=== PATIENT | female | born 1940 | race Caucasian/White ===

== ENCOUNTER 2016-08-18 08:34 | Inpatient (IN) ==
--- NOTE | 2016-08-15 22:32 | Discharge Summary ---
<Delicia Dangelo - Last Filed: 08/18/16 10:37> Date of Encounter: 08/18/16 - Discharge Diagnosis (1) Arthritis of knee, right Priority: Primary Status: Acute (2) Hypertension Status: Chronic Qualifiers: Hypertension type: unspecified secondary hypertension Qualified Code(s): I15.9 - Secondary hypertension, unspecified; I15 - Secondary hypertension (3) Obesity (BMI 35.0-39.9 without comorbidity) Status: Chronic (4) Thyroid disease Status: Chronic - Discharge Medications Home Medications: Albuterol Sulfate [Ventolin Hfa] 2 puff IH Q4-6H PRN 06/10/16 [History] Docusate [Colace] 100 mg PO DAILY 06/10/16 [History] Ferrous Sulfate [Iron] 325 mg PO TID 06/10/16 [History] Levothyroxine [Synthroid] 75 mcg PO DAILY 06/10/16 [History] Omeprazole [PriLOSEC] 20 mg PO DAILY 06/10/16 [History] Folic Acid 1 mg PO DAILY #90 tablet 06/17/16 [Rx] Ascorbic Acid [Vitamin C] 250 mg PO DAILY 08/18/16 [History] Aspirin Enteric Coated [Aspirin EC] 325 mg PO DAILY #21 tablet.dr 08/18/16 [Rx] Cyclobenzaprine [Flexeril] 10 mg PO TID PRN 08/18/16 [History] Haloperidol [Haldol] 0.5 mg PO HS 08/18/16 [History] Meloxicam [Mobic] 7.5 mg PO DAILY 08/18/16 [History] OxyCODONE Immed Rel [Roxicodone 5 MG] 5 - 10 mg PO Q6HR PRN #40 tablet 08/18/16 [Rx] Allergies/Adverse Reactions: Allergies Penicillins [PCN] Allergy (Unknown, Verified 08/18/16 09:08) Rash Primary care physician: Sharonda Bender CNP - Patient Status Disposition: Transfer Inpatient Rehab Fac Condition: Good - Discharge Instructions Follow Up With: Sharnoda Bender CNP [Primary Care Provider] - - Hospital Course Hospital course: Ms. Langston is a 75 year old female - Time Spent with Patient Total time spent providing and/or coordinating discharge services: <Jhon Hall - Last Filed: 08/20/16 11:36> Date of Encounter: 08/20/16 Time of Encounter: 11:36 - Discharge Diagnosis (1) Hypertension Priority: Secondary Status: Chronic Qualifiers: Qualified Code(s): I15.9 - Secondary hypertension, unspecified; I15 - Secondary hypertension (2) Obesity (BMI 35.0-39.9 without comorbidity) Priority: Secondary Status: Chronic (3) Thyroid disease Priority: Secondary Status: Chronic (4) Arthritis of knee, right Priority: Primary Status: Acute (5) Acute blood loss anemia Priority: Primary Status: Acute Primary care physician: Sharonda Bender CNP - Patient Status Functional capacity at discharge: uses cane/walker Overall status at discharge: patient is progressing back to baseline - Hospital Course Hospital course: Ms. Langston is a 75 year old female The patient had an uneventful postoperative course. They received antibiotics and physical therapy and were discharged in stable condition. There will follow -up in the office in 2 weeks. - Time Spent with Patient Total time spent providing and/or coordinating discharge services:
--- NOTE | 2016-08-18 08:47 | History & Physical Report ---
Date of Encounter: 08/18/16 Time of Encounter: 08:46 24 Hour HP Update - Instructions Instructions: If the History and Physical is less than 30 days old and was completed prior to A.M. admission and or procedure and has NOT been updated on calendar day of procedure please complete this update prior to performing procedure. - Update Patient reports changes in Medical Condition: No Changes in assessment/condition: No Changes in Medication: No Preop tests/diagnostics Reviewed: Yes Surgery Remains Indicated: Yes Consent for Planned Operative Procedure(s) Verified: Yes - Pre-Operative Checklist Preoperative Checklist Indicated: No Prophylactic Antibiotic Ordered: Yes Is VTE Prophylaxis Indicated?: Yes
[2016-08-18] MEDS ORDERED: Lidocaine 1% 20 ML MDV ID ONE (09:03)
[2016-08-18] MEDS ORDERED: Clindamycin 900 MG/50 ML 900 MG/50 ML IV.SOLN IVPB ONE (09:03)
--- NOTE | 2016-08-18 09:08 | Anesthesia Evaluation PreOp ---
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 SUPERVISOR History: Denies Any Significant HX Other Medical History: Thyroid, GERD Anesthesia History: No Prior Anesthetic Complications, Past Anesthesia (c/s, appy, cholecyst, t&a, tahbso, r tka, bilat cataracts) Alcohol Use: none Drug use: none Medications and Allergies Albuterol Sulfate [Ventolin Hfa] 2 puff IH Q4-6H PRN 06/10/16 [History] Docusate [Colace] 100 mg PO DAILY 06/10/16 [History] Ferrous Sulfate [Iron] 325 mg PO TID 06/10/16 [History] Levothyroxine [Synthroid] 75 mcg PO DAILY 06/10/16 [History] Omeprazole [PriLOSEC] 20 mg PO DAILY 06/10/16 [History] Folic Acid 1 mg PO DAILY #90 tablet 06/17/16 [Rx] Ascorbic Acid [Vitamin C] 250 mg PO DAILY 08/18/16 [History] Cyclobenzaprine [Flexeril] 10 mg PO TID PRN 08/18/16 [History] Haloperidol [Haldol] 0.5 mg PO HS 08/18/16 [History] Meloxicam [Mobic] 7.5 mg PO DAILY 08/18/16 [History] Allergies Penicillins [PCN] Allergy (Unknown, Verified 08/18/16 09:08) Rash - Meds/Allergy Pre-op Review Medications Reviewed: Yes Allergies Reviewed: Yes Beta Blockers on Current Med List: No Anesthesia Results - Labs Laboratory Tests 08/11/16 08/11/16 08/11/16 16:02 16:02 16:02 Hgb 12.3 Hct 41.2 Plt Count 218 PT 12.7 H INR 1.2 APTT 24.6 L Sodium 135 L Potassium 3.7 Creatinine 0.70 - Imaging EKG: report reviewed () Anesthesia Exam O2 Sat Height 1.45 m Weight 77.564 kg Height: 1.45 Weight: 77 NPO (# of Hours): >8 - HEENT Pupil (Motor): Pupils equal, EOMI Mallampati: II Teeth: Edentulous Denture Type: Upper: Complete, Lower: Complete Oral Opening: Greater than 3 - WASTEWATER SUPERVISOR LOC: Oriented WASTEWATER SUPERVISOR Motor: Normal RUE, Normal LUE, Normal RLE, Normal LLE, Normal Face WASTEWATER SUPERVISOR Sensory: Normal: RUE, LUE, RLE, LLE, Face - Cardiac Rhythm: Regular Murmur: None - Pulmonary Breath Sounds: bilateral Clear Respiratory Effort: Symmetrical Anesthesia Assess/Plan ASA Score: 3 Modified Asa Scale for Level of Consciousness: Cooperative, oriented, and tranquil Anesthetic Plan: General, Regional Monitoring Plan: Standard Monitors Recovery Plan: PACU
[2016-08-18] MEDS: Ringers Solution, Lactated 1,000 ML IVC SCH ×3 (09:15→23:48)
[2016-08-18] MEDS ORDERED: *HR* Propofol 200 MG/20 ML VIAL IVP ONE (09:30)
[2016-08-18] MEDS ORDERED: Lidocaine -MPF 2% 2 ML VIAL ONE (09:30)
[2016-08-18] MEDS ORDERED: *HR* Midazolam HCl 2 MG/2 ML VIAL ONE (09:30)
[2016-08-18] MEDS ORDERED: *HR* Succinylcholine 200 MG/10 ML VIAL IVP ONE (09:30)
[2016-08-18] MEDS ORDERED: Lidocaine -MPF 4% 5 ML AMPUL ONE (09:30)
[2016-08-18] MEDS ORDERED: Dexamethasone 4 MG/ML VIAL ONE (09:30)
[2016-08-18] MEDS ORDERED: Ondansetron 4 MG/2 ML VIAL ONE (09:30)
[2016-08-18] MEDS ORDERED: *HR* FentaNYL (PF) 100 MCG/2 ML VIAL ONE ×2 (09:30→11:23)
[2016-08-18] MEDS ORDERED: Bupivacaine/Clonidine Syringe 1 EACH SYRINGE ONE (10:04)
--- NOTE | 2016-08-18 10:14 | Orthopedic Operative Note ---
Date of procedure: 08/18/16 Pre-op diagnosis: Right knee arthritis Post-op diagnosis: same Procedure: Procedure: Right Total knee replacement Estimated blood loss: 400 cc Hardware: Arthrex Femur: 7 Tibia: 6 PS insert: 14 Patella:40 Exam Under anesthesia: Full Motion and no instability Procedural Notes: Grade 4 arthritic changes medial 3 arthritic changes patellofemoral joint Operative procedure: The patient was brought to the operating room and placed on the operating room table. After general anesthesia was administered the operative knee was examined. Findings were noted in the exam under anesthesia. The operative extremity was prepped and draped in sterile surgical fashion. The patient received IV antibiotics prior to skin incision. A standard midline incision was made centered over the patella. The incision was made through the skin and subcutaneous tissue. A medial parapatellar tendon approach was performed. Care was taken to preserve tissue along the medial aspect of the patella. And to protect the patella tendon. The deep MCL was released off the medial tibia. The infra patella fat pad was excised. Knee was brought into flexion. Patient was noted to have grade 4 arthritic changes medial compartment grade 3 arthritic changes at the femoral joint. The entry hole was made for the intramedullary femoral guide. The guide was seated in 6 degrees of valgus. Anterior cut was made followed by the distal cut. The ACL the PCL the medial and the lateral menisci were excised. The tibia was subluxed forward. The entry hole was made for the intramedullary tibial guide. Guide was seated to resect 2 mm off the more abnormal side. The knee was brought into flexion the distal femur was sized 7. The femoral guide was seated , the anterior cut was made followed by the posterior condylar cut, followed by the chamfer cuts. The finishing guide was seated the box cut was made and the lug holes were drilled. The tibia was sized 6, the tibial tray was seated and prepared with the large drill followed by the fin cutter. Trial reduction revealed full extension no varus valgus instability with the appropriate 14 PS Toshia. The patella was everted and cut was made at the level of the insertion of the quadriceps and patella tendon. The patella was sized 40 the guide was seated and the lug holes are drilled. Trial reduction revealed excellent patella tracking. All trial components were removed all bony surfaces were irrigated. The tibia was cemented first followed by the femur. The 14 PS Toshia was seated and the knee was brought into full extension. The patella was cemented and held in place with the patellar holding clamp. After the cement had hardened, the knee sat for 2 minutes with a Betadine saline solution. The knee was then irrigated out with 2 L of pulse irrigation. The extensor mechanism was closed with #2 FiberWire suture and #2 PDS suture. The subcutaneous tissue was then irrigated and closed deep with #1 PDS suture superficially with 0 PDS suture and skin was closed with skin karin. The patient was then placed in a sterile dressing and a postoperative brace extubated and transferred to recovery room in stable condition. Anesthesia: MIKAELA Surgeon: Jhon Hall Principal Clerk: Delicia Dangelo Condition: stable Disposition: PACU
--- NOTE | 2016-08-18 10:45 | Anesthesia Procedures ---
Date of Encounter: 08/18/16 Time of Encounter: 10:10 Procedures: Anesthesia - Nerve Block Procedure Date: 08/18/16 Time: 10:10 Allergies/Adv Reactions: PCN Pre-op Diagnosis: RIGHT KNEE ARTHRITIS Surgical Procedure: RIGHT KNEE TKA Checklist: Correct Patient Identifier, Correct procedure, History checked Correct side: Right Blood Thinner: No Monitor Applied: EKG, BP, Pulse Oximetry Supplemental Oxygen via Nasal Cannula (L/min): 2 Sedation: Versed (mg): 1 Sedation: Fentanyl (mcg): 50 Indication: Post Op Analgesia Pre-op Neuro Deficits: No Block Type: Femoral (ipack ) Catheter placed: No Sterile Technique: Yes Ultrasound used: Yes Anatomy identified: Yes Visual spread of Local: Yes Neuro Stimulation: Yes (femoral ) Nerve Stimulator Range: 0.2 - 0.4 mA Blood on Needle Aspiration: No Smooth Injection of Local: Yes Pain with Injection of Local: No Prep: Chlorhexadine Needle: 22 x 50 mm Stimuplex Local: 0.25% Bupivicaine w/Clonidine 20 mcg/cc (ipack 20ml), Ropivacaine (0.5% + decadron 8mg -femoral ) Volume (cc): 50 Number of Attempts: 1 Complications: None/effective block Vitals: Vital Signs - Last 8 Hours Temp Pulse Resp BP Pulse Ox 08/18/16 10:13 73 16 110/68 98 08/18/16 09:55 78 16 118/79 96 08/18/16 09:08 98.4 F 83 18 121/80 94 L Intake and Output 08/17/16 08/18/16 08/18/16 23:59 07:59 15:59 Other: Weight 77.564 kg Patient Weight 08/18/16 23:59 Weight 77.564 kg Comments: per dr. dave request
[2016-08-18] MEDS ORDERED: *HR* Promethazine 25 MG/ML VIAL IVP PRN (10:46)
--- NOTE | 2016-08-18 11:15 | Orthopedic Operative Note ---
Date of procedure: 08/18/16 Pre-op diagnosis: Aseptic loosening unstable right total knee Post-op diagnosis: same Procedure: Procedure: Right revision total knee Estimated blood loss: 200 mL Hardware: Biomet SS K 60 right femur 14 x 80 stem, 63 stem tibia, 11 x 80 stem. 12 constrained Toshia, Exam Under anesthesia: Full extension and flexion to 90 degrees significant varus valgus instability Procedural Notes: Unstable total knee, aseptic loosening femur. Operative procedure: The patient was brought to the operating room and placed on the operating room table. After general anesthesia was administered the operative knee was examined. Findings were noted in the exam under anesthesia. The operative extremity was prepped and draped in sterile surgical fashion. The patient received IV antibiotics prior to skin incision. A standard midline incision was made centered over the patella through the old incision. The incision was made through the skin and subcutaneous tissue. A medial parapatellar tendon approach was performed. Care was taken to preserve tissue along the medial aspect of the patella. And to protect the patella tendon. The deep MCL was released off the medial tibia. The infra patella fat pad was excised. Fluid was encountered this was normal joint fluid, Cultures were obtained and gram . The knee was brought into flexion the poly-was removed. The interface between the patient's femoral component and distal femur were disrupted with a osteotome and oscillating saw. Femoral component was removed removed without significant bone loss. The femoral component was loose. Attention was then turned to the tibial component. The same technique was used to remove the tibial component by disrupting the interface between the patient's tibial component and the patients proximal tibia. The tibial component was removed without significant bone loss. The tibia was sized to a 63 it was reamed up to a 11 x 80. Trial had good fit and fixation. The femur was sized to a 60, was reamed up to a 14 x 80. The finishing guide was seated and the box cut was made. The trial had good fit and fixation. Both trial components were seated and the 14 constrained Toshia was seated and secured. The knee had full flexion and full extension with no instability. Patella had excellent patella tracking. The trial components were removed. The knee sat for 2 minutes with a Betadine saline solution. It was irrigated out with 2 L of pulse irrigation. The components were assembled on the back table, the tibia cemented first followed by the femur. The 12 constrained liner was seated and secure. The knee was brought to full extension while the cement hardened. The patella was cemented and held in place with patellar holding clamp. After the cement hardened the knee was irrigated out again. The extensor mechanism was closed with a running #2 Fiberwire suture and a running #2 PDS suture. The deep tissue was irrigated and closed deep with #1 PDS suture superficially with 0 PDS suture. The skin was closed with skin karin. The patient was placed in a sterile dressing and postoperative brace. They were extubated and transferred to recovery room in stable condition. Anesthesia: MIKAELA Surgeon: Jhon Hall Pulp Refiner Operator: Delicia Dangelo Condition: stable Disposition: PACU
[2016-08-18] MEDS: *HR* HYDROmorphone (PF) 1 MG/ML SYRINGE IVP PRN ×2 (12:00→12:05)
[2016-08-18 12:05] LABS: Hemoglobin 9.8 g/dL (11.5-15.4)
--- NOTE | 2016-08-18 12:29 | Anesthesia Evaluation Post Op ---
Date of Encounter: 08/18/16 Time of Encounter: 12:28 - Vital Signs Vital Signs: Vital Signs/O2 Sat/Glucose, Most Recent Temp Pulse Resp BP Pulse Ox 98.0 F 70 16 108/68 100 08/18/16 12:08 08/18/16 12:08 08/18/16 12:08 08/18/16 12:08 08/18/16 12:08 - Lungs Lungs: Clear Ascult./Percussion - Airway Airway: Non-obstructed - Cardiovascular Regular Rate, Baseline Rhythm - Mental Status Mental Status: Alert & Oriented, Answers Appropriately - Pain Pain Scale: 0 Pain Scale used: Speedy (Faces) - Nausea Vomiting Nausea Vomiting: Not Present - Hydration Hydration: Tolerates oral liquids, Has not voided Notes: 08/18/16 12:28 naac - Discharge PostOp Status: Transfer Patient to floor
[2016-08-18] MEDS ORDERED: *HR* OxyCODONE Immed Rel 5 MG TABLET PO PRN (13:03)
[2016-08-18] MEDS ORDERED: Temazepam 15 MG CAPSULE PO PRN (13:03)
[2016-08-18] MEDS ORDERED: Ondansetron 4 MG/2 ML VIAL IVP PRN (13:03)
[2016-08-18] MEDS ORDERED: Acetaminophen 325 MG TABLET PO PRN (13:03)
[2016-08-18] MEDS ORDERED: Sennosides 8.6 MG TABLET PO PRN (13:03)
[2016-08-18] MEDS ORDERED: *HR* HYDROmorphone (PF) 1 MG/ML SYRINGE IVP PRN (13:03)
[2016-08-18] MEDS ORDERED: MOM Conc 10 ML UD.LIQ PO PRN (13:03)
[2016-08-18] MEDS ORDERED: Naloxone 0.4 MG/ML INJ IVP PRN (13:03)
[2016-08-18] MEDS: *HR* Enoxaparin 30 MG/0.3 ML SYRINGE SQ SCH (17:36)
[2016-08-18] MEDS: Clindamycin 900 MG/50 ML 900 MG/50 ML IV.SOLN IVPB SCH ×2 (17:37→23:45)
[2016-08-18] MEDS ORDERED: *HR* Enoxaparin 30 MG/0.3 ML SYRINGE SQ SCH (18:00)
[2016-08-18] MEDS: *HR* OxyCODONE Immed Rel 5 MG TABLET PO PRN (20:50)
[2016-08-19] MEDS: *HR* Enoxaparin 30 MG/0.3 ML SYRINGE SQ SCH ×2 (05:57→17:04)
[2016-08-19 06:04] LABS: Hematocrit 29.5 % (35.3-44.9); Hemoglobin 9.3 g/dL (11.5-15.4)
[2016-08-19] MEDS: *HR* OxyCODONE Immed Rel 5 MG TABLET PO PRN ×2 (06:22→15:25)
[2016-08-19 06:53] LABS: BUN/Creatinine Ratio 13 (6-26); Blood Urea Nitrogen 9 mg/dL (7-20); Calcium 7.8 mg/dL (8.6-10.8); Carbon Dioxide 22 mEq/L (19-29); Chloride 99 mEq/L (98-109); Glucose 119 mg/dL (70-99); Osmolality,Calculated 272 (280-300); Potassium 3.6 mEq/L (3.5-4.5); Sodium 131 mEq/L (136-145); eGFR For African Americans > 60 (> 60); eGFR For Non-African Americans > 60 (> 60)
--- NOTE | 2016-08-19 08:03 | Orthopedics Progress Note ---
Date of Encounter: 08/19/16 Time of Encounter: 08:02 - Assessment and Plan (1) Hypertension Current Visit: Yes Status: Chronic Qualifiers: Qualified Code(s): I15.9 - Secondary hypertension, unspecified; I15 - Secondary hypertension (2) Obesity (BMI 35.0-39.9 without comorbidity) Current Visit: Yes Status: Chronic (3) Thyroid disease Current Visit: Yes Status: Chronic (4) Arthritis of knee, right Current Visit: Yes Status: Acute (5) Acute blood loss anemia Current Visit: Yes Status: Acute Subjective Interval history: Patient was seen this morning doing well without complaints. Afebrile vital signs stable. Operative extremity: Neurovascularly intact Dressing clean dry and intact Calves nontender Assessment and plan: Continue with postoperative care Hematocrit 29 Objective Vital signs: Vital Signs Temp Pulse Resp BP Pulse Ox 08/19/16 06:31 98.0 F 72 16 101/65 93 L 08/18/16 22:23 97.2 F L 72 17 142/52 97 08/18/16 21:10 98 08/18/16 14:00 97.9 F 78 16 137/89 97 08/18/16 13:30 97.5 F L 76 16 139/82 99 08/18/16 13:00 97.6 F 74 15 125/80 100 08/18/16 12:28 75 16 120/80 100 08/18/16 12:18 73 16 125/75 100 08/18/16 12:08 98.0 F 70 16 108/68 100 08/18/16 11:58 71 16 112/72 99 08/18/16 11:48 72 16 111/71 94 L 08/18/16 11:38 98.4 F 68 16 107/68 100 08/18/16 10:13 73 16 110/68 98 08/18/16 09:55 78 16 118/79 96 08/18/16 09:08 98.4 F 83 18 121/80 94 L Intake and Output 08/18/16 08/19/16 08/19/16 23:59 07:59 15:59 Intake Total 50 / 50 50 / 50 Balance 50 / 50 50 / 50 Intake: IV Fluids 50 / 50 50 / 50 Cleocin 900 MG/50 ML 900 50 / 50 50 / 50 mg In 50 ml @ 50 mls/hr IVPB Q8HR [facility] Rx#: [id number] - Labs CBC & BMP: 08/19/16 04:06 08/19/16 04:06 Labs: Abnormal lab results Hgb 9.3 g/dL (11.5-15.4) L 08/19/16 04:06 Hct 29.5 % (35.3-44.9) L 08/19/16 04:06 Sodium 131 mEq/L (136-145) L 08/19/16 04:06 Glucose 119 mg/dL (70-99) H 08/19/16 04:06 Calculated Osmolality 272 (280-300) L 08/19/16 04:06 Calcium 7.8 mg/dL (8.6-10.8) L 08/19/16 04:06 - VTE Documentation of Mechanical Device: Venous foot pump, device Consult Discharge Plan - Plan Referrals: Sharonda Bender, FACTORY CLERK [Primary Care Provider] -
[2016-08-19] MEDS: Ascorbic Acid 500 MG TABLET PO SCH (08:48)
[2016-08-19] MEDS: Folic Acid 1 MG TABLET PO SCH (08:49)
[2016-08-19] MEDS: Ringers Solution, Lactated 1,000 ML IVC SCH (14:20)
[2016-08-20 05:05] LABS: Hematocrit 30.7 % (35.3-44.9); Hemoglobin 9.7 g/dL (11.5-15.4)
[2016-08-20 05:24] LABS: BUN/Creatinine Ratio 14 (6-26); Blood Urea Nitrogen 10 mg/dL (7-20); Calcium 8.3 mg/dL (8.6-10.8); Carbon Dioxide 24 mEq/L (19-29); Chloride 102 mEq/L (98-109); Glucose 121 mg/dL (70-99); Osmolality,Calculated 282 (280-300); Potassium 3.3 mEq/L (3.5-4.5); Sodium 136 mEq/L (136-145); eGFR For African Americans > 60 (> 60); eGFR For Non-African Americans > 60 (> 60)
--- NOTE | 2016-08-20 06:26 | Orthopedics Progress Note ---
Date of Encounter: 08/20/16 Time of Encounter: 06:26 - Assessment and Plan (1) Hypertension Current Visit: Yes Status: Chronic Qualifiers: Qualified Code(s): I15.9 - Secondary hypertension, unspecified; I15 - Secondary hypertension (2) Obesity (BMI 35.0-39.9 without comorbidity) Current Visit: Yes Status: Chronic (3) Thyroid disease Current Visit: Yes Status: Chronic (4) Arthritis of knee, right Current Visit: Yes Status: Acute (5) Acute blood loss anemia Current Visit: Yes Status: Acute Subjective Interval history: Patient was seen this morning doing well without complaints. Afebrile vital signs stable. Operative extremity: Neurovascularly intact Dressing clean dry and intact Calves nontender Assessment and plan: Continue with postoperative care Hematocrit 30.7 discharged tomorrow Objective Vital signs: Vital Signs Temp Pulse Resp BP Pulse Ox 08/20/16 04:46 98.4 F 96 16 123/71 94 L 08/20/16 01:16 98.4 F 105 15 108/58 95 08/19/16 22:13 97.6 F 99 16 114/64 97 08/19/16 14:55 98.8 F 95 16 112/67 97 08/19/16 11:20 98.0 F 93 16 106/59 96 08/19/16 06:31 98.0 F 72 16 101/65 93 L Intake and Output 08/19/16 08/19/16 08/20/16 15:59 23:59 07:59 Intake Total 800 / 800 Balance 800 / 800 Intake: IV Fluids 800 / 800 Lactated Ringers 1,000 ML 800 / 800 @ 75 mls/hr IVC .[id number] Rx#:[id number] Other: # Urine Diapers 1 - Labs CBC & BMP: 08/20/16 03:55 08/20/16 03:55 Labs: Abnormal lab results Hgb 9.7 g/dL (11.5-15.4) L 08/20/16 03:55 Hct 30.7 % (35.3-44.9) L 08/20/16 03:55 Potassium 3.3 mEq/L (3.5-4.5) L 08/20/16 03:55 Glucose 121 mg/dL (70-99) H 08/20/16 03:55 Calcium 8.3 mg/dL (8.6-10.8) L 08/20/16 03:55 - VTE Documentation of Mechanical Device: Venous foot pump, device Consult Discharge Plan - Plan Referrals: Sharonda Bender, ERVIN [Primary Care Provider] -
[2016-08-20] MEDS: *HR* Enoxaparin 30 MG/0.3 ML SYRINGE SQ SCH (06:41)
[2016-08-20] MEDS: Folic Acid 1 MG TABLET PO SCH (08:43)
[2016-08-20] MEDS: Ascorbic Acid 500 MG TABLET PO SCH (08:43)
[2016-08-20] MEDS: *HR* OxyCODONE Immed Rel 5 MG TABLET PO PRN ×2 (08:45→15:31)
[2016-08-20 11:02] VITALS: BP 107/69
== END 2016-08-20 15:55 | DRG 467 ==
LOC: SAMDAY 08:34 → 3NENU 13:04
PROVIDERS: ADMIT Orthopaedic Surgery; ATTEND Orthopaedic Surgery

== ENCOUNTER 2017-06-10 12:50 | Inpatient (IN) ==
--- NOTE | 2017-06-10 13:00 | Emergency Department Note ---
Disposition Clinical Impression: Weakness, Rectovaginal fistula Urinary tract infection Qualifiers: Urinary tract infection type: site unspecified Hematuria presence: without hematuria Qualified Code(s): N39.0 - Urinary tract infection, site not specified Rhabdomyolysis Qualifiers: Rhabdomyolysis type: non-traumatic Qualified Code(s): M62.82 - Rhabdomyolysis Disposition: Admitted As Inpatient Condition: Fair Time of Disposition: 17:00 General Adult HPI - General Chief complaint: ED Fall Stated complaint: fall right shoulder pain Time Seen by Provider: 06/10/17 12:54 Source: EMS Mode of arrival: EMS Limitations: altered mental status Nursing Notes Reviewed: Yes Vital Signs Reviewed: Yes - History of Present Illness HPI Narrative: 76-year-old female presents to the ED via EMS for found down and confusion. Patient has some noticeable right-sided weakness and facial swelling. She lives alone at home and unsure of last well-known. She was found down for unknown amount of time. She presents confused unsure of where she is at. She has obvious swelling to her face. It appears that she may have fallen but she is unable to recall any of the events. She denies any pain at this time. She is unaware she takes any anticoagulants. I have been informed that the family will be coming in shortly. Will obtain further history at that time. Currently review of systems unattainable due to medical condition. Concern for possible rhabdomyolysis or stroke. CT of the head and cervical spine. Also obtained chest x-ray and pelvic for any screening for fracture. CPK basic labs. EKG ordered. It appears that she is incontinent and will also obtain urinalysis. Pain Scale: 0 - Related Data Home Medications Medication Instructions Recorded Confirmed Albuterol Sulfate [Ventolin Hfa] 2 puff IH Q4-6H PRN 06/10/16 05/30/17 Docusate [Colace] 100 mg PO DAILY 06/10/16 05/30/17 Ferrous Sulfate [Iron] 325 mg PO TID 06/10/16 05/30/17 Levothyroxine [Synthroid] 75 mcg PO 0630 06/10/16 05/30/17 Omeprazole [PriLOSEC] 20 mg PO DAILY 06/10/16 05/30/17 Ascorbic Acid [Vitamin C] 250 mg PO DAILY 08/18/16 05/30/17 Cyclobenzaprine [Flexeril] 10 mg PO TID PRN 08/18/16 05/30/17 Haloperidol [Haldol] 0.5 mg PO HS 08/18/16 05/30/17 Meloxicam [Mobic] 7.5 mg PO DAILY 08/18/16 05/30/17 Previous Rx's Medication Instructions Recorded Folic Acid 1 mg PO DAILY #90 tablet 06/17/16 Clindamycin [Cleocin] 150 mg PO Q6HR #7 capsule 10/21/16 Triamcinolone Acet 0.1% CRM 1 appl TP BID #1 tube 05/31/17 [Kenalog] Allergies Allergy/AdvReac Type Severity Reaction Status Date / Time Penicillins [PCN] Allergy Unknown Rash Verified 06/10/17 12:59 Limitations: ROS unobtainable due to patients medical condition Past Medical History - Past Medical History Source: old records reviewed, obtained from family Medical history: Reports: dementia, hypertension Surgical history: Reports: appendectomy, , cataract, cholecystectomy, knee replacement, GIN/BSO Psychiatric history: Reports: no psych history VENUE COORDINATOR history: Reports: non-contributory - Social History Smoking Status: Never smoker Smokeless Tobacco Status: No Alcohol use: Reports: none Drug use: Reports: none Physical Exam - General Limitations: altered mental status General appearance: alert, in no apparent distress - Head Head exam: normocephalic, normal inspection - Expanded Head Exam Head exam physicial: Present: contusion (Right periorbital) - Eye Eye exam: Present: PERRL, EOMI, periorbital swelling (right, no erythema), periorbital tenderness. Absent: scleral icterus - ENT ENT exam: normal exam, normal oropharynx, mucous membranes moist - Neck Neck exam: Present: normal inspection, full ROM, trachea midline - Chest Chest inspection: Present: normal inspection, symmetric chest wall rise. Absent : tenderness - Respiratory Respiratory exam: Present: normal lung sounds bilaterally. Absent: respiratory distress, wheezes - Cardiovascular Cardiovascular exam: Present: regular rate, normal rhythm, normal heart sounds - Abdominal Exam Abdominal exam: Present: soft, Non-Tender. Absent: tenderness, distention, guarding, rebound, rigidity - Female Screen Printing Inspector present during exam: Yes External Exam: Present: normal external exam Speculum Exam: Present: foreign body (SUSPECT PESSARY, TRIANGULAR SHAPED WITH LOOP, UNABLE TO REMOVE), other (STOOL, IMMEDIATE GAS RELEASE FROM VAGINAL VAULT , CONCERN OF RECTOVAGINAL FISTULA) - Expanded Lower Extremity Exam Hip/Pelvis exam: Present: tenderness (RIGHT HIP), internal rotation, shortening , pelvis stable, other (RIGHT HIP FLEXED) Upper leg exam: Present: tenderness, other (FLEXED) Neurovascular/Tendon exam: Present: normal capillary refill. Absent: pulse deficit - Expanded Neurological Exam Patient oriented to: Present: person. Absent: place ([address], [facility]OS[facility]), time (INCORRECT) Cranial nerves: EOM function (II, III, IV, ): Normal, facial sensation (V): Normal, facial palsy (VII): Normal, gag reflex (IX): Normal, spinal accessory function (XI): Normal, tongue deviation (XII): Normal - Skin Skin exam: Present: warm, dry, intact, normal color. Absent: rash, cyanosis, diaphoresis Course Course Narrative: 76-year-old female found down from unknown amount of time. Daughter is now at bedside reports leaving the house 2100 last night showing up this morning 1100 with the patient found on the ground. She required assistance with patients grandson to assist her up.Swelling to the right face. She is normally not very ambulatory at home. On exam patient appears confused. She knows her name was unaware where she is at her what time of day. Neurologic exam is nonfocal. Her right leg is held and flexion at the hip and knee. Some tenderness to the right hip. Pelvis is stable. Good peripheral pulses. She is complaining of some right hand pain as well. Concern for rhabdomyolysis will check a CPK. Patient has a pungent smell concern for urinary tract infection. Also scan her CT head, cervical spine, x-ray of the hip and chest. Basic labs concern for possible sepsis. Blood cultures and lactate ordered. Patient will likely need admission. Starter her on aggressive fluid resuscitation the suspicion of rhabdomyolysis. At this time no stroke alert initiated as last well is unknown. - Reevaluation(s) Reevaluation #1: CT of the head does not reveal hemorrhagic stroke. Chronic changes. Cervical spine is unremarkable for fracture. Chest x-ray unremarkable. Pelvis x-ray shows concern for possible right femoral head fracture. CT of the abdomen and pelvis ordered to the further evaluate the hip as well as any other abdominal abnormality. Her abdomen is soft nontender nondistended. Review for lab shows a chronic anemia of 9. Creatinine normal. Her CPK is significantly elevated 3626 concerning for rhabdomyolysis. She has been given a total of 2 L normal saline bolus. Patient is not hypotensive or septic. Urinalysis is consistent with infection. Lactate is 1.4. Troponin 0.01. IMPRESSION: No definite pelvic bone fracture or hip fracture identified. MRI for further evaluation with continued clinical concern. Chronic appearing compression fractures of multiple thoracic and lumbar vertebral bodies. Possible rectovaginal fistula. Reevaluation #2: The radiologist called regarding CT result. No fractures identified. Suspicion for possible recto vaginal fistula with a foreign body suspect pessary. I had performed a speculum exam which reveals a Corral catheter that was placed here by our emergency department staff in the correct place however there is also a plastic loop coming out of the vagina. With a speculum I was able to examine and shows a foreign body in the vaginal vault with immediate gas released and stool visualized. Attempted to remove however concern for adhesions and erosion through the vaginal vault consistent with this fistula. The surgeon conference planner notified. Spoke with her daughter in states she had a pessary placed by Dr. Ventura several years ago. Suspect this is likely the cause. No suspicion for fracture however patient is not normally ambulatory according to daughter. May require MRI inpatient. She has been given a dose of Rocephin for urinary tract infection. Patient will require admission for urinary tract infection, recto vaginal fistula, rhabdomyolysis. - Consultations Consultation #1: Spoke with on-call surgeon Dr. Morris, concern for rectovaginal fistula. Stool in the vaginal vault with air and gas upon speculum exam. Appears to be a triangular foreign body possible pessary, unable to remove. Surgery will come to evaluate. No other orders at this time. Time: 16:25 Consultation #2: Spoke with on-call hospitalist jaspreet Recinos to admit for weakness, UTI, rhabdo, rectovaginal fistula. No further orders at this time. Suggested patient will likely need a social media marketing specialist consultation on the floor. Time: 17:24 Vital Signs Temperature 97.4 F L 06/10/17 12:53 Pulse Rate 111 06/10/17 12:53 Respiratory Rate 16 06/10/17 12:53 Blood Pressure 124/77 06/10/17 12:53 O2 Sat by Pulse Oximetry 98 06/10/17 12:53 Temperature 97.4 F L 06/10/17 12:53 Pulse Rate 95 06/10/17 15:27 Respiratory Rate 16 06/10/17 17:44 Blood Pressure 104/66 06/10/17 17:44 O2 Sat by Pulse Oximetry 98 06/10/17 15:27 Oxygen Delivery Oxygen Delivery Room Air Medical Decision Making - MDM Narrative Medical decision making narrative: Patient was discussed with my attending physician who agrees with ED management and final disposition. They independently evaluated the patient. Please refer to their attestation to this encounter for additional information. This note was generated by [employer] recognition software and as a result grammatical or spelling errors may occur using this program. - Medical Records Medical records reviewed: Yes I reviewed the patient's medical records. - Lab Data Lab results reviewed: Yes I reviewed the patient's lab results. Result diagrams: 06/10/17 14:13 06/10/17 14:13 Lab Results 06/10/17 06/10/17 06/10/17 Range/Units 13:18 14:13 14:13 WBC 11.0 (4.3-11.1) K/mcL RBC 3.56 L (3.82-4.97) M/mcL Hgb 9.8 L (11.5-15.4) g/dL Hct 30.8 L (35.3-44.9) % MCV 86.5 (83.0-100.0) fL MCH 27.5 L (28.0-33.3) pg MCHC 31.8 (31.6-35.5) g/dL RDW 13.1 (11.5-14.5) % Plt Count 214 (140-400) K/mcL MPV 9.8 (9.4-12.4) fL Immature Gran % 0.5 (0-4) % Seg Neutrophils % 86.3 % Lymphocytes % 6.2 % Monocytes % 6.7 % Eosinophils % 0.1 % Basophils % 0.2 % Neutrophils # 9.5 H (1.6-8.9) K/mcL Lymphocytes # 0.7 (0.6-4.6) K/mcL Monocytes # 0.7 (0.0-1.3) K/mcL Eosinophils # 0.0 (0.0-0.6) K/mcL Basophils # 0.0 (0.0-0.2) K/mcL Sodium 138 (136-145) mEq/L Potassium 3.5 (3.5-4.5) mEq/L Chloride 106 (98-109) mEq/L Carbon Dioxide 22 (19-29) mEq/L BUN 11 (7-20) mg/dL Creatinine 0.67 (0.57-1.11) mg/dL Est GFR ( Amer) > 60 (> 60) Est GFR (Non-Af Amer) > 60 (> 60) BUN/Creatinine Ratio 16 (6-26) Glucose 105 H (70-99) mg/dL Calculated Osmolality 286 (280-300) Lactic Acid (0.5-2.2) mmol/L Calcium 7.7 L (8.6-10.8) mg/dL Total Bilirubin 0.6 (0.2-1.2) mg/dL Direct Bilirubin 0.3 (0.0-0.5) mg/dL Indirect Bilirubin 0.3 (0.0-1.2) mg/dL AST 61 H (5-34) Units/L ALT 25 (0-55) Units/L Alkaline Phosphatase 98 (38-126) Units/L Creatine Kinase 3626 H (29-168) Units/L Troponin I (0-0.03) ng/mL Serum Total Protein 6.6 (6.0-8.3) g/dL Albumin 2.5 L (3.5-5.0) g/dL Globulin 4.1 H (2.4-3.5) g/dL Albumin/Globulin Ratio 0.6 L (1.1-2.2) Urine Color Yellow (Yellow) Urine Clarity Cloudy A (Clear) Urine pH 6.0 (5.0-8.0) pH Units Ur Specific [place] 1.022 (1.010-1.025) Urine Protein 30 H (Neg-Trace) mg/dL Urine Glucose (UA) Normal (Normal) mg/dL Urine Ketones Negative (Negative) mg/dL Urine Blood Moderate H (Negative) Urine Nitrite Negative (Negative) Urine Bilirubin Negative (Negative) Urine Urobilinogen Normal (Normal) mg/dL Ur Leukocyte Esterase Large H (Negative) Urine Microscopic RBC 3-5 H (0-3) per hpf Urine Microscopic WBC TNTC H (0-3) per hpf Ur Squamous Epith Cells Few (None-Few) per lpf Urine Bacteria Many H (None-Few) per hpf Hyaline Casts None Seen (None-Few) per lpf Ur Culture Indicated? YES A (NO) 06/10/17 06/10/17 Range/Units 14:13 14:13 WBC (4.3-11.1) K/mcL RBC (3.82-4.97) M/mcL Hgb (11.5-15.4) g/dL Hct (35.3-44.9) % MCV (83.0-100.0) fL MCH (28.0-33.3) pg MCHC (31.6-35.5) g/dL RDW (11.5-14.5) % Plt Count (140-400) K/mcL MPV (9.4-12.4) fL Immature Gran % (0-4) % Seg Neutrophils % % Lymphocytes % % Monocytes % % Eosinophils % % Basophils % % Neutrophils # (1.6-8.9) K/mcL Lymphocytes # (0.6-4.6) K/mcL Monocytes # (0.0-1.3) K/mcL Eosinophils # (0.0-0.6) K/mcL Basophils # (0.0-0.2) K/mcL Sodium (136-145) mEq/L Potassium (3.5-4.5) mEq/L Chloride (98-109) mEq/L Carbon Dioxide (19-29) mEq/L BUN (7-20) mg/dL Creatinine (0.57-1.11) mg/dL Est GFR ( Amer) (> 60) Est GFR (Non-Af Amer) (> 60) BUN/Creatinine Ratio (6-26) Glucose (70-99) mg/dL Calculated Osmolality (280-300) Lactic Acid 1.4 (0.5-2.2) mmol/L Calcium (8.6-10.8) mg/dL Total Bilirubin (0.2-1.2) mg/dL Direct Bilirubin (0.0-0.5) mg/dL Indirect Bilirubin (0.0-1.2) mg/dL AST (5-34) Units/L ALT (0-55) Units/L Alkaline Phosphatase (38-126) Units/L Creatine Kinase (29-168) Units/L Troponin I 0.01 (0-0.03) ng/mL Serum Total Protein (6.0-8.3) g/dL Albumin (3.5-5.0) g/dL Globulin (2.4-3.5) g/dL Albumin/Globulin Ratio (1.1-2.2) Urine Color (Yellow) Urine Clarity (Clear) Urine pH (5.0-8.0) pH Units Ur Specific [place] (1.010-1.025) Urine Protein (Neg-Trace) mg/dL Urine Glucose (UA) (Normal) mg/dL Urine Ketones (Negative) mg/dL Urine Blood (Negative) Urine Nitrite (Negative) Urine Bilirubin (Negative) Urine Urobilinogen (Normal) mg/dL Ur Leukocyte Esterase (Negative) Urine Microscopic RBC (0-3) per hpf Urine Microscopic WBC (0-3) per hpf Ur Squamous Epith Cells (None-Few) per lpf Urine Bacteria (None-Few) per hpf Hyaline Casts (None-Few) per lpf Ur Culture Indicated? (NO) - Radiology Data Radiology results reviewed: Yes I reviewed the patient's radiology results. Cervical Spine CT 06/10/17 12:57 IMPRESSION: No acute abnormality of the cervical spine. D/ / Dandre Solano MD / Dandre Solano MD Interpreting Provider: Dandre Solano MD Chest X-Ray 06/10/17 12:57 IMPRESSION: Borderline cardiomegaly with no other significant finding. D/ / Stefano Plaza MD / Stefano Plaza MD Interpreting Provider: Stefano Plaza MD Head CT 06/10/17 12:57 IMPRESSION: 1. No acute intracranial abnormality. 2. Diffuse cerebral atrophy with chronic small vessel ischemic disease. D/ / Cr Kate MD / Cr Kate MD Interpreting Provider: Cr Kate MD Pelvis X-Ray 06/10/17 12:57 IMPRESSION: Deformity at the right femoral neck. Acute right femoral neck fracture is difficult to exclude. Recommend further evaluation with dedicated right hip x-ray. No acute fracture or dislocation of the pelvis. D/ / Greg Overton MD / Greg Overton MD Interpreting Provider: Greg Overton MD Abdomen/Pelvis CT 06/10/17 15:08 IMPRESSION: No definite pelvic bone fracture or hip fracture identified. MRI for further evaluation with continued clinical concern. Chronic appearing compression fractures of multiple thoracic and lumbar vertebral bodies. Possible rectovaginal fistula. D/ / Nixon Ugarte MD / Nixon Ugarte MD Interpreting Provider: Nixon Ugarte MD Hand X-Ray 06/10/17 15:26 IMPRESSION: 1. Osteopenia without convincing evidence of an acute fracture. 2. Soft tissue swelling along the dorsal aspect of the hand. 3. Extensive degenerative changes. D/ / Jhon Restrepo MD / Jhon Restrepo MD Interpreting Provider: Jhon Restrepo MD - EKG Data EKG #1 EKG attestation: Yes I reviewed and interpreted this EKG. EKG results narrative: EKG was performed 1401 normal sinus rhythm 93 bpm, Q waves in inferior leads, no ST elevations or depression, no T wave inversion, intervals are within normal limits. Compared to old EKG performed 07/31/2016 shows consistent findings of old Q waves in inferior leads. No acute ischemic changes. Attestation Statement - Attestation Attestation: I, Ryley Dong DO, examined this patient [id number] and my medical decision-making was reviewed with Tulio Khan DO , Resident Physician. I agree with the documented findings, disposition and treatment plan as described except to the extent set forth below. Please see my progress notes for details. 76-year-old female presents from home in the care of EMS for evaluation of unknown trauma or injury. Patient was found on her floor this morning for unknown amount of time. On presentation here patient has significant swelling redness and scaling erythematous shoulder right chest wall. Patient denies any trauma. She is alert she answers questions. She does have a history of CVA; cellulitis that is chronic. Patient is concerning for rhabdomyolysis, diabetes , trauma, previous or new stroke, cardiac disease. CT of the head chest x-ray pelvis film as well as labs occurring lactic acid CPK CBC chemistry and urinalysis to this time. Fluids to be given. Concern is noted for patient's medical condition and symptoms. Vital signs are reviewed and otherwise unremarkable except for tachycardia in presentation. No family is with her initially on arrival in the emergency room. We will continue my history versus completed. Lungs are clear abdomen is soft no guarding no rigidity and no visible signs of trauma or edema patient is an infection of this time. She has difficulty physical exam secondary to chronic medical issues as well as her presentation. See detailed documentation of physical exam, clinical O medical decision-making, critical care and disposition resident physician's note 1500 Patient has what appears to be rhabdomyolysis based on elevated CPK. Urinalysis is also concerning for infection. First dose of IV antibiotics given at this time. Fluid hydration to be completed. 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 Patient will most likely admission. Patient said this time. Disposition will most likely be admission. We will continue to monitor. 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 Patient counseled to do surgery and admission process completed. Patient has potentially critically ill based on multifactorial medical issues at this time. Further management treatment course to be completed the hospital. Critical care applied to the patient had the emergency room.
[2017-06-10] MEDS ORDERED: 0.9 % Sodium Chloride 1,000 ML IVC ONE ×2 (13:07→15:06)
[2017-06-10 13:28] LABS: Bilirubin,Urine Negative (Negative); Blood,Urine Moderate (Negative); Clarity,Urine Cloudy (Clear); Color,Urine Yellow (Yellow); Glucose,Urine (UA) Normal (Normal); Ketones,Urine Negative (Negative); Leukocyte Esterase,Urine Large (Negative); Nitrite,Urine Negative (Negative); Protein,Urine 30 mg/dL (Neg-Trace); Specific Gravity,Urine 1.022 (1.010-1.025); Urobilinogen,Urine Normal (Normal)
[2017-06-10 13:30] LABS: Bacteria,Urine Many per hpf (None-Few); Hyaline Casts,Urine None Seen per lpf (None-Few); Squamous Epithelial Cell,Urine Few per lpf (None-Few); WBC,Urine TNTC per hpf (0-3)
[2017-06-10 14:31] LABS: Basophils % 0.2 %; Eosinophils % 0.1 %; Hematocrit 30.8 % (35.3-44.9); Hemoglobin 9.8 g/dL (11.5-15.4); Immature Granulocytes % 0.5 % (0-4); Lymphocytes # 0.7 K/mcL (0.6-4.6); Lymphocytes % 6.2 %; Mean Corpuscular HGB Conc 31.8 g/dL (31.6-35.5); Mean Corpuscular Hemoglobin 27.5 pg (28.0-33.3); Mean Corpuscular Volume 86.5 fL (83.0-100.0); Mean Platelet Volume 9.8 fL (9.4-12.4); Monocytes # 0.7 K/mcL (0.0-1.3); Monocytes % 6.7 %; Neutrophils # 9.5 K/mcL (1.6-8.9); Platelet Count 214 K/mcL (140-400); Red Blood Count 3.56 M/mcL (3.82-4.97); Red Cell Distribution Width 13.1 % (11.5-14.5); Segmented Neutrophils % 86.3 %
[2017-06-10 14:37] LABS: Alanine Aminotransferase 25 Units/L (0-55); Albumin 2.5 g/dL (3.5-5.0); Albumin/Globulin Ratio 0.6 (1.1-2.2); Alkaline Phosphatase 98 Units/L (38-126); Aspartate Amino Transferase 61 Units/L (5-34); BUN/Creatinine Ratio 16 (6-26); Bilirubin,Direct 0.3 mg/dL (0.0-0.5); Bilirubin,Indirect 0.3 mg/dL (0.0-1.2); Bilirubin,Total 0.6 mg/dL (0.2-1.2); Blood Urea Nitrogen 11 mg/dL (7-20); Calcium 7.7 mg/dL (8.6-10.8); Carbon Dioxide 22 mEq/L (19-29); Chloride 106 mEq/L (98-109); Creatine Kinase 3626 Units/L (29-168); Globulin 4.1 g/dL (2.4-3.5); Glucose 105 mg/dL (70-99); Osmolality,Calculated 286 (280-300); Potassium 3.5 mEq/L (3.5-4.5); Sodium 138 mEq/L (136-145); Total Protein 6.6 g/dL (6.0-8.3); eGFR For African Americans > 60 (> 60); eGFR For Non-African Americans > 60 (> 60)
[2017-06-10] MEDS ORDERED: cefTRIAXone 1,000 MG in Water for inj. (sterile) 10 ML IVP ONE (15:05)
--- NOTE | 2017-06-10 17:12 | General Surgery Consult Note ---
Date of Encounter: 06/10/17 Time of Encounter: 16:40 Assessment and Plan (1) Rectovaginal fistula Current Visit: Yes Status: Acute NPO IV fluids Recommend consultation to PAPER GOODS MACHINE SET UP OPERATOR Removal of pessary Supportive care Broad spectrum IV antibiotics No surgery per general surgery at this point (2) Retained vaginal foreign body Current Visit: Yes Status: Chronic Qualifiers: Encounter type: initial encounter Qualified Code(s): T19.2XXA - Foreign body in vulva and vagina, initial encounter (3) Rhabdomyolysis Current Visit: Yes Status: Chronic CK- 3626 Management per hospitalist Qualifiers: Rhabdomyolysis type: non-traumatic Qualified Code(s): M62.82 - Rhabdomyolysis (4) Urinary tract infection Current Visit: Yes Status: Acute Urine culture pending IV antibiotic therapy Management per hospitalist Qualifiers: Urinary tract infection type: site unspecified Hematuria presence: without hematuria Qualified Code(s): N39.0 - Urinary tract infection, site not specified (5) Physical deconditioning Current Visit: Yes Status: Chronic (6) Ulcer of right heel Current Visit: Yes Status: Chronic Followed by Dr. Maldonado in wound care Wound care orders- Betadine paint to the unstageable areas to control the bioburden and cover the area with gauze. Wrap with kerlex gauze. She is to practice aggressive pressure-relief with heel medics boots and aggressive pressure-relief with pillows under the right calf. Qualifiers: Non-pressure ulcer stage: unspecified non-pressure ulcer stage Qualified Code(s): L97.419 - Non-pressure chronic ulcer of right heel and midfoot with unspecified severity History of Present Illness Consult date: 06/10/17 Requesting physician: Tulio Khan History of present illness: Ms. Langston is a 76 year old female with a past medical history significant for hypothyroidism, HTN, DDD, diverticular disease, anemia, dementia and cystocele. She presented to the ED today after falling at home. Her daughter is present with her in the ED and provides much of the history due to the patient being confused at this time. The daughter reports that her mother lives alone and she checked on her last night before bed and she was fine. She states that her mother was on the floor when she went to check on her this morning. She estimates that her mother may have been on the floor for approximately 12 hours. During the patient's work-up she had a CT scan of the abdomen and pelvis which reveals a foreign body as well as a large amount of stool in the vagina. The daughter reports that her mother does have a pessary in place and she is unsure of when it was placed but that it was placed per Dr. Ventura. Records reviewed in [facility] show that the last pessary insertion per Dr. Ventura was complete in January of 2015. The daughter is unsure of why this has not been routinely evaluated in the PAPER GOODS MACHINE SET UP OPERATOR office. She reports that her mother is incontinent of urine and stool. She states that her mother spends most of the day in adult day care where they perform most of her bathing and personal care. She is unsure when her mother began to pass stool from her vaginal area. The patient denies any abdominal pain. She denies any nausea or vomiting. Denies any known changes in bowel habits. Denies any fevers or chills. Denies any shortness of breath of chest pains. We have been asked to see and evaluate the patient for abnormal CT findings consistent with foreign body and rectovaginal fistula. Past Med Surg Social Fam HX - Past Medical History Source: old records reviewed Medical history: dementia, GERD, hypertension, thyroid disease (hypothyroidism) , other (Rheumatic fever as a child, DDD, Diverticular disease, anemia, cystocele, chronic right heel ulcer) Psychiatric history: no psych history - Past Surgical History Surgical History: appendectomy, , cataract (bilateral), cholecystectomy , herniorrhaphy, hysterectomy (GIN/BSO), knee replacement, orthopedic, other ( right TKR, right knee open patellectomy), GIN/BSO, other (T&A as a child) - Social History Smoking Status: Never smoker Smokeless Tobacco Status: No Alcohol use: none Drug use: none Occupational status: disabled Current living situation: Home Activity Level: Wheelchair bound, Mostly sedentary - Family History Daughter Adopted: No Family Member Ethnicity: Non- Living Status: Still Living Medications and Allergies Albuterol Sulfate [Ventolin Hfa] 2 puff IH Q4-6H PRN 06/10/16 [History] Docusate [Colace] 100 mg PO DAILY 06/10/16 [History] Ferrous Sulfate [Iron] 325 mg PO TID 06/10/16 [History] Levothyroxine [Synthroid] 75 mcg PO 0630 06/10/16 [History] Omeprazole [PriLOSEC] 20 mg PO DAILY 06/10/16 [History] Folic Acid 1 mg PO DAILY #90 tablet 06/17/16 [Rx] Ascorbic Acid [Vitamin C] 250 mg PO DAILY 08/18/16 [History] Cyclobenzaprine [Flexeril] 10 mg PO TID PRN 08/18/16 [History] Haloperidol [Haldol] 0.5 mg PO HS 08/18/16 [History] Meloxicam [Mobic] 7.5 mg PO DAILY 08/18/16 [History] Clindamycin [Cleocin] 150 mg PO Q6HR #7 capsule 10/21/16 [Rx] Triamcinolone Acet 0.1% CRM [Kenalog] 1 appl TP BID #1 tube 05/31/17 [Rx] 3 Allergy/AdvReac Type Severity Reaction Status Date / Time Penicillins [PCN] Allergy Unknown Rash Verified 06/10/17 12:59 Review of Systems All systems PM: reviewed and no additional remarkable complaints except as stated (in the HPI) All systems PM: A 10-system review of systems was performed and is negative for pertinent findings except as documented above in the HPI. General Surgery Exam Initial Vital Signs Temp Pulse Resp BP Pulse Ox 97.4 F L 111 16 124/77 98 06/10/17 12:53 06/10/17 12:53 06/10/17 12:53 06/10/17 12:53 06/10/17 12:53 - General physical appearance no distress, no pain, chronically ill - Eyes other (right periorbital edema and erythema noted), PERRL, normal ocular movement - ENT dry mucosa, atraumatic, normocephalic - Neck trachea midline - Respiratory normal respiratory effort, clear to auscultation, other (diminished bibasilar bases) - Cardiovascular Cardiovascular exam: Present: RRR - Abdomen Abdomen general surgery: Present: bowel sounds present, soft, non tender - Genitourinary Present: other (long catheter to SD with clear, yellow urine noted; vaginal vault examined- copious amount of soft stool noted with foreign body noted consistent with pessary) - Integumentary Integumentary general surgery: Present: other (right heel ulcer with dressing intact) - Neurologic Present: confused, other (difficult to assess at this time due to patient not cooperating) - Musculoskeletal Present: other (severe deconditioning) - Psychiatric Psychiatric general surgery: Present: oriented to person, oriented to place Exam Initial Vital Signs Temp Pulse Resp BP Pulse Ox 97.4 F L 111 16 124/77 98 06/10/17 12:53 06/10/17 12:53 06/10/17 12:53 06/10/17 12:53 06/10/17 12:53 Results - Labs 06/10/17 14:13 06/10/17 14:13 Abnormal lab results RBC 3.56 M/mcL (3.82-4.97) L 06/10/17 14:13 Hgb 9.8 g/dL (11.5-15.4) L 06/10/17 14:13 Hct 30.8 % (35.3-44.9) L 06/10/17 14:13 MCH 27.5 pg (28.0-33.3) L 06/10/17 14:13 Neutrophils # 9.5 K/mcL (1.6-8.9) H 06/10/17 14:13 Glucose 105 mg/dL (70-99) H 06/10/17 14:13 Calcium 7.7 mg/dL (8.6-10.8) L 06/10/17 14:13 AST 61 Units/L (5-34) H 06/10/17 14:13 Creatine Kinase 3626 Units/L (29-168) H 06/10/17 14:13 Albumin 2.5 g/dL (3.5-5.0) L 06/10/17 14:13 Globulin 4.1 g/dL (2.4-3.5) H 06/10/17 14:13 Albumin/Globulin Ratio 0.6 (1.1-2.2) L 06/10/17 14:13 Urine Clarity Cloudy (Clear) A 06/10/17 13:18 Urine Protein 30 mg/dL (Neg-Trace) H 06/10/17 13:18 Urine Blood Moderate (Negative) H 06/10/17 13:18 Ur Leukocyte Esterase Large (Negative) H 06/10/17 13:18 Urine Microscopic RBC 3-5 per hpf (0-3) H 06/10/17 13:18 Urine Microscopic WBC TNTC per hpf (0-3) H 06/10/17 13:18 Urine Bacteria Many per hpf (None-Few) H 06/10/17 13:18 Ur Culture Indicated? YES (NO) A 06/10/17 13:18 Diabetes panel 06/10/17 Range/Units 14:13 Sodium 138 (136-145) mEq/L Potassium 3.5 (3.5-4.5) mEq/L Chloride 106 (98-109) mEq/L Carbon Dioxide 22 (19-29) mEq/L BUN 11 (7-20) mg/dL Creatinine 0.67 (0.57-1.11) mg/dL Glucose 105 H (70-99) mg/dL Calcium 7.7 L (8.6-10.8) mg/dL AST 61 H (5-34) Units/L ALT 25 (0-55) Units/L Alkaline Phosphatase 98 (38-126) Units/L Albumin 2.5 L (3.5-5.0) g/dL Calcium panel 06/10/17 Range/Units 14:13 Calcium 7.7 L (8.6-10.8) mg/dL Albumin 2.5 L (3.5-5.0) g/dL Pituitary panel 06/10/17 Range/Units 14:13 Sodium 138 (136-145) mEq/L Potassium 3.5 (3.5-4.5) mEq/L Chloride 106 (98-109) mEq/L Carbon Dioxide 22 (19-29) mEq/L BUN 11 (7-20) mg/dL Creatinine 0.67 (0.57-1.11) mg/dL Glucose 105 H (70-99) mg/dL Calcium 7.7 L (8.6-10.8) mg/dL Adrenal panel 06/10/17 Range/Units 14:13 Sodium 138 (136-145) mEq/L Potassium 3.5 (3.5-4.5) mEq/L Chloride 106 (98-109) mEq/L Carbon Dioxide 22 (19-29) mEq/L BUN 11 (7-20) mg/dL Creatinine 0.67 (0.57-1.11) mg/dL Glucose 105 H (70-99) mg/dL Calcium 7.7 L (8.6-10.8) mg/dL Total Bilirubin 0.6 (0.2-1.2) mg/dL AST 61 H (5-34) Units/L ALT 25 (0-55) Units/L Alkaline Phosphatase 98 (38-126) Units/L Albumin 2.5 L (3.5-5.0) g/dL All other labs normal. - Imaging CT scan - abdomen: report reviewed CT scan - pelvis: report reviewed Additional studies: Cervical Spine CT 06/10/17 12:57 IMPRESSION: No acute abnormality of the cervical spine. D/ / Dandre Solano MD / Dandre Solano MD Interpreting Provider: Dandre Solano MD Chest X-Ray 06/10/17 12:57 IMPRESSION: Borderline cardiomegaly with no other significant finding. D/ / Stefano Plaza MD / Stefano Plaza MD Interpreting Provider: Stefano Plaza MD Head CT 06/10/17 12:57 IMPRESSION: 1. No acute intracranial abnormality. 2. Diffuse cerebral atrophy with chronic small vessel ischemic disease. D/ / Cr Kate MD / Cr Kate MD Interpreting Provider: Cr Kate MD Pelvis X-Ray 06/10/17 12:57 IMPRESSION: Deformity at the right femoral neck. Acute right femoral neck fracture is difficult to exclude. Recommend further evaluation with dedicated right hip x-ray. No acute fracture or dislocation of the pelvis. D/ / Greg Overton MD / Greg Overton MD Interpreting Provider: Greg Overton MD Abdomen/Pelvis CT 06/10/17 15:08 IMPRESSION: No definite pelvic bone fracture or hip fracture identified. MRI for further evaluation with continued clinical concern. Chronic appearing compression fractures of multiple thoracic and lumbar vertebral bodies. Possible rectovaginal fistula. D/ / Nixon Ugarte MD / Nixon Ugarte MD Interpreting Provider: Nixon Ugarte MD Hand X-Ray 06/10/17 15:26 IMPRESSION: 1. Osteopenia without convincing evidence of an acute fracture. 2. Soft tissue swelling along the dorsal aspect of the hand. 3. Extensive degenerative changes. D/ / Jhon Restrepo MD / Jhon Restrepo MD Interpreting Provider: Jhon Restrepo MD Consult Discharge Plan - Plan Referrals: Sharonda Bender CAREER RESOURCE SPECIALIST [Primary Care Provider] - - Attending Attestation For this encounter, I have reviewed the CLAIMS ADMINISTRATOR or PA documentation, treatment plan, and medical decision making; and I have had face to face time with this patient.
[2017-06-10] MEDS: 0.9 % Sodium Chloride 1,000 ML IVC SCH ×2 (21:55→22:30)
[2017-06-11] MEDS ORDERED: Acetaminophen 325 MG TABLET PO PRN (01:43)
[2017-06-11] MEDS ORDERED: Naloxone 0.4 MG/ML INJ IVP PRN (01:57)
[2017-06-11] MEDS ORDERED: *HR* Morphine 2 MG/ML SYRINGE IVP PRN (01:57)
[2017-06-11] MEDS ORDERED: Ringers Solution, Lactated 1,000 ML IVC SCH (02:00)
--- NOTE | 2017-06-11 02:08 | Internal Med History&Physical ---
Date of Encounter: 06/10/17 Time of Encounter: 21:00 Assessment and Plan (1) Urinary tract infection Current visit: Yes Status: Acute Likely that UTI lead to fall treat UTI with IV cipro cx pend likely complicated due to rectovaginal fistula Qualifiers: Urinary tract infection type: site unspecified Hematuria presence: without hematuria Qualified Code(s): N39.0 - Urinary tract infection, site not specified (2) Rectovaginal fistula Current visit: Yes Status: Acute consult surgery, GRAPHIC COORDINATOR for management risk factor for UTI (3) Fall Current visit: Yes Status: Acute initial trauma screen negative. will monitor her course and consider further imaging as necessary based on further symptoms as needed Qualifiers: Encounter type: initial encounter Qualified Code(s): W19.XXXA - Unspecified fall, initial encounter (4) Rhabdomyolysis Current visit: Yes Status: Chronic very mild. IVF. trend CPK Qualifiers: Rhabdomyolysis type: non-traumatic Qualified Code(s): M62.82 - Rhabdomyolysis (5) Dementia Current visit: Yes Status: Acute baseline dementia hx of delirium per dtr dtr strongly wishes for her to get 1mg haldol BID Qualifiers: Alzheimer's disease onset: late-onset Qualified Code(s): G30.1 - Alzheimer' s disease with late onset; F02.81 - Dementia in other diseases classified elsewhere with behavioral disturbance; F02.81 - Dementia in other diseases classified elsewhere with behavioral disturbance; F02.81 - Dementia in other diseases classified elsewhere with behavioral disturbance Internal Medicine - H&P: HPI Chief complaint: Fall History of present illness: patient seen 9 pm on 06/10/17 Ms. Langston is a 76 year old female who presents with a fall. Found to have rectovaginal fistula c/b UTI and mild rhabdo. She lives at home by herself and has moderate dementia.Yesterday , she fell on her right hip after dtr checked on her. Dtr found her laying on the floor - estimated for > 12 hours. There is some concerns for right femoral neck fracture but CT A/P was negative. FINDINGS: The osseous structures appear osteopenic. There is no convincing evidence of an acute fracture the right hand. There is severe arthrosis of the interphalangeal joints. Severe arthrosis is also seen of the 1st CMC and triscaphe joints. Moderate arthrosis of the 1st and 2nd MCP joints. Arthrosis is also seen of the radiocarpal joint. There is soft tissue swelling along the dorsal aspect of the hand. XR/XR hand 3V RT IMPRESSION: 1. Osteopenia without convincing evidence of an acute fracture. 2. Soft tissue swelling along the dorsal aspect of the hand. 3. Extensive degenerative changes. ADDENDUM: Case discussed with Dr. Dong at 4:04 p.m. on 06/10/2017. The density within the vaginal vault could also potentially represent a pessary. However, the fecalized material within the vagina is unexplained and still raises the possibility of rectovaginal fistula. D/ / Nixon Ugarte MD / Nixon Ugarte MD Interpreting Provider: Nixon Ugarte MD R #: [id number] CT/CT abd pelvis wo no iv no oral IMPRESSION: No definite pelvic bone fracture or hip fracture identified. MRI for further evaluation with continued clinical concern. Chronic appearing compression fractures of multiple thoracic and lumbar vertebral bodies. Possible rectovaginal fistula. XR/XR pelvis AP view IMPRESSION: Deformity at the right femoral neck. Acute right femoral neck fracture is difficult to exclude. Recommend further evaluation with dedicated right hip x-ray. No acute fracture or dislocation of the pelvis. XR/XR chest 1V portable IMPRESSION: Borderline cardiomegaly with no other significant finding. CT/CT cervical spine wo con IMPRESSION: No acute abnormality of the cervical spine. Past Med Surg Social Fam HX - Past Medical History Medical history: dementia, GERD, hypertension, thyroid disease (hypothyroidism) , other (Rheumatic fever as a child, DDD, Diverticular disease, anemia, cystocele, chronic right heel ulcer) Psychiatric history: no psych history - Past Surgical History Surgical History: appendectomy, , cataract (bilateral), cholecystectomy , herniorrhaphy, hysterectomy (GIN/BSO), knee replacement, orthopedic, other ( right TKR, right knee open patellectomy), GIN/BSO, other (T&A as a child) - Social History Smoking Status: Never smoker Smokeless Tobacco Status: No Alcohol use: none Drug use: none - Family History Daughter Adopted: No Family Member Ethnicity: Non- Living Status: Still Living Internal Medicine - H&P: Meds Albuterol Sulfate [Ventolin Hfa] 2 puff IH Q4-6H PRN 06/10/16 [History] Docusate [Colace] 100 mg PO DAILY 06/10/16 [History] Ferrous Sulfate [Iron] 325 mg PO TID 06/10/16 [History] Levothyroxine [Synthroid] 75 mcg PO 0630 06/10/16 [History] Omeprazole [PriLOSEC] 20 mg PO DAILY 06/10/16 [History] Folic Acid 1 mg PO DAILY #90 tablet 06/17/16 [Rx] Ascorbic Acid [Vitamin C] 250 mg PO DAILY 08/18/16 [History] Cyclobenzaprine [Flexeril] 10 mg PO TID PRN 08/18/16 [History] Haloperidol [Haldol] 0.5 mg PO HS 08/18/16 [History] Meloxicam [Mobic] 7.5 mg PO DAILY 08/18/16 [History] Clindamycin [Cleocin] 150 mg PO Q6HR #7 capsule 10/21/16 [Rx] Triamcinolone Acet 0.1% CRM [Kenalog] 1 appl TP BID #1 tube 05/31/17 [Rx] 3 Allergy/AdvReac Type Severity Reaction Status Date / Time Penicillins [PCN] Allergy Unknown Rash Verified 06/10/17 12:59 All Systems PM: A 10-system review of systems was performed and is negative for pertinent findings except as documented above in the HPI. Review of systems: ROS 14 point review of systems reviewed as best as possible given presentation. Pertinent positive or negative as per HPI or otherwise reviewed as negative - Constitutional Vitals: Temp Pulse Resp BP Pulse Ox 100.1 F H 97 18 102/61 94 06/11/17 01:06 06/11/17 01:06 06/11/17 01:06 06/11/17 01:06 06/11/17 01:06 Exam: General - Confused Psych - Appropriate affect/speech but confused. No agitation Eyes - JENNIFER. Eye lids intact. No scleral icterus Neuro - No gross peripheral or central neuro deficits on inspection. Moving all extremities Heart - Sinus. RRR. S1 and S2 present. No added HS/murmurs appreciated. No elevated JVD appreciated. Lung - Adequate air entry b/l, bibasal crackles GI - Soft, non-tender. No hepatosplenomegaly/ascites. BS+ - No CVA/suprapubic tenderness or palpable bladder distension Skin - Intact. No rash/petechiae/ecchymosis. Warm extremities Internal Med - H&P Results - Labs CBC & Chem 7: 06/10/17 14:13 06/10/17 14:13
[2017-06-11 03:48] LABS: Basophils % 0.2 %; Eosinophils # 0.1 K/mcL (0.0-0.6); Eosinophils % 0.5 %; Hemoglobin 11.5 g/dL (11.5-15.4); Immature Granulocytes % 0.4 % (0-4); Immature Platelets 2.9 % (1.1-6.1); Lymphocytes # 1.1 K/mcL (0.6-4.6); Lymphocytes % 10.9 %; Mean Corpuscular HGB Conc 32.9 g/dL (31.6-35.5); Mean Corpuscular Hemoglobin 28.3 pg (28.0-33.3); Mean Platelet Volume 9.6 fL (9.4-12.4); Monocytes # 0.8 K/mcL (0.0-1.3); Monocytes % 8.1 %; Neutrophils # 8.1 K/mcL (1.6-8.9); Platelet Count 229 K/mcL (140-400); Red Blood Count 4.07 M/mcL (3.82-4.97); Red Cell Distribution Width 13.1 % (11.5-14.5); Segmented Neutrophils % 79.9 %
[2017-06-11 04:08] LABS: BUN/Creatinine Ratio 13 (6-26); Blood Urea Nitrogen 9 mg/dL (7-20); Calcium 8.2 mg/dL (8.6-10.8); Carbon Dioxide 20 mEq/L (19-29); Chloride 107 mEq/L (98-109); Glucose 104 mg/dL (70-99); Magnesium 1.2 mg/dL (1.6-2.6); Osmolality,Calculated 283 (280-300); Potassium 3.4 mEq/L (3.5-4.5); Sodium 137 mEq/L (136-145); eGFR For African Americans > 60 (> 60); eGFR For Non-African Americans > 60 (> 60)
[2017-06-11] MEDS ORDERED: *HR* Enoxaparin 30 MG/0.3 ML SYRINGE SQ SCH (06:00)
[2017-06-11] MEDS: 0.9 % Sodium Chloride 1,000 ML IVC SCH ×2 (06:00→08:28)
[2017-06-11] MEDS: Ascorbic Acid 500 MG TABLET PO SCH (07:41)
[2017-06-11] MEDS ORDERED: Potassium Chloride Elixir 20 MEQ/15 ML UDC PO ONE (07:42)
[2017-06-11] MEDS ORDERED: Triamcinolone Acet 0.1% CRM 80 GM Tube TP SCH (09:00)
--- NOTE | 2017-06-11 09:22 | Internal Med Progress Note ---
Date of Encounter: 06/11/17 Time of Encounter: 08:35 - Assessment and plan (1) Urinary tract infection Current Visit: Yes Status: Acute Assessment and plan: UA suggestive of infection, preliminary urine culture shows gram negative rods; received a dose of IV Rocephin in the ER; continue IV Ciprofloxacin and f/up final results; Qualifiers: Urinary tract infection type: site unspecified Hematuria presence: without hematuria Qualified Code(s): N39.0 - Urinary tract infection, site not specified (2) Rectovaginal fistula Current Visit: Yes Status: Acute Assessment and plan: incidental finding on CT abdomen/pelvis; Surgery consult noted- recommended no surgical intervention, RADIO ENGINEER consult, pessary removal. RADIO ENGINEER consulted, will f/up. (3) Rhabdomyolysis Current Visit: Yes Status: Chronic Assessment and plan: due to fall; initial CK in 3000s; continue IV hydration; trend CK and monitor serum creatinine; Qualifiers: Rhabdomyolysis type: non-traumatic Qualified Code(s): M62.82 - Rhabdomyolysis (4) Fall Current Visit: Yes Status: Acute Assessment and plan: poor historian; probably fell secondary to UTI and weakness; improving; fall precautions; Qualifiers: Encounter type: initial encounter Qualified Code(s): W19.XXXA - Unspecified fall, initial encounter (5) Hypothyroidism Current Visit: Yes Status: Chronic Assessment and plan: continue Levothyroxine; Qualifiers: Hypothyroidism type: unspecified Qualified Code(s): E03.9 - Hypothyroidism , unspecified (6) Hypertension Current Visit: Yes Status: Chronic Qualifiers: Hypertension type: unspecified secondary hypertension Qualified Code(s): I15.9 - Secondary hypertension, unspecified; I15 - Secondary hypertension (7) Dementia Current Visit: Yes Status: Chronic Assessment and plan: supportive care; Qualifiers: Dementia type: Alzheimer's disease Alzheimer's disease onset: late-onset Dementia behavioral disturbance: without behavioral disturbance Qualified Code (s): G30.1 - Alzheimer's disease with late onset; F02.80 - Dementia in other diseases classified elsewhere without behavioral disturbance; F02.80 - Dementia in other diseases classified elsewhere without behavioral disturbance; F02.80 - Dementia in other diseases classified elsewhere without behavioral disturbance - Subjective Interval history: Unable to provide any history due to dementia; history obtained from review of ER records; denies pain; eating breakfast; - Constitutional Vitals: Temp Pulse Resp BP Pulse Ox 98.2 F 79 15 99/66 96 06/11/17 08:41 06/11/17 08:41 06/11/17 08:41 06/11/17 08:41 06/11/17 08:50 General appearance: Present: A&O X 1. Absent: answers questions appropriately - Respiratory Respiratory exam: Present: CTAB. Absent: accessory muscle use, rales, rhonchi, wheezes - Cardiovascular Cardiovascular exam: Present: RRR, +S1, +S2. Absent: diastolic murmur, gallop, rubs, systolic murmur - GI/Abdominal GI/Abdominal exam: Present: normal bowel sounds, soft, no peritoneal signs. Absent: distended, tenderness - Extremities Exam Extremities exam: Present: pedal edema, warm, radial pulses palpable and symmetrical. Absent: calf tenderness, cyanotic Internal Medicine: Result - Labs CBC & Chem 7: 06/11/17 03:40 06/11/17 03:40 Labs: Short CBC 06/11/17 Range/Units 03:40 WBC 10.1 (4.3-11.1) K/mcL Hgb 11.5 D (11.5-15.4) g/dL Hct 35.0 L (35.3-44.9) % Plt Count 229 (140-400) K/mcL Neutrophils # 8.1 (1.6-8.9) K/mcL BMP 06/11/17 03:40 Sodium 137 Potassium 3.4 L Chloride 107 Carbon Dioxide 20 BUN 9 Creatinine 0.69 Glucose 104 H Calcium 8.2 L Consult Discharge Plan - Plan Referrals: Sharonda Bender, ERVIN [Primary Care Provider] -
--- NOTE | 2017-06-11 10:55 | General Surgery Progress Note ---
Date of Encounter: 06/11/17 Time of Encounter: 10:20 - Assessment and Plan (1) Rectovaginal fistula Current Visit: Yes Status: Acute (2) DVT prophylaxis Current Visit: No Status: Acute (3) Urinary tract infection Current Visit: Yes Status: Acute Qualifiers: Urinary tract infection type: site unspecified Hematuria presence: without hematuria Qualified Code(s): N39.0 - Urinary tract infection, site not specified (4) Retained vaginal foreign body Current Visit: Yes Status: Chronic Qualifiers: Encounter type: initial encounter Qualified Code(s): T19.2XXA - Foreign body in vulva and vagina, initial encounter Subjective Patient reports: no new complaints, feels better Narrative: Patient was seen and examined this morning. She states that she is feeling better from yesterday. Continues to be alert and oriented 2. She has no complaints at this time and denies any symptoms of fevers, chills. Objective Vital Signs - Last 8 Hours Temp Pulse Resp BP Pulse Ox 06/11/17 08:50 96 06/11/17 08:41 98.2 F 79 15 99/66 96 06/11/17 03:43 98.2 F 74 18 102/64 93 Intake and Output 06/10/17 06/11/17 06/11/17 23:59 07:59 15:59 Intake Total 1200 / 1200 730 / 730 Output Total 175 / 175 100 / 100 Balance 1025 / 1025 630 / 630 Intake: IV Fluids 1200 / 1200 250 / 250 0.9 % Sodium Chloride 1,000 ML 1000 / 1000 @ 125 mls/hr IVC .Q8H B[facility]KY Rx#: [id number] Lactated Ringers 1,000 ML @ 100 200 / 200 mls/hr IVC .Q10H BECKY Rx#: [id number] Cipro Premix 400 MG/200 ML 400 200 / 200 mg In 200 ml @ 200 mls/hr IVPB Q12HR B[facility]KY Rx#:[id number] Magnesium Sulfate Premix 2gm/ 50 / 50 50mL 2 gm In 50 ml @ 48.077 mls /hr IVPB ONCE ONE Rx#: [id number] Oral 0 / 0 480 / 480 Output: Catheter 175 / 175 100 / 100 Other: Meal Breakfast Percent of Meal Consumed 25% Stool Size Moderate Stool Consistency loose Stool Color Black # Bowel Movements 1 Blood Glucose* 98 - General physical appearance well developed, well nourished, no distress - Respiratory normal expansion, normal respiratory effort, clear to auscultation - Cardiovascular Cardiovascular exam: Present: RRR, no murmurs/rubs/gallops - Abdomen Abdomen: Present: bowel sounds present, soft, non tender - Labs 06/11/17 03:40 06/11/17 03:40 Diabetes panel 06/11/17 Range/Units 03:40 Sodium 137 (136-145) mEq/L Potassium 3.4 L (3.5-4.5) mEq/L Chloride 107 (98-109) mEq/L Carbon Dioxide 20 (19-29) mEq/L BUN 9 (7-20) mg/dL Creatinine 0.69 (0.57-1.11) mg/dL Glucose 104 H (70-99) mg/dL Calcium 8.2 L (8.6-10.8) mg/dL Calcium panel 06/11/17 Range/Units 03:40 Calcium 8.2 L (8.6-10.8) mg/dL Pituitary panel 06/11/17 Range/Units 03:40 Sodium 137 (136-145) mEq/L Potassium 3.4 L (3.5-4.5) mEq/L Chloride 107 (98-109) mEq/L Carbon Dioxide 20 (19-29) mEq/L BUN 9 (7-20) mg/dL Creatinine 0.69 (0.57-1.11) mg/dL Glucose 104 H (70-99) mg/dL Calcium 8.2 L (8.6-10.8) mg/dL Adrenal panel 06/11/17 Range/Units 03:40 Sodium 137 (136-145) mEq/L Potassium 3.4 L (3.5-4.5) mEq/L Chloride 107 (98-109) mEq/L Carbon Dioxide 20 (19-29) mEq/L BUN 9 (7-20) mg/dL Creatinine 0.69 (0.57-1.11) mg/dL Glucose 104 H (70-99) mg/dL Calcium 8.2 L (8.6-10.8) mg/dL Consult Discharge Plan - Plan Referrals: Sharonda Bender, ERVIN [Primary Care Provider] -
--- NOTE | 2017-06-11 11:06 | OB/GYN Consult Note ---
Date of Encounter: 06/11/17 Time of Encounter: 11:05 Assessment and Plan (1) Rectovaginal fistula Current Visit: Yes Status: Acute As per consultation with Dr Soto, we recommend that the patient be seen by a surgeon. Her recto-vaginal fistula is not a Gynecological issue. It is inappropriate at this time to remove her pessary due to patient confusion and no family member present. We recommend that the pessary be removed by the surgeon who is to see her for surgery if she is an appropriate candidate. Thank you for the consultation. At this time we will be signing off of Mrs Donald's care. (2) Dementia Current Visit: Yes Status: Acute Qualifiers: Alzheimer's disease onset: late-onset Qualified Code(s): G30.1 - Alzheimer' s disease with late onset; F02.81 - Dementia in other diseases classified elsewhere with behavioral disturbance; F02.81 - Dementia in other diseases classified elsewhere with behavioral disturbance; F02.81 - Dementia in other diseases classified elsewhere with behavioral disturbance History of Present Illness Consult date: 06/11/17 Requesting physician: Iesha Almazan Reason for consult: other (Recto-Vaginal Fistula) Chief complaint: Found on floor at home, confusion History of present illness: Ms. Langston is a 76 year old female with a past medical history significant for hypothyroidism, HTN, DDD, diverticular disease, anemia, dementia and cystocele. She presented to the ED yesterday after falling at home. No family was present in her room upon exam and the patient is unable to give any history due to confusion. Per her record, her daughter "reports that her mother lives alone and she checked on her last night before bed and she was fine. She states that her mother was on the floor when she went to check on her this morning. She estimates that her mother may have been on the floor for approximately 12 hours. During the patient's work-up she had a CT scan of the abdomen and pelvis which reveals a foreign body as well as a large amount of stool in the vagina. The daughter reports that her mother does have a pessary in place and she is unsure of when it was placed but that it was placed per Dr. Ventura. Records reviewed in [facility] show that the last pessary insertion per Dr. Ventura was complete in January of 2015. The daughter is unsure of why this has not been routinely evaluated in the GLUE SIZE MACHINE OPERATOR office. She reports that her mother is incontinent of urine and stool. She states that her mother spends most of the day in adult day care where they perform most of her bathing and personal care. She is unsure when her mother began to pass stool from her vaginal area." Upon exam today, Mrs Langston denies any abdominal/vaginal/rectal pain, nausea and vomiting, and changes in bowel habits. She also denies shortness of breath or chest pain. She is confused today and although she is able to tell me her name and where she is, she is unable to tell me who the president is and the year. She also falls asleep between words when speaking with me. The ELECTRICIAN STATION ASSISTANT service has been asked to evaluate her recto-vaginal fistula and foreign body. Past Med Surg Social Fam HX - Past Medical History Medical history: dementia, GERD, hypertension, thyroid disease (hypothyroidism) , other (Rheumatic fever as a child, DDD, Diverticular disease, anemia, cystocele, chronic right heel ulcer) Psychiatric history: no psych history - Past Surgical History Surgical History: appendectomy, , cataract (bilateral), cholecystectomy , herniorrhaphy, hysterectomy (GIN/BSO), knee replacement, orthopedic, other ( right TKR, right knee open patellectomy), GIN/BSO, other (T&A as a child) - Social History Smoking Status: Never smoker Smokeless Tobacco Status: No Alcohol use: none Drug use: none - Family History Daughter Adopted: No Family Member Ethnicity: Non- Living Status: Still Living Medications and Allergies Albuterol Sulfate [Ventolin Hfa] 2 puff IH Q4-6H PRN 06/10/16 [History] Docusate [Colace] 100 mg PO DAILY 06/10/16 [History] Ferrous Sulfate [Iron] 325 mg PO TID 06/10/16 [History] Levothyroxine [Synthroid] 75 mcg PO 0630 06/10/16 [History] Omeprazole [PriLOSEC] 20 mg PO DAILY 06/10/16 [History] Folic Acid 1 mg PO DAILY #90 tablet 06/17/16 [Rx] Ascorbic Acid [Vitamin C] 250 mg PO DAILY 08/18/16 [History] Cyclobenzaprine [Flexeril] 10 mg PO TID PRN 08/18/16 [History] Haloperidol [Haldol] 0.5 mg PO HS 08/18/16 [History] Meloxicam [Mobic] 7.5 mg PO DAILY 08/18/16 [History] Clindamycin [Cleocin] 150 mg PO Q6HR #7 capsule 10/21/16 [Rx] Triamcinolone Acet 0.1% CRM [Kenalog] 1 appl TP BID #1 tube 05/31/17 [Rx] 3 Allergy/AdvReac Type Severity Reaction Status Date / Time Penicillins [PCN] Allergy Unknown Rash Verified 06/10/17 12:59 Review of Systems ROS unobtainable: due to mental status (Patient is alert to name and place, but is unable to tell me the year, president, and why she is hospitalized. ) Constitutional: as per HPI Exam - Vital Signs Vital signs: Initial Vital Signs Temp Pulse Resp BP Pulse Ox 97.4 F L 111 16 124/77 98 06/10/17 12:53 06/10/17 12:53 06/10/17 12:53 06/10/17 12:53 06/10/17 12:53 - Constitutional Constitutional: no acute distress, thin - HEENT HEENT: Normocephaly, Mucus Membranes Moist - Lungs Respiratory exam: CTAB - Cardiovascular Cardiovascular exam: RRR, +S1, +S2 - Abdomen Abdomen: Present: bowel sounds normal, non tender - Extremities Extremities exam: normal capillary refill, normal inspection, radial pulses palpable and symmetrical Results Result Diagrams: 06/11/17 03:40 06/11/17 03:40 Abnormal lab results Hct 35.0 % (35.3-44.9) L 06/11/17 03:40 Potassium 3.4 mEq/L (3.5-4.5) L 06/11/17 03:40 Glucose 104 mg/dL (70-99) H 06/11/17 03:40 POC Glucose 98 (58-89) H 06/11/17 08:38 Calcium 8.2 mg/dL (8.6-10.8) L 06/11/17 03:40 Magnesium 1.2 mg/dL (1.6-2.6) L 06/11/17 03:40 AST 61 Units/L (5-34) H 06/10/17 14:13 Creatine Kinase 3626 Units/L (29-168) H 06/10/17 14:13 Albumin 2.5 g/dL (3.5-5.0) L 06/10/17 14:13 Globulin 4.1 g/dL (2.4-3.5) H 06/10/17 14:13 Albumin/Globulin Ratio 0.6 (1.1-2.2) L 06/10/17 14:13 Urine Clarity Cloudy (Clear) A 06/10/17 13:18 Urine Protein 30 mg/dL (Neg-Trace) H 06/10/17 13:18 Urine Blood Moderate (Negative) H 06/10/17 13:18 Ur Leukocyte Esterase Large (Negative) H 06/10/17 13:18 Urine Microscopic RBC 3-5 per hpf (0-3) H 06/10/17 13:18 Urine Microscopic WBC TNTC per hpf (0-3) H 06/10/17 13:18 Urine Bacteria Many per hpf (None-Few) H 06/10/17 13:18 Ur Culture Indicated? YES (NO) A 06/10/17 13:18 All other labs normal. Consult Discharge Plan - Plan Referrals: Sharonda Bender, EDUCATIONAL/DEVELOPMENT ASSISTANT [Primary Care Provider] -
--- NOTE | 2017-06-11 14:42 | General Surgery Progress Note ---
Date of Encounter: 06/11/17 Time of Encounter: 14:38 - Assessment and Plan (1) Rectovaginal fistula Current Visit: Yes Status: Acute This patient has a questionable history of a past [address] Ventura. I have reviewed the CTs personally. There appears to be a foreign object within the vagina. We have asked [employer] OFFICER to evaluate her for a pelvic exam to remove the pessary if possible. However this is been unsuccessful thus far. I have a call out for Dr. Soto and I am awaiting his response. Subjective Patient reports: other (The patient is unable to produce any significant history. When she was admitted the majority of the history was taken from her daughter. She states she does not feel much different than yesterday.) Objective Vital Signs - Last 8 Hours Temp Pulse Resp BP Pulse Ox 06/11/17 14:32 98.9 F 72 15 105/70 95 06/11/17 11:15 97.9 F 78 15 96/65 98 06/11/17 08:50 96 06/11/17 08:41 98.2 F 79 15 99/66 96 Intake and Output 06/10/17 06/11/17 06/11/17 23:59 07:59 15:59 Intake Total 1200 / 1200 1149 / 1149 Output Total 175 / 175 500 / 500 Balance 1025 / 1025 649 / 649 Intake: IV Fluids 1200 / 1200 429 / 429 0.9 % Sodium Chloride 1,000 ML 1000 / 1000 179 / 179 @ 60 mls/hr IVC .[id number] B[facility]KY Rx #:[id number] Lactated Ringers 1,000 ML @ 100 200 / 200 mls/hr IVC .Q10H BECKY Rx#: [id number] Cipro Premix 400 MG/200 ML 400 200 / 200 mg In 200 ml @ 200 mls/hr IVPB Q12HR BECKY Rx#:[id number] Magnesium Sulfate Premix 2gm/ 50 / 50 50mL 2 gm In 50 ml @ 48.077 mls /hr IVPB ONCE ONE Rx#: [id number] Oral 0 / 0 720 / 720 Output: Catheter 175 / 175 500 / 500 Other: Meal Lunch Percent of Meal Consumed 5% Stool Size Moderate Large Stool Consistency loose liquid Stool Color Black Black # Bowel Movements 1 # Bowel Movement Diapers 1 Blood Glucose* 97 - General physical appearance well nourished, no distress - Respiratory normal respiratory effort - Cardiovascular Cardiovascular exam: Present: RRR - Abdomen Abdomen: Present: bowel sounds present, soft, non tender - Labs 06/11/17 03:40 06/11/17 03:40 Diabetes panel 06/11/17 Range/Units 03:40 Sodium 137 (136-145) mEq/L Potassium 3.4 L (3.5-4.5) mEq/L Chloride 107 (98-109) mEq/L Carbon Dioxide 20 (19-29) mEq/L BUN 9 (7-20) mg/dL Creatinine 0.69 (0.57-1.11) mg/dL Glucose 104 H (70-99) mg/dL Calcium 8.2 L (8.6-10.8) mg/dL Calcium panel 06/11/17 Range/Units 03:40 Calcium 8.2 L (8.6-10.8) mg/dL Pituitary panel 06/11/17 Range/Units 03:40 Sodium 137 (136-145) mEq/L Potassium 3.4 L (3.5-4.5) mEq/L Chloride 107 (98-109) mEq/L Carbon Dioxide 20 (19-29) mEq/L BUN 9 (7-20) mg/dL Creatinine 0.69 (0.57-1.11) mg/dL Glucose 104 H (70-99) mg/dL Calcium 8.2 L (8.6-10.8) mg/dL Adrenal panel 06/11/17 Range/Units 03:40 Sodium 137 (136-145) mEq/L Potassium 3.4 L (3.5-4.5) mEq/L Chloride 107 (98-109) mEq/L Carbon Dioxide 20 (19-29) mEq/L BUN 9 (7-20) mg/dL Creatinine 0.69 (0.57-1.11) mg/dL Glucose 104 H (70-99) mg/dL Calcium 8.2 L (8.6-10.8) mg/dL - Imaging CT scan - abdomen: image reviewed CT scan - pelvis: image reviewed Consult Discharge Plan - Plan Referrals: Sharonda Bender, SHOWROOM SALES CONSULTANT [Primary Care Provider] -
--- NOTE | 2017-06-11 17:07 | OB/GYN Procedure Note ---
OB-DRAFTING CLERK: Procedure - Diagnosis Date of procedure: 06/11/17 Pre-op diagnosis: Rectovaginal fistula with retained pessary Post-op diagnosis: same - Procedure Procedure: Removal of retained pessary Surgeon: Desmond Soto Anesthesia Type: None Estimated blood loss (cc): 0 Procedure Complications: None Specimens collected: None Disposition: floor Findings: Large amount of fecal material was noted in the vagina. The pessary was noted to be at the top of the vagina. Narrative: Patient was taken to the triage area. She was placed in dorsolithotomy position. Speculum exam revealed the pessary to be at the top of the vagina. Using ring forceps and with manual extraction the pessary was removed. Patient tolerated the procedure well. Dr. Morris was advised regarding the removal
[2017-06-11] MEDS: Triamcinolone Acet 0.1% CRM 15 GM TUBE TP SCH (22:09)
[2017-06-12 04:55] LABS: Basophils % 0.4 %; Eosinophils # 0.2 K/mcL (0.0-0.6); Eosinophils % 2.2 %; Hematocrit 35.8 % (35.3-44.9); Hemoglobin 11.2 g/dL (11.5-15.4); Immature Granulocytes % 0.4 % (0-4); Lymphocytes # 1.2 K/mcL (0.6-4.6); Mean Corpuscular HGB Conc 31.3 g/dL (31.6-35.5); Mean Corpuscular Hemoglobin 27.7 pg (28.0-33.3); Mean Corpuscular Volume 88.4 fL (83.0-100.0); Monocytes # 0.8 K/mcL (0.0-1.3); Monocytes % 7.5 %; Neutrophils # 8.4 K/mcL (1.6-8.9); Nucleated Red Blood Cells 0.2 /100 WBC (0); Platelet Count 235 K/mcL (140-400); Red Blood Count 4.05 M/mcL (3.82-4.97); Red Cell Distribution Width 13.3 % (11.5-14.5); Segmented Neutrophils % 78.5 %
[2017-06-12 05:04] LABS: BUN/Creatinine Ratio 12 (6-26); Blood Urea Nitrogen 8 mg/dL (7-20); Calcium 8.6 mg/dL (8.6-10.8); Carbon Dioxide 20 mEq/L (19-29); Chloride 105 mEq/L (98-109); Glucose 98 mg/dL (70-99); Magnesium 1.6 mg/dL (1.6-2.6); Osmolality,Calculated 278 (280-300); Potassium 3.7 mEq/L (3.5-4.5); Sodium 135 mEq/L (136-145); eGFR For African Americans > 60 (> 60); eGFR For Non-African Americans > 60 (> 60)
[2017-06-12] MEDS: *HR* Enoxaparin 40 MG/0.4 ML SYRINGE SQ SCH (06:56)
--- NOTE | 2017-06-12 08:48 | Internal Med Progress Note ---
Date of Encounter: 06/12/17 Time of Encounter: 08:46 - Assessment and plan (1) Urinary tract infection Current Visit: Yes Status: Acute Assessment and plan: UA suggestive of infection, urine culture grows pansensitive; received a dose of IV Rocephin in the ER; continue IV Ciprofloxacin- day 2; Qualifiers: Urinary tract infection type: site unspecified Hematuria presence: without hematuria Qualified Code(s): N39.0 - Urinary tract infection, site not specified (2) Rectovaginal fistula Current Visit: Yes Status: Acute Assessment and plan: incidental finding on CT abdomen/pelvis; Surgery consult noted- recommended no surgical intervention; CERTIFIED ATHLETIC TRAINER consult noted, s/p pessary removal on 06/11/17. (3) Rhabdomyolysis Current Visit: Yes Status: Chronic Assessment and plan: due to fall; initial CK in 3000s; improving currently; continue IV hydration; trend CK and monitor serum creatinine; Qualifiers: Rhabdomyolysis type: non-traumatic Qualified Code(s): M62.82 - Rhabdomyolysis (4) Fall Current Visit: Yes Status: Acute Assessment and plan: poor historian; history obtained from her daughter at bedside- reports that patient fell down from her recliner chair while trying to take off her right foot Unna boot; she is alone at night time at home; fall precautions; PT/OT evaluation; Qualifiers: Encounter type: initial encounter Qualified Code(s): W19.XXXA - Unspecified fall, initial encounter (5) Hypothyroidism Current Visit: Yes Status: Chronic Assessment and plan: continue Levothyroxine; Qualifiers: Hypothyroidism type: unspecified Qualified Code(s): E03.9 - Hypothyroidism , unspecified (6) Hypertension Current Visit: Yes Status: Chronic Qualifiers: Hypertension type: unspecified secondary hypertension Qualified Code(s): I15.9 - Secondary hypertension, unspecified; I15 - Secondary hypertension (7) Dementia Current Visit: Yes Status: Chronic Assessment and plan: supportive care; continues to be confused with memory lapses; Qualifiers: Dementia type: Alzheimer's disease Alzheimer's disease onset: late-onset Dementia behavioral disturbance: without behavioral disturbance Qualified Code (s): G30.1 - Alzheimer's disease with late onset; F02.80 - Dementia in other diseases classified elsewhere without behavioral disturbance; F02.80 - Dementia in other diseases classified elsewhere without behavioral disturbance; F02.80 - Dementia in other diseases classified elsewhere without behavioral disturbance (8) Knee contracture Current Visit: Yes Status: Acute Assessment and plan: unclear etiology; no e/o infection; check right knee XRay; continue muscle relaxants- Flexeril; Qualifiers: Laterality: right Qualified Code(s): M24.561 - Contracture, right knee (9) Decubitus ulcer, heel, right, unstageable Current Visit: Yes Status: Chronic Assessment and plan: has chronic unstageable right heel pressure ulcer with black eschar and foul- smelling; will consult wound care; - Subjective Interval history: Appears much better today; more alert and oriented, able to answer questions; does not remember the reason for admission; reports locked right knee and inability to straighten her leg; had vaginal pessary removed yesterday; no pain , nausea, vomiting; - Constitutional Vitals: Temp Pulse Resp BP Pulse Ox 98.1 F 79 15 109/75 94 06/12/17 05:06 06/12/17 05:06 06/12/17 05:06 06/12/17 05:06 06/12/17 05:06 General appearance: Present: A&O X 2, answers questions appropriately - Respiratory Respiratory exam: Present: CTAB. Absent: accessory muscle use, rales, rhonchi, wheezes - Cardiovascular Cardiovascular exam: Present: RRR, +S1, +S2. Absent: diastolic murmur, gallop, rubs, systolic murmur - GI/Abdominal GI/Abdominal exam: Present: normal bowel sounds, soft, no peritoneal signs. Absent: distended, tenderness - Extremities Exam Extremities exam: Present: warm, radial pulses palpable and symmetrical. Absent : calf tenderness, cyanotic, pedal edema Additional comments: right knee in flexed position, unable to extend ?spasms; surgical scar over anterior right knee, possible TKR - Neurological Exam Neurological exam: Present: CN II-XII intact, oriented X3, no focal deficits. Absent: pronater drift, facial droop, speech deficit Internal Medicine: Result - Labs CBC & Chem 7: 06/12/17 03:12 06/12/17 03:12 Labs: Short CBC 06/12/17 Range/Units 03:12 WBC 10.7 (4.3-11.1) K/mcL Hgb 11.2 L (11.5-15.4) g/dL Hct 35.8 (35.3-44.9) % Plt Count 235 (140-400) K/mcL Neutrophils # 8.4 (1.6-8.9) K/mcL BMP 06/12/17 03:12 Sodium 135 L Potassium 3.7 Chloride 105 Carbon Dioxide 20 BUN 8 Creatinine 0.68 Glucose 98 Calcium 8.6 Consult Discharge Plan - Plan Referrals: Sharonda Bender, TEACHER ASST [Primary Care Provider] -
[2017-06-12] MEDS: Ascorbic Acid 500 MG TABLET PO SCH (10:01)
[2017-06-12] MEDS: Triamcinolone Acet 0.1% CRM 15 GM TUBE TP SCH ×2 (10:02→21:18)
--- NOTE | 2017-06-12 10:21 | General Surgery Progress Note ---
Date of Encounter: 06/12/17 Time of Encounter: 10:21 - Assessment and Plan (1) Rectovaginal fistula Current Visit: Yes Status: Acute Status post pessary removal by DIRECTOR OF HOME HEALTH SERVICES day #1 Patient denies any symptoms of fevers, chills which would indicate an infection Plan We will likely a follow-up as an outpatient for fistulotomy (2) Urinary tract infection Current Visit: Yes Status: Acute Per primary team Likely related to rectovaginal fistula We will follow up as an outpatient for fistulotomy Qualifiers: Urinary tract infection type: site unspecified Hematuria presence: without hematuria Qualified Code(s): N39.0 - Urinary tract infection, site not specified (3) Retained vaginal foreign body Current Visit: Yes Status: Resolved Status post pessary removal by DIRECTOR OF HOME HEALTH SERVICES day #1 Resolved Qualifiers: Encounter type: initial encounter Qualified Code(s): T19.2XXA - Foreign body in vulva and vagina, initial encounter (4) DVT prophylaxis Current Visit: Yes Status: Acute On Lovenox, per primary team Subjective Patient reports: no new complaints, feels better, tolerating a regular diet Narrative: Patient seen and examined at bedside this morning. He states that she feels tired otherwise without complaints. Pain is under control, no fevers or chills that she has noticed. She continues to appear confused this morning and is alert and oriented 2. Objective Vital Signs - Last 8 Hours Temp Pulse Resp BP Pulse Ox 06/12/17 05:06 98.1 F 79 15 109/75 94 Intake and Output 06/11/17 06/12/17 06/12/17 23:59 07:59 15:59 Intake Total 200 / 200 146 / 146 Output Total 400 / 400 700 / 700 Balance -200 / -200 -554 / -554 Intake: IV Fluids 200 / 200 146 / 146 0.9 % Sodium Chloride 1,000 ML 146 / 146 @ 60 mls/hr IVC .[id number] BECKY Rx #:[id number] Cipro Premix 400 MG/200 ML 400 200 / 200 mg In 200 ml @ 200 mls/hr IVPB Q12HR BECKY Rx#:[id number] Oral 0 / 0 Output: Catheter 400 / 400 700 / 700 Other: Stool Size Large Stool Consistency liquid Stool Color Black # Urine Diapers 1 # Bowel Movement Diapers 1 Weight 72.9 kg Blood Glucose* 103 118 Patient Weight 06/12/17 23:59 Weight 72.9 kg - General physical appearance well developed, well nourished, no distress, no pain - Respiratory normal expansion, normal respiratory effort, clear to auscultation - Cardiovascular Cardiovascular exam: Present: RRR, no murmurs/rubs/gallops - Abdomen Abdomen: Present: bowel sounds present, soft, non tender - Labs 06/12/17 03:12 06/12/17 03:12 Diabetes panel 06/12/17 Range/Units 03:12 Sodium 135 L (136-145) mEq/L Potassium 3.7 (3.5-4.5) mEq/L Chloride 105 (98-109) mEq/L Carbon Dioxide 20 (19-29) mEq/L BUN 8 (7-20) mg/dL Creatinine 0.68 (0.57-1.11) mg/dL Glucose 98 (70-99) mg/dL Calcium 8.6 (8.6-10.8) mg/dL Calcium panel 06/12/17 Range/Units 03:12 Calcium 8.6 (8.6-10.8) mg/dL Pituitary panel 06/12/17 Range/Units 03:12 Sodium 135 L (136-145) mEq/L Potassium 3.7 (3.5-4.5) mEq/L Chloride 105 (98-109) mEq/L Carbon Dioxide 20 (19-29) mEq/L BUN 8 (7-20) mg/dL Creatinine 0.68 (0.57-1.11) mg/dL Glucose 98 (70-99) mg/dL Calcium 8.6 (8.6-10.8) mg/dL Adrenal panel 06/12/17 Range/Units 03:12 Sodium 135 L (136-145) mEq/L Potassium 3.7 (3.5-4.5) mEq/L Chloride 105 (98-109) mEq/L Carbon Dioxide 20 (19-29) mEq/L BUN 8 (7-20) mg/dL Creatinine 0.68 (0.57-1.11) mg/dL Glucose 98 (70-99) mg/dL Calcium 8.6 (8.6-10.8) mg/dL Consult Discharge Plan - Plan Referrals: Sharonda Bender, ERVIN [Primary Care Provider] -
[2017-06-12] MEDS ORDERED: Ibuprofen 400 MG TABLET PO PRN (11:27)
[2017-06-12] MEDS: 0.9 % Sodium Chloride 1,000 ML IVC SCH (14:11)
[2017-06-13] MEDS: 0.9 % Sodium Chloride 1,000 ML IVC SCH ×3 (05:27→21:38)
[2017-06-13] MEDS: *HR* Enoxaparin 40 MG/0.4 ML SYRINGE SQ SCH (05:28)
[2017-06-13 06:25] LABS: Basophils % 0.3 %; Eosinophils # 0.2 K/mcL (0.0-0.6); Eosinophils % 2.6 %; Hematocrit 33.1 % (35.3-44.9); Hemoglobin 10.7 g/dL (11.5-15.4); Immature Granulocytes % 0.3 % (0-4); Lymphocytes # 1.3 K/mcL (0.6-4.6); Lymphocytes % 14.8 %; Mean Corpuscular HGB Conc 32.3 g/dL (31.6-35.5); Mean Corpuscular Hemoglobin 27.6 pg (28.0-33.3); Mean Corpuscular Volume 85.5 fL (83.0-100.0); Mean Platelet Volume 9.4 fL (9.4-12.4); Monocytes # 0.7 K/mcL (0.0-1.3); Monocytes % 7.9 %; Neutrophils # 6.5 K/mcL (1.6-8.9); Platelet Count 226 K/mcL (140-400); Red Blood Count 3.87 M/mcL (3.82-4.97); Red Cell Distribution Width 13.3 % (11.5-14.5); Segmented Neutrophils % 74.1 %
[2017-06-13 06:29] LABS: BUN/Creatinine Ratio 10 (6-26); Blood Urea Nitrogen 6 mg/dL (7-20); Calcium 7.9 mg/dL (8.6-10.8); Carbon Dioxide 23 mEq/L (19-29); Chloride 106 mEq/L (98-109); Glucose 96 mg/dL (70-99); Magnesium 1.1 mg/dL (1.6-2.6); Osmolality,Calculated 281 (280-300); Potassium 3.4 mEq/L (3.5-4.5); Sodium 137 mEq/L (136-145); eGFR For African Americans > 60 (> 60); eGFR For Non-African Americans > 60 (> 60)
[2017-06-13] MEDS ORDERED: Potassium Chloride Elixir 20 MEQ/15 ML UDC PO ONE (08:05)
[2017-06-13] MEDS: Ascorbic Acid 500 MG TABLET PO SCH (09:05)
[2017-06-13] MEDS: Magnesium Oxide 400 MG TABLET PO SCH (09:05)
[2017-06-13] MEDS: Triamcinolone Acet 0.1% CRM 15 GM TUBE TP SCH ×2 (09:12→21:12)
--- NOTE | 2017-06-13 10:00 | Electrocardiograph Report ---
[facility] Test Date: 2017-06-10 Pat Name: Chantal Langston Department: 104 Room: 3A14 Gender: F Process Plant Operator: : [id number] Requested By: Tulio Khan Order Number: [id number] Reading MD: Xavier Guerrier MD Measurements Intervals [place] Rate: 93 P: 31 WI: 152 QRS: -27 QRSD: 70 T: 37 QT: 355 QTc: 406 Interpretive Statements SINUS RHYTHM INFERIOR MYOCARDIAL INFARCTION [40+ ms Q WAVE AND/OR ST/T ABNORMALITY IN II/aVF], PROBABLY OLD Electronically Signed On 06-13-2017 9:32:05 EST by Xavier Guerrier MD
--- NOTE | 2017-06-13 14:13 | General Surgery Progress Note ---
Date of Encounter: 06/13/17 Time of Encounter: 14:00 - Assessment and Plan (1) Rectovaginal fistula Current Visit: Yes Status: Acute POD #2 Pessary removed per ADVERTISING ASSISTANT MANAGER. Dr. Morris reviewed with daughter, Martita (POA) who will further discuss with family and make a decision as to desired surgical intervention given patient's dementia history. Plan: Serial abdominal exams We will continue to follow along with you. Subjective Patient reports: no new complaints, flatus, bowel movement, afebrile Narrative: confused. No family at bedside at this time. Objective Vital Signs - Last 8 Hours Temp Pulse Resp BP Pulse Ox 06/13/17 10:34 98.0 F 85 18 101/63 96 06/13/17 07:40 94 06/13/17 07:27 98.3 F 86 16 104/68 94 Intake and Output 06/12/17 06/13/17 06/13/17 23:59 07:59 15:59 Intake Total 1920 / 1920 1100 / 1100 480 / 480 Output Total 500 / 500 1500 / 1500 350 / 350 Balance 1420 / 1420 -400 / -400 130 / 130 Intake: IV Fluids 200 / 200 1000 / 1000 0.9 % Sodium Chloride 1,000 ML 1000 / 1000 @ 60 mls/hr IVC .[id number] [facility] Rx #:[id number] Cipro Premix 400 MG/200 ML 400 200 / 200 mg In 200 ml @ 200 mls/hr IVPB Q12HR [facility] Rx#:[id number] Oral 1720 / 1720 100 / 100 480 / 480 Output: Catheter 500 / 500 1500 / 1500 350 / 350 Other: Meal Dinner Lunch Percent of Meal Consumed 100% 75% Stool Size Large Large Moderate Stool Consistency liquid loose loose liquid liquid Stool Color Black Black Black # Urine Diapers 1 # Bowel Movement Diapers 1 1 1 Weight 72.6 kg Blood Glucose* 112 103 115 Patient Weight 06/13/17 23:59 Weight 72.6 kg - General physical appearance no distress - ENT atraumatic, normocephalic - Neck Neck exam: trachea midline - Respiratory normal expansion, normal respiratory effort, clear to auscultation - Cardiovascular Cardiovascular exam: Present: RRR, murmurs - Abdomen Abdomen: Present: bowel sounds present, soft, non tender - Integumentary no abnormal pigmentation - Neurologic confused (Pleasant) - Musculoskeletal normal posture - Psychiatric oriented to person - Labs 06/13/17 06:07 06/13/17 06:07 Diabetes panel 06/13/17 Range/Units 06:07 Sodium 137 (136-145) mEq/L Potassium 3.4 L (3.5-4.5) mEq/L Chloride 106 (98-109) mEq/L Carbon Dioxide 23 (19-29) mEq/L BUN 6 L (7-20) mg/dL Creatinine 0.61 (0.57-1.11) mg/dL Glucose 96 (70-99) mg/dL Calcium 7.9 L (8.6-10.8) mg/dL Calcium panel 06/13/17 Range/Units 06:07 Calcium 7.9 L (8.6-10.8) mg/dL Pituitary panel 06/13/17 Range/Units 06:07 Sodium 137 (136-145) mEq/L Potassium 3.4 L (3.5-4.5) mEq/L Chloride 106 (98-109) mEq/L Carbon Dioxide 23 (19-29) mEq/L BUN 6 L (7-20) mg/dL Creatinine 0.61 (0.57-1.11) mg/dL Glucose 96 (70-99) mg/dL Calcium 7.9 L (8.6-10.8) mg/dL Adrenal panel 06/13/17 Range/Units 06:07 Sodium 137 (136-145) mEq/L Potassium 3.4 L (3.5-4.5) mEq/L Chloride 106 (98-109) mEq/L Carbon Dioxide 23 (19-29) mEq/L BUN 6 L (7-20) mg/dL Creatinine 0.61 (0.57-1.11) mg/dL Glucose 96 (70-99) mg/dL Calcium 7.9 L (8.6-10.8) mg/dL Consult Discharge Plan - Plan Referrals: Sharonda Bender, ERVIN [Primary Care Provider] -
--- NOTE | 2017-06-13 14:52 | Internal Med Progress Note ---
Date of Encounter: 06/13/17 Time of Encounter: 10:00 - Assessment and plan (1) Urinary tract infection Current Visit: Yes Status: Acute Assessment and plan: UA suggestive of infection, urine culture grows pansensitive E.coli; received a dose of IV Rocephin in the ER; continue IV Ciprofloxacin- day 3; Qualifiers: Urinary tract infection type: site unspecified Hematuria presence: without hematuria Qualified Code(s): N39.0 - Urinary tract infection, site not specified (2) Rectovaginal fistula Current Visit: Yes Status: Acute Assessment and plan: incidental finding on CT abdomen/pelvis; likely cause of UTI. Surgery f/up appreciated- plan for outpatient fistulotomy; GENERAL CLEANER consult noted, s/p pessary removal on 06/11/17. (3) Rhabdomyolysis Current Visit: Yes Status: Chronic Assessment and plan: due to fall; initial CK in 3000s; improving currently; continue IV hydration; trend CK and monitor serum creatinine; Qualifiers: Rhabdomyolysis type: non-traumatic Qualified Code(s): M62.82 - Rhabdomyolysis (4) Fall Current Visit: Yes Status: Acute Assessment and plan: poor historian; history obtained from her daughter at bedside- reports that patient fell down from her recliner chair while trying to take off her right foot Unna boot; she is alone at night time at home; fall precautions; PT/OT evaluation; social services assistant consulted for safe discharge plan; Qualifiers: Encounter type: initial encounter Qualified Code(s): W19.XXXA - Unspecified fall, initial encounter (5) Hypothyroidism Current Visit: Yes Status: Chronic Assessment and plan: continue Levothyroxine; Qualifiers: Hypothyroidism type: unspecified Qualified Code(s): E03.9 - Hypothyroidism , unspecified (6) Hypertension Current Visit: Yes Status: Chronic Qualifiers: Hypertension type: unspecified secondary hypertension Qualified Code(s): I15.9 - Secondary hypertension, unspecified; I15 - Secondary hypertension (7) Dementia Current Visit: Yes Status: Chronic Qualifiers: Dementia type: Alzheimer's disease Alzheimer's disease onset: late-onset Dementia behavioral disturbance: without behavioral disturbance Qualified Code (s): G30.1 - Alzheimer's disease with late onset; F02.80 - Dementia in other diseases classified elsewhere without behavioral disturbance; F02.80 - Dementia in other diseases classified elsewhere without behavioral disturbance; F02.80 - Dementia in other diseases classified elsewhere without behavioral disturbance (8) Knee contracture Current Visit: Yes Status: Acute Assessment and plan: unclear etiology; no e/o infection; right knee XRay shows no e/o- fracture/ dislocation with intact prosthesis; continue muscle relaxants- Flexeril; PT/OT; Qualifiers: Laterality: right Qualified Code(s): M24.561 - Contracture, right knee (9) Decubitus ulcer, heel, right, unstageable Current Visit: Yes Status: Chronic Assessment and plan: has chronic unstageable right heel pressure ulcer with black eschar and foul- smelling; wound care consult pending; - Subjective Interval history: Continues to be confused, cannot provide history, at baseline mental status; reports right knee and leg pain, right foot pain; cannot extend right knee; no nausea, vomiting, fever/chills, abdominal pain; - Constitutional Vitals: Temp Pulse Resp BP Pulse Ox 98.2 F 88 16 102/64 94 06/13/17 14:40 06/13/17 14:40 06/13/17 14:40 06/13/17 14:40 06/13/17 14:40 General appearance: Present: A&O X 2. Absent: answers questions appropriately - Respiratory Respiratory exam: Present: CTAB. Absent: accessory muscle use, rales, rhonchi, wheezes - Cardiovascular Cardiovascular exam: Present: RRR, +S1, +S2. Absent: diastolic murmur, gallop, rubs, systolic murmur - GI/Abdominal GI/Abdominal exam: Present: normal bowel sounds, soft, no peritoneal signs. Absent: distended, tenderness - Extremities Exam Extremities exam: Present: full ROM (right knee flexed, cannot extend completely ;), warm, radial pulses palpable and symmetrical. Absent: calf tenderness, cyanotic, pedal edema - Skin Skin exam: Present: dry, intact Additional comments: right heel ulcer with eschar and foul-smelling Internal Medicine: Result - Labs CBC & Chem 7: 06/13/17 06:07 06/13/17 06:07 Labs: Short CBC 06/13/17 Range/Units 06:07 WBC 8.7 (4.3-11.1) K/mcL Hgb 10.7 L (11.5-15.4) g/dL Hct 33.1 L (35.3-44.9) % Plt Count 226 (140-400) K/mcL Neutrophils # 6.5 (1.6-8.9) K/mcL BMP 06/13/17 06:07 Sodium 137 Potassium 3.4 L Chloride 106 Carbon Dioxide 23 BUN 6 L Creatinine 0.61 Glucose 96 Calcium 7.9 L - Impressions Impressions Knee X-Ray 06/12/17 14:40 IMPRESSION: No acute osseous abnormality. Stable right knee arthroplasty. D/ / 06/12/2017 15:59:54 Christian Lyon MD / kevin Interpreting Provider: Christian Lyon MD Consult Discharge Plan - Plan Referrals: Sharonda Bender CNP [Primary Care Provider] -
[2017-06-14 05:01] LABS: BUN/Creatinine Ratio 11 (6-26); Blood Urea Nitrogen 7 mg/dL (7-20); Calcium 8.2 mg/dL (8.6-10.8); Carbon Dioxide 25 mEq/L (19-29); Chloride 104 mEq/L (98-109); Creatine Kinase 726 Units/L (29-168); Glucose 96 mg/dL (70-99); Magnesium 1.5 mg/dL (1.6-2.6); Osmolality,Calculated 284 (280-300); Potassium 3.8 mEq/L (3.5-4.5); Sodium 138 mEq/L (136-145); eGFR For African Americans > 60 (> 60); eGFR For Non-African Americans > 60 (> 60)
[2017-06-14] MEDS: *HR* Enoxaparin 40 MG/0.4 ML SYRINGE SQ SCH (06:15)
--- NOTE | 2017-06-14 09:23 | Internal Med Progress Note ---
Date of Encounter: 06/14/17 Time of Encounter: 09:22 - Assessment and plan (1) Urinary tract infection Current Visit: Yes Status: Acute Assessment and plan: UA suggestive of infection, urine culture grows pansensitive E.coli; received a dose of IV Rocephin in the ER; continue IV Ciprofloxacin- day 4 Qualifiers: Urinary tract infection type: site unspecified Hematuria presence: without hematuria Qualified Code(s): N39.0 - Urinary tract infection, site not specified (2) Rectovaginal fistula Current Visit: Yes Status: Acute Assessment and plan: incidental finding on CT abdomen/pelvis; likely cause of UTI. Surgery f/up appreciated- plan for outpatient fistulotomy; CLAIM REP consult noted, s/p pessary removal on 06/11/17. (3) Rhabdomyolysis Current Visit: Yes Status: Chronic Assessment and plan: due to fall; was found down for unknown amount of time. Family suspects greater than 12 hours. Initial CK in 3000s; improving currently; continue IV hydration; trend CK and monitor serum creatinine; Qualifiers: Rhabdomyolysis type: non-traumatic Qualified Code(s): M62.82 - Rhabdomyolysis (4) Knee contracture Current Visit: Yes Status: Acute Assessment and plan: unclear etiology; no e/o infection; right knee XRay shows no e/o- fracture/ dislocation with intact prosthesis; continue muscle relaxants- Flexeril; PT/OT; Qualifiers: Laterality: right Qualified Code(s): M24.561 - Contracture, right knee (5) Hypothyroidism Current Visit: Yes Status: Chronic Assessment and plan: continue Levothyroxine; Qualifiers: Hypothyroidism type: unspecified Qualified Code(s): E03.9 - Hypothyroidism , unspecified (6) Hypertension Current Visit: Yes Status: Chronic Assessment and plan: per hx. BP controlled. Cont home BP medications Qualifiers: Hypertension type: unspecified secondary hypertension Qualified Code(s): I15.9 - Secondary hypertension, unspecified; I15 - Secondary hypertension (7) Fall Current Visit: Yes Status: Acute Assessment and plan: poor historian; history obtained from her daughter at bedside- reports that patient fell down from her recliner chair while trying to take off her right foot Unna boot; she is alone at night time at home; fall precautions; PT/OT evaluation; social work associate consulted for safe discharge plan; Qualifiers: Encounter type: initial encounter Qualified Code(s): W19.XXXA - Unspecified fall, initial encounter (8) Dementia Current Visit: Yes Status: Chronic Assessment and plan: supportive care; continues to be confused with memory lapses; Qualifiers: Dementia type: Alzheimer's disease Alzheimer's disease onset: late-onset Dementia behavioral disturbance: without behavioral disturbance Qualified Code (s): G30.1 - Alzheimer's disease with late onset; F02.80 - Dementia in other diseases classified elsewhere without behavioral disturbance; F02.80 - Dementia in other diseases classified elsewhere without behavioral disturbance; F02.80 - Dementia in other diseases classified elsewhere without behavioral disturbance (9) Decubitus ulcer, heel, right, unstageable Current Visit: Yes Status: Chronic Assessment and plan: has chronic unstageable right heel pressure ulcer with black eschar and foul- smelling; wound care consult pending; (10) DVT prophylaxis Current Visit: Yes Status: Acute - Time Spent With Patient less than 15 minutes - Subjective Interval history: Seen and examined at bedside, patient is new to me. Information obtained from chart review and patient report. She is alert to self only; poor historian and does not provide details. Says she feels okay. Sitting up in chair at bedside eating breakfast. - Constitutional Vitals: Temp Pulse Resp BP Pulse Ox 98.5 F 85 18 113/76 97 06/14/17 06:59 06/14/17 06:59 06/14/17 06:59 06/14/17 06:59 06/14/17 06:59 General appearance: Present: A&O X 2. Absent: answers questions appropriately - Head Head exam: Present: atraumatic, normocephalic - Eye Eye exam: Present: PERRL, conjuntiva pink, sclera anicteric Pupils: Present: PERRL - Neck Neck exam general surgery: Present: supple, trachea midline. Absent: lymphadenopathy - Respiratory Respiratory exam: Present: CTAB. Absent: accessory muscle use, rales, rhonchi, wheezes - Cardiovascular Cardiovascular exam: Present: RRR, +S1, +S2. Absent: diastolic murmur, gallop, rubs, systolic murmur - GI/Abdominal GI/Abdominal exam: Present: normal bowel sounds, soft, no peritoneal signs. Absent: distended, tenderness - Additional comments: + long catheter - Extremities Exam Extremities exam: Present: warm, radial pulses palpable and symmetrical. Absent : calf tenderness, cyanotic, pedal edema - Neurological Exam Neurological exam: Present: CN II-XII intact, oriented X3, no focal deficits. Absent: pronater drift, facial droop, speech deficit - Skin Skin exam: Present: dry, intact Internal Medicine: Result - Labs CBC & Chem 7: 06/13/17 06:07 06/14/17 04:26 Labs: BMP 06/14/17 04:26 Sodium 138 Potassium 3.8 Chloride 104 Carbon Dioxide 25 BUN 7 Creatinine 0.64 Glucose 96 Calcium 8.2 L Consult Discharge Plan - Plan Referrals: Sharonda Bender, DEPUTY CORONER INVESTIGATOR [Primary Care Provider] -
[2017-06-14] MEDS: Ascorbic Acid 500 MG TABLET PO SCH (10:29)
[2017-06-14] MEDS: Magnesium Oxide 400 MG TABLET PO SCH (10:29)
[2017-06-14] MEDS: Triamcinolone Acet 0.1% CRM 15 GM TUBE TP SCH ×2 (10:29→22:35)
--- NOTE | 2017-06-14 13:25 | General Surgery Progress Note ---
Date of Encounter: 06/14/17 Time of Encounter: 13:20 - Assessment and Plan (1) Rectovaginal fistula Current Visit: Yes Status: Acute Discussed plan of care with the patient's family members- will plan for a diverting colostomy tentatively on 06/16/[address] Morris Regular diet IV fluids- 60ml/hour Removal of pessary complete per PRECISION ASSEMBLER BENCH Supportive care (2) Retained vaginal foreign body Current Visit: Yes Status: Resolved Pessary removed per PRECISION ASSEMBLER BENCH on 06/11/17 Qualifiers: Encounter type: initial encounter Qualified Code(s): T19.2XXA - Foreign body in vulva and vagina, initial encounter (3) Rhabdomyolysis Current Visit: Yes Status: Resolved CK- 3626 Management per hospitalist Qualifiers: Rhabdomyolysis type: non-traumatic Qualified Code(s): M62.82 - Rhabdomyolysis (4) Urinary tract infection Current Visit: Yes Status: Acute Urine culture- ecoli IV antibiotic therapy- cipro Management per hospitalist Qualifiers: Urinary tract infection type: site unspecified Hematuria presence: without hematuria Qualified Code(s): N39.0 - Urinary tract infection, site not specified (5) Physical deconditioning Current Visit: Yes Status: Chronic (6) Ulcer of right heel Current Visit: Yes Status: Chronic Followed by Dr. Maldonado in wound care Wound care orders- Betadine paint to the unstageable areas to control the bioburden and cover the area with gauze. Wrap with kerlex gauze. She is to practice aggressive pressure-relief with heel medics boots and aggressive pressure-relief with pillows under the right calf. Qualifiers: Non-pressure ulcer stage: unspecified non-pressure ulcer stage Qualified Code(s): L97.419 - Non-pressure chronic ulcer of right heel and midfoot with unspecified severity Subjective Patient reports: no new complaints, tolerating a regular diet, flatus, bowel movement, afebrile Objective Vital Signs - Last 8 Hours Temp Pulse Resp BP Pulse Ox 06/14/17 11:08 97.9 F 78 16 106/72 98 06/14/17 06:59 98.5 F 85 18 113/76 97 Intake and Output 06/13/17 06/14/17 06/14/17 23:59 07:59 15:59 Intake Total 1200 / 1200 480 / 480 Output Total 550 / 550 1825 / 1825 275 / 275 Balance 650 / 650 -1825 / -1825 205 / 205 Intake: IV Fluids 1200 / 1200 0.9 % Sodium Chloride 1,000 ML 1000 / 1000 @ 60 mls/hr IVC .[id number] [facility] Rx #:[id number] Cipro Premix 400 MG/200 ML 400 200 / 200 mg In 200 ml @ 200 mls/hr IVPB Q12HR [facility] Rx#:[id number] Oral 480 / 480 Output: Urine 550 / 550 Straight Cath 275 / 275 Catheter 1824 Other: Meal Breakfast Percent of Meal Consumed 100% Stool Size Small Moderate Stool Consistency loose soft soft Stool Color Black # Bowel Movement Diapers 1 1 1 Blood Glucose* 104 130 - General physical appearance no distress, no pain - Eyes normal ocular movement - ENT normal mucosa, poor half-way, atraumatic, normocephalic - Neck Neck exam: trachea midline - Respiratory normal respiratory effort, clear to auscultation, other (diminished breath sounds bilateral) - Cardiovascular Cardiovascular exam: Present: RRR - Abdomen Abdomen: Present: bowel sounds present, soft, non tender - Genitourinary other (long catheter to SD with clear, yellow urine noted) - Neurologic CN 2-12 grossly intact - Musculoskeletal other (physical deconditioning) - Psychiatric oriented to person, oriented to place - Labs 06/13/17 06:07 06/14/17 04:26 Diabetes panel 06/14/17 Range/Units 04:26 Sodium 138 (136-145) mEq/L Potassium 3.8 (3.5-4.5) mEq/L Chloride 104 (98-109) mEq/L Carbon Dioxide 25 (19-29) mEq/L BUN 7 (7-20) mg/dL Creatinine 0.64 (0.57-1.11) mg/dL Glucose 96 (70-99) mg/dL Calcium 8.2 L (8.6-10.8) mg/dL Calcium panel 06/14/17 Range/Units 04:26 Calcium 8.2 L (8.6-10.8) mg/dL Pituitary panel 06/14/17 Range/Units 04:26 Sodium 138 (136-145) mEq/L Potassium 3.8 (3.5-4.5) mEq/L Chloride 104 (98-109) mEq/L Carbon Dioxide 25 (19-29) mEq/L BUN 7 (7-20) mg/dL Creatinine 0.64 (0.57-1.11) mg/dL Glucose 96 (70-99) mg/dL Calcium 8.2 L (8.6-10.8) mg/dL Adrenal panel 06/14/17 Range/Units 04:26 Sodium 138 (136-145) mEq/L Potassium 3.8 (3.5-4.5) mEq/L Chloride 104 (98-109) mEq/L Carbon Dioxide 25 (19-29) mEq/L BUN 7 (7-20) mg/dL Creatinine 0.64 (0.57-1.11) mg/dL Glucose 96 (70-99) mg/dL Calcium 8.2 L (8.6-10.8) mg/dL Consult Discharge Plan - Plan Referrals: Sharonda Bender, NETWORK SUPPORT ENGINEER [Primary Care Provider] - - Attending Attestation For this encounter, I have reviewed the QUARTZ MOUNTER or PA documentation, treatment plan, and medical decision making; and I have had face to face time with this patient.
[2017-06-14] MEDS: Ibuprofen 400 MG TABLET PO PRN (13:35)
[2017-06-14] MEDS: 0.9 % Sodium Chloride 1,000 ML IVC SCH (17:10)
[2017-06-15] MEDS: *HR* Enoxaparin 40 MG/0.4 ML SYRINGE SQ SCH (06:01)
[2017-06-15] MEDS: Ascorbic Acid 500 MG TABLET PO SCH (08:20)
[2017-06-15] MEDS: Magnesium Oxide 400 MG TABLET PO SCH (08:20)
[2017-06-15] MEDS: Triamcinolone Acet 0.1% CRM 15 GM TUBE TP SCH ×2 (08:21→21:30)
[2017-06-15] MEDS: 0.9 % Sodium Chloride 1,000 ML IVC SCH (09:34)
[2017-06-15] MEDS ORDERED: Polyethylene Glycol 3350 255 GM POWDER PO ONE (11:12)
--- NOTE | 2017-06-15 11:21 | General Surgery Progress Note ---
Date of Encounter: 06/15/17 Time of Encounter: 11:00 - Assessment and Plan (1) Rectovaginal fistula Current Visit: Yes Status: Acute Discussed plan of care with the patient's family members- will plan for a diverting colostomy tentatively on 06/16/[address] Morris Clear liquid diet today NPO after midnight Miralax and gatorade bowel prep Dulcolax X 2 doses IV fluids- 60ml/hour Removal of pessary complete per PICKER TENDER Supportive care (2) Retained vaginal foreign body Current Visit: Yes Status: Resolved Pessary removed per PICKER TENDER on 06/11/17 Qualifiers: Encounter type: initial encounter Qualified Code(s): T19.2XXA - Foreign body in vulva and vagina, initial encounter (3) Rhabdomyolysis Current Visit: Yes Status: Resolved CK- 3626 Management per hospitalist Qualifiers: Rhabdomyolysis type: non-traumatic Qualified Code(s): M62.82 - Rhabdomyolysis (4) Urinary tract infection Current Visit: Yes Status: Acute Urine culture- ecoli IV antibiotic therapy- cipro Management per hospitalist Qualifiers: Urinary tract infection type: site unspecified Hematuria presence: without hematuria Qualified Code(s): N39.0 - Urinary tract infection, site not specified (5) Physical deconditioning Current Visit: Yes Status: Chronic (6) Ulcer of right heel Current Visit: Yes Status: Chronic Followed by Dr. Maldonado in wound care Wound care orders- Betadine paint to the unstageable areas to control the bioburden and cover the area with gauze. Wrap with kerlex gauze. She is to practice aggressive pressure-relief with heel medics boots and aggressive pressure-relief with pillows under the right calf. Qualifiers: Non-pressure ulcer stage: unspecified non-pressure ulcer stage Qualified Code(s): L97.419 - Non-pressure chronic ulcer of right heel and midfoot with unspecified severity Subjective Patient reports: no new complaints, tolerating a regular diet, flatus, bowel movement, afebrile Objective Vital Signs - Last 8 Hours Temp Pulse Resp BP Pulse Ox 06/15/17 06:38 97.6 F 76 14 125/77 96 06/15/17 03:29 97.3 F L 75 16 118/69 97 Intake and Output 06/14/17 06/15/17 06/15/17 23:59 07:59 15:59 Intake Total 1000 / 1000 Output Total 1050 / 1050 Balance -1050 / -1050 1000 / 1000 Intake: IV Fluids 1000 / 1000 0.9 % Sodium Chloride 1,000 ML 1000 / 1000 @ 60 mls/hr IVC .[id number] [facility] Rx #:[id number] Output: Urine 500 / 500 Catheter 550 / 550 Other: Stool Size Moderate Stool Consistency loose Stool Color Black Green # Bowel Movement Diapers 1 1 Weight 74.928 kg Blood Glucose* 142 106 Patient Weight 06/15/17 23:59 Weight 74.928 kg - General physical appearance well developed, no distress, no pain - Eyes normal ocular movement - ENT normal mucosa, poor mcfp, atraumatic, normocephalic - Neck Neck exam: trachea midline - Respiratory normal respiratory effort, clear to auscultation, other (diminished bibasilar bases) - Cardiovascular Cardiovascular exam: Present: RRR - Abdomen Abdomen: Present: bowel sounds present, soft, non tender - Genitourinary other (long catheter to SD with clear yellow urine noted) - Neurologic CN 2-12 grossly intact - Musculoskeletal other (physical deconditioning) - Psychiatric oriented to person, oriented to place, speech is normal - Labs 06/13/17 06:07 06/14/17 04:26 Consult Discharge Plan - Plan Referrals: Sharonda Bender, NETWORK SECURITY ARCHITECT [Primary Care Provider] - - Attending Attestation For this encounter, I have reviewed the BODY CLEANER or PA documentation, treatment plan, and medical decision making; and I have had face to face time with this patient.
--- NOTE | 2017-06-15 11:33 | Internal Med Progress Note ---
Date of Encounter: 06/15/17 Time of Encounter: 08:30 - Assessment and plan (1) Rectovaginal fistula Current Visit: Yes Status: Acute Assessment and plan: incidental finding on CT abdomen/pelvis; likely cause of UTI. LABORER POULTRY HATCHERY consult noted , s/p pessary removal on 06/11/17. Diverting colostomy tentatively planned for with Dr. Morris. Clear liquids now, NPO at midnight. General Surgery following (2) Urinary tract infection Current Visit: Yes Status: Acute Assessment and plan: UA suggestive of infection, urine culture grows pansensitive E.coli; received a dose of IV Rocephin in the ER. Completed 5 day course Ciprofloxacin Qualifiers: Urinary tract infection type: site unspecified Hematuria presence: without hematuria Qualified Code(s): N39.0 - Urinary tract infection, site not specified (3) Rhabdomyolysis Current Visit: Yes Status: Resolved Assessment and plan: due to fall; was found down for unknown amount of time. Family suspects greater than 12 hours. Initial CK in 3000s; trending down. Continue IV hydration; trend CK and monitor serum creatinine Qualifiers: Rhabdomyolysis type: non-traumatic Qualified Code(s): M62.82 - Rhabdomyolysis (4) Knee contracture Current Visit: Yes Status: Acute Assessment and plan: unclear etiology; no e/o infection; right knee XRay shows no e/o- fracture/ dislocation with intact prosthesis; continue muscle relaxants- Flexeril; PT/OT; Qualifiers: Laterality: right Qualified Code(s): M24.561 - Contracture, right knee (5) Hypothyroidism Current Visit: Yes Status: Chronic Assessment and plan: continue Levothyroxine; Qualifiers: Hypothyroidism type: unspecified Qualified Code(s): E03.9 - Hypothyroidism , unspecified (6) Hypertension Current Visit: Yes Status: Chronic Assessment and plan: per hx. BP controlled. Cont home BP medications Qualifiers: Hypertension type: unspecified secondary hypertension Qualified Code(s): I15.9 - Secondary hypertension, unspecified; I15 - Secondary hypertension (7) Fall Current Visit: Yes Status: Acute Assessment and plan: poor historian; history obtained from her daughter at bedside- reports that patient fell down from her recliner chair while trying to take off her right foot Unna boot; she is alone at night time at home; fall precautions; PT/OT evaluation; social contact worker consulted for safe discharge plan Qualifiers: Encounter type: initial encounter Qualified Code(s): W19.XXXA - Unspecified fall, initial encounter (8) Dementia Current Visit: Yes Status: Chronic Assessment and plan: per hx. pleasantly confused. Mentation at baseline. Supportive care Qualifiers: Dementia type: Alzheimer's disease Alzheimer's disease onset: late-onset Dementia behavioral disturbance: without behavioral disturbance Qualified Code (s): G30.1 - Alzheimer's disease with late onset; F02.80 - Dementia in other diseases classified elsewhere without behavioral disturbance; F02.80 - Dementia in other diseases classified elsewhere without behavioral disturbance; F02.80 - Dementia in other diseases classified elsewhere without behavioral disturbance (9) Decubitus ulcer, heel, right, unstageable Current Visit: Yes Status: Chronic Assessment and plan: has chronic unstageable right heel pressure ulcer with black eschar and foul- smelling. Follows with Dr. Mong. [place] local wound care per general surgery recommendations (10) DVT prophylaxis Current Visit: Yes Status: Acute Assessment and plan: lovenox - Subjective Interval history: Seen and examined at bedside; sitting up in bed eating breakfast. She is pleasantly confused. She does report right lower extremity pain. No chest pain , no SOB. No family at bedside for collateral - Constitutional Vitals: Temp Pulse Resp BP Pulse Ox 97.5 F L 87 16 108/75 92 06/15/17 11:16 06/15/17 11:16 06/15/17 11:16 06/15/17 11:16 06/15/17 11:16 General appearance: Present: A&O X 2, pleasant. Absent: answers questions appropriately - Head Head exam: Present: atraumatic, normocephalic - Eye Eye exam: Present: PERRL, conjuntiva pink, sclera anicteric Pupils: Present: PERRL - Neck Neck exam general surgery: Present: supple, trachea midline. Absent: lymphadenopathy - Respiratory Respiratory exam: Present: CTAB. Absent: accessory muscle use, rales, rhonchi, wheezes - Cardiovascular Cardiovascular exam: Present: RRR, +S1, +S2. Absent: diastolic murmur, gallop, rubs, systolic murmur - GI/Abdominal GI/Abdominal exam: Present: normal bowel sounds, soft, no peritoneal signs. Absent: distended, tenderness - Extremities Exam Extremities exam: Present: warm, radial pulses palpable and symmetrical. Absent : calf tenderness, cyanotic, pedal edema Additional comments: Right leg contracture, right heel wound dressing clean dry and intact. Area not assessed - Expanded Lower Extremities Exam Gait: Present: not tested/not observed - Neurological Exam Neurological exam: Present: CN II-XII intact, oriented X3, no focal deficits. Absent: pronater drift, facial droop, speech deficit - Skin Skin exam: Present: dry, intact Additional comments: Right shoulder wound dressing clean dry and intact. Area not assessed. Internal Medicine: Result - Labs CBC & Chem 7: 06/13/17 06:07 06/14/17 04:26 Consult Discharge Plan - Plan Referrals: Sharonda Bender CNP [Primary Care Provider] -
[2017-06-15] MEDS: Ibuprofen 400 MG TABLET PO PRN (12:36)
[2017-06-16] MEDS: 0.9 % Sodium Chloride 1,000 ML IVC SCH (02:18)
[2017-06-16 03:07] LABS: Basophils % 0.4 %; Eosinophils # 0.3 K/mcL (0.0-0.6); Eosinophils % 4.6 %; Hematocrit 36.6 % (35.3-44.9); Hemoglobin 11.5 g/dL (11.5-15.4); Immature Granulocytes % 0.3 % (0-4); Lymphocytes # 1.4 K/mcL (0.6-4.6); Mean Corpuscular HGB Conc 31.4 g/dL (31.6-35.5); Mean Corpuscular Hemoglobin 27.4 pg (28.0-33.3); Mean Corpuscular Volume 87.4 fL (83.0-100.0); Mean Platelet Volume 9.1 fL (9.4-12.4); Monocytes # 0.6 K/mcL (0.0-1.3); Monocytes % 8.3 %; Platelet Count 232 K/mcL (140-400); Red Blood Count 4.19 M/mcL (3.82-4.97); Red Cell Distribution Width 13.2 % (11.5-14.5); Segmented Neutrophils % 67.4 %
[2017-06-16 05:01] LABS: BUN/Creatinine Ratio 8 (6-26); Blood Urea Nitrogen 4 mg/dL (8-23); Calcium 8.4 mg/dL (8.6-10.3); Carbon Dioxide 25 mEq/L (23-29); Chloride 108 mEq/L (98-107); Glucose 100 mg/dL (70-105); Osmolality,Calculated 291 (280-300); Potassium 3.6 mEq/L (3.5-5.1); Sodium 142 mEq/L (136-145); eGFR For African Americans > 60 (> 60); eGFR For Non-African Americans > 60 (> 60)
[2017-06-16] MEDS: *HR* Enoxaparin 40 MG/0.4 ML SYRINGE SQ SCH (06:52)
[2017-06-16] MEDS: Magnesium Oxide 400 MG TABLET PO SCH (08:58)
[2017-06-16] MEDS: Ascorbic Acid 500 MG TABLET PO SCH (08:58)
--- NOTE | 2017-06-16 09:35 | Anesthesia Evaluation PreOp ---
Date of Encounter: 06/16/17 Time of Encounter: 16:00 - Past History Planned Operation: lap diverting colostomy Cardiac History: HTN, Hyperlipidemia Pulmonary History: Denies Any Significant HX TRANSMISSION TESTER History: Other (Alzheimers dementia) Other Medical History: Renal (UTI), Thyroid (hypo), GERD, Other (mild rhabdomyolysis-resolved) Anesthesia History: No Prior Anesthetic Complications, Past Anesthesia (appy, zahida, GIN, TKA) Alcohol Use: none Drug use: none Medications and Allergies Albuterol Sulfate [Ventolin Hfa] 2 puff IH Q4-6H PRN 06/10/16 [History] Docusate [Colace] 100 mg PO DAILY 06/10/16 [History] Ferrous Sulfate [Iron] 325 mg PO TID 06/10/16 [History] Levothyroxine [Synthroid] 75 mcg PO 0630 06/10/16 [History] Folic Acid 1 mg PO DAILY #90 tablet 06/17/16 [Rx] Ascorbic Acid [Vitamin C] 250 mg PO DAILY 08/18/16 [History] Cyclobenzaprine [Flexeril] 10 mg PO TID PRN 08/18/16 [History] Haloperidol [Haldol] 1 mg PO BID 08/18/16 [History] Omeprazole [PriLOSEC] 40 mg PO DAILY 06/11/17 [History] 3 Allergy/AdvReac Type Severity Reaction Status Date / Time Penicillins [PCN] Allergy Unknown Rash Verified 06/10/17 12:59 - Meds/Allergy Pre-op Review Medications Reviewed: Yes Allergies Reviewed: Yes Beta Blockers on Current Med List: No Anesthesia Results - Labs 06/16/17 03:01 06/16/17 04:23 - Imaging EKG: report reviewed (SINUS RHYTHM INFERIOR MYOCARDIAL INFARCTION [40+ ms Q WAVE AND/OR ST/T ABNORMALITY IN II/aVF], PROBABLY OLD) Anesthesia Exam Selected Entries 06/16/17 07:44 Temperature 97.8 F Pulse Rate 79 Respiratory Rate 16 Blood Pressure 125/79 O2 Sat by Pulse Oximetry 95 Weight: 72kg - HEENT Pupil (Motor): EOMI Mallampati: II Teeth: Edentulous Oral Opening: Greater than 3 - TRANSMISSION TESTER LOC: Oriented (to person) TRANSMISSION TESTER Motor: Normal RUE, Normal LUE, Normal RLE, Normal LLE, Normal Face TRANSMISSION TESTER Sensory: Normal: RUE, LUE, RLE, LLE, Face - Cardiac Rhythm: Regular Murmur: None - Pulmonary Breath Sounds: bilateral Clear Respiratory Effort: Symmetrical Anesthesia Assess/Plan ASA Score: 3 Modified Stover Scale for Level of Consciousness: Cooperative, oriented, and tranquil Anesthetic Plan: General Monitoring Plan: Standard Monitors Recovery Plan: PACU (discuss risks of GA with POA(daughter) (Candi Corona [phone]), agrees to proceed. POA has requested no "heroics" in the OR in event of cardiac arrest (no CPR, drugs or cardioversion).)
[2017-06-16] MEDS: Triamcinolone Acet 0.1% CRM 15 GM TUBE TP SCH (11:49)
--- NOTE | 2017-06-16 12:54 | Internal Med Progress Note ---
Date of Encounter: 06/16/17 Time of Encounter: 12:45 - Assessment and plan (1) Hypertension Current Visit: Yes Status: Chronic Assessment and plan: This is per history. The blood pressure is stable. I do not see the patient is on any antihypertensives. We will continue to monitor. Qualifiers: Hypertension type: unspecified secondary hypertension Qualified Code(s): I15.9 - Secondary hypertension, unspecified; I15 - Secondary hypertension (2) Urinary tract infection Current Visit: Yes Status: Acute Assessment and plan: Continue with Cipro. This would be day 6 of antibiotics. Cultures grew Escherichia coli. Qualifiers: Urinary tract infection type: site unspecified Hematuria presence: without hematuria Qualified Code(s): N39.0 - Urinary tract infection, site not specified (3) Rectovaginal fistula Current Visit: Yes Status: Acute Assessment and plan: Surgeries following. MANAGER CALL CENTER remove the pessary during this hospitalization. The plan is for divergent colostomy later today. (4) Dementia Current Visit: Yes Status: Chronic Assessment and plan: per hx. pleasantly confused. Mentation at baseline. Supportive care Qualifiers: Dementia type: Alzheimer's disease Alzheimer's disease onset: late-onset Dementia behavioral disturbance: without behavioral disturbance Qualified Code (s): G30.1 - Alzheimer's disease with late onset; F02.80 - Dementia in other diseases classified elsewhere without behavioral disturbance; F02.80 - Dementia in other diseases classified elsewhere without behavioral disturbance; F02.80 - Dementia in other diseases classified elsewhere without behavioral disturbance (5) Hypothyroidism Current Visit: Yes Status: Chronic Assessment and plan: continue Levothyroxine; Qualifiers: Hypothyroidism type: unspecified Qualified Code(s): E03.9 - Hypothyroidism , unspecified (6) Rhabdomyolysis Current Visit: Yes Status: Resolved Assessment and plan: Continue with IV fluids. This is improving. Qualifiers: Rhabdomyolysis type: non-traumatic Qualified Code(s): M62.82 - Rhabdomyolysis (7) Retained vaginal foreign body Current Visit: Yes Status: Resolved Assessment and plan: The pessary was removed earlier in the stay. Appreciate MANAGER CALL CENTER help Qualifiers: Encounter type: initial encounter Qualified Code(s): T19.2XXA - Foreign body in vulva and vagina, initial encounter (8) DVT prophylaxis Current Visit: Yes Status: Acute Assessment and plan: Lovenox - Subjective Interval history: No acute events. The patient is confused. This is my first time seeing her she has been in the hospital for 6 days. She has been afebrile. Seems the plan is to have a diverting colostomy done later today. I confirmed with the nursing staff. - Constitutional Vitals: Temp Pulse Resp BP Pulse Ox 97.7 F 86 16 123/75 95 06/16/17 12:13 06/16/17 12:13 06/16/17 12:13 06/16/17 12:13 06/16/17 12:13 General appearance: Present: A&O X 2, pleasant. Absent: answers questions appropriately Exam: GEN: NAD. Alert to self only CVS: RRR. S1, S2, No m/r/g RESP: CTAB ABD: Soft, NT, ND, +BS EXT: No edema. 2+ DP. No rashes NEURO: Nonfocal Internal Medicine: Result - Labs CBC & Chem 7: 06/16/17 03:01 06/16/17 04:23 Labs: Short CBC 06/16/17 Range/Units 03:01 WBC 7.5 (4.3-11.1) K/mcL Hgb 11.5 (11.5-15.4) g/dL Hct 36.6 (35.3-44.9) % Plt Count 232 (140-400) K/mcL Neutrophils # 5.0 (1.6-8.9) K/mcL BMP 06/16/17 04:23 Sodium 142 Potassium 3.6 Chloride 108 H Carbon Dioxide 25 BUN 4 L Creatinine 0.49 L Glucose 100 Calcium 8.4 L Consult Discharge Plan - Plan Referrals: Sharonda Bender, SENIOR PRODUCT DEVELOPMENT SCIENTIST [Primary Care Provider] -
[2017-06-16] MEDS ORDERED: *HR* Propofol 200 MG/20 ML VIAL IVP ONE ×2 (14:13→18:31)
[2017-06-16] MEDS ORDERED: *HR* FentaNYL (PF) 100 MCG/2 ML VIAL ONE ×2 (14:13→18:30)
[2017-06-16] MEDS ORDERED: Lidocaine -MPF 2% 2 ML VIAL ONE (18:33)
[2017-06-16] MEDS ORDERED: *HR* Rocuronium Bromide 50 MG/5 ML VIAL ONE (18:35)
[2017-06-16] MEDS ORDERED: Clindamycin 900 MG/50 ML 900 MG/50 ML IV.SOLN IVPB ONE (19:00)
[2017-06-16] MEDS ORDERED: EPHEDrine 50 MG/ML VIAL ONE (19:11)
[2017-06-16] MEDS ORDERED: Neostigmine Methylsulfate 3 MG/3 ML SYRINGE ONE (19:50)
[2017-06-16] MEDS ORDERED: Ondansetron 4 MG/2 ML VIAL ONE (19:50)
[2017-06-16] MEDS ORDERED: *HR* HYDROmorphone (PF) 1 MG/ML SYRINGE IVP PRN (19:57)
--- NOTE | 2017-06-16 20:12 | Operative Note ---
Date of procedure: 06/16/17 Pre-op diagnosis: Colovaginal fistula Post-op diagnosis: same Procedure: Laparoscopic diverting colostomy Anesthesia: MIKAELA Surgeon: Carlos Morris Estimated blood loss (cc): 5 Condition: stable Disposition: floor Procedure in Detail: After informed consent, the patient was taken the operating room placed in the supine position.After adequate sedation and anesthesia the abdomen was prepped and draped. A 5 mm cannulas placed on the right abdomen under direct visualization. Pneumoperitoneum was recreated. 2 additional cannulas were placed in the abdomen under direct visualization. Patient was placed in headdown and right lateral rotation. 2 graspers used to pull the small bowel the pelvis. Is able to identify the sigmoid colon and rectal junction. Once identified a window was created. A 60 mm jesus echelon stapler was used to divide the rectosigmoid junction. The proximal colon was then grasped. An end ostomy opening was created in the left abdominal wall. The sigmoid was brought up to the skin level. Staple line was removed and a [place] and colostomy was created. Pneumoperitoneum was evacuated from the abdomen. The 12 mm cannula site was closed with Vicryl suture. Skin was closed karin.
--- NOTE | 2017-06-16 21:09 | Anesthesia Evaluation Post Op ---
Date of Encounter: 06/16/17 Time of Encounter: 21:00 - Vital Signs Vital Signs: Vital Signs/O2 Sat/Glucose, Most Current Temp Pulse Resp BP Pulse Ox 06/16/17 20:57 97.6 F 68 18 117/72 95 06/16/17 20:47 69 20 126/77 96 06/16/17 20:37 98.2 F 73 22 130/63 95 06/16/17 20:27 63 16 123/75 100 06/16/17 20:17 65 14 105/65 100 06/16/17 20:07 97.6 F 60 12 98/62 100 - Lungs Lungs: Clear Ascult./Percussion - Airway Airway: Non-obstructed - Cardiovascular Regular Rate - Mental Status Mental Status: Alert & Oriented, Answers Appropriately - Pain Pain Scale: 0 - Nausea Vomiting Nausea Vomiting: Not Present - Hydration Hydration: NPO - Discharge PostOp Status: Transfer Patient to floor
[2017-06-16] MEDS ORDERED: 0.9 % Sodium Chloride 1,000 ML IVC SCH (22:03)
[2017-06-16] MEDS ORDERED: *HR* Morphine 2 MG/ML SYRINGE IVP PRN (22:03)
[2017-06-16] MEDS ORDERED: Naloxone 0.4 MG/ML INJ IVP PRN (22:03)
[2017-06-16] MEDS ORDERED: Acetaminophen 325 MG TABLET PO PRN (22:03)
[2017-06-17] MEDS: Ibuprofen 400 MG TABLET PO PRN ×2 (00:36→08:51)
[2017-06-17 04:55] LABS: BUN/Creatinine Ratio 9 (6-26); Blood Urea Nitrogen 5 mg/dL (8-23); Calcium 8.5 mg/dL (8.6-10.3); Carbon Dioxide 26 mEq/L (23-29); Chloride 103 mEq/L (98-107); Glucose 114 mg/dL (70-105); Osmolality,Calculated 280 (280-300); Potassium 3.7 mEq/L (3.5-5.1); Sodium 136 mEq/L (136-145); eGFR For African Americans > 60 (> 60); eGFR For Non-African Americans > 60 (> 60)
[2017-06-17 05:04] LABS: Basophils % 0.2 %; Eosinophils # 0.1 K/mcL (0.0-0.6); Eosinophils % 0.6 %; Hemoglobin 11.7 g/dL (11.5-15.4); Immature Granulocytes % 0.5 % (0-4); Lymphocytes # 1.2 K/mcL (0.6-4.6); Lymphocytes % 9.8 %; Mean Corpuscular HGB Conc 31.6 g/dL (31.6-35.5); Mean Corpuscular Hemoglobin 27.4 pg (28.0-33.3); Mean Corpuscular Volume 86.7 fL (83.0-100.0); Mean Platelet Volume 9.6 fL (9.4-12.4); Monocytes # 0.7 K/mcL (0.0-1.3); Monocytes % 5.8 %; Neutrophils # 10.2 K/mcL (1.6-8.9); Platelet Count 234 K/mcL (140-400); Red Blood Count 4.27 M/mcL (3.82-4.97); Red Cell Distribution Width 13.5 % (11.5-14.5); Segmented Neutrophils % 83.1 %
[2017-06-17] MEDS: *HR* Enoxaparin 40 MG/0.4 ML SYRINGE SQ SCH (05:38)
[2017-06-17] MEDS: Magnesium Oxide 400 MG TABLET PO SCH (08:42)
[2017-06-17] MEDS: Ascorbic Acid 500 MG TABLET PO SCH (08:42)
[2017-06-17] MEDS ORDERED: Triamcinolone Acet 0.1% CRM 15 GM TUBE TP SCH (09:00)
[2017-06-17] MEDS ORDERED: *HR* HYDROcodone/Acet 5/325 mg TABLET PO PRN (10:25)
--- NOTE | 2017-06-17 11:13 | Internal Med Progress Note ---
Date of Encounter: 06/17/17 Time of Encounter: 11:25 - Assessment and plan (1) Rectovaginal fistula Current Visit: Yes Status: Acute Assessment and plan: Surgeries following. EDI SPECIALIST remove the pessary during this hospitalization. Status post diverting colostomy. Postoperative day #1. Surgery is following. (2) Urinary tract infection Current Visit: Yes Status: Acute Assessment and plan: Continue with Cipro. This would be day 7 of antibiotics. Cultures grew Escherichia coli. Qualifiers: Urinary tract infection type: site unspecified Hematuria presence: without hematuria Qualified Code(s): N39.0 - Urinary tract infection, site not specified (3) Hypertension Current Visit: Yes Status: Chronic Assessment and plan: This is per history. The blood pressure is stable. I do not see the patient is on any antihypertensives. We will continue to monitor. Qualifiers: Hypertension type: unspecified secondary hypertension Qualified Code(s): I15.9 - Secondary hypertension, unspecified; I15 - Secondary hypertension (4) Dementia Current Visit: Yes Status: Chronic Assessment and plan: per hx. pleasantly confused. Mentation at baseline. Supportive care. We will make sure that she receives Haldol and schedule. Qualifiers: Dementia type: Alzheimer's disease Alzheimer's disease onset: late-onset Dementia behavioral disturbance: without behavioral disturbance Qualified Code (s): G30.1 - Alzheimer's disease with late onset; F02.80 - Dementia in other diseases classified elsewhere without behavioral disturbance; F02.80 - Dementia in other diseases classified elsewhere without behavioral disturbance; F02.80 - Dementia in other diseases classified elsewhere without behavioral disturbance (5) Hypothyroidism Current Visit: Yes Status: Chronic Assessment and plan: continue Levothyroxine; Qualifiers: Hypothyroidism type: unspecified Qualified Code(s): E03.9 - Hypothyroidism , unspecified (6) Rhabdomyolysis Current Visit: Yes Status: Resolved Assessment and plan: Stop IV fluids. This is improving. Qualifiers: Rhabdomyolysis type: non-traumatic Qualified Code(s): M62.82 - Rhabdomyolysis (7) Retained vaginal foreign body Current Visit: Yes Status: Resolved Assessment and plan: The pessary was removed earlier in the stay. Appreciate EDI SPECIALIST help Qualifiers: Encounter type: initial encounter Qualified Code(s): T19.2XXA - Foreign body in vulva and vagina, initial encounter (8) DVT prophylaxis Current Visit: Yes Status: Acute Assessment and plan: Lovenox - Subjective Interval history: No acute events. She is status post laparoscopic beverage and colostomy. There is no complications. Daughter is at bedside and is upset that the patient did not receive Haldol yesterday. I listened and reassured her that she would be receiving it on schedule. She has been afebrile. Has had not had output out of her ostomy. - Constitutional Vitals: Temp Pulse Resp BP Pulse Ox 98.9 F 94 18 112/73 97 06/17/17 06:38 06/17/17 06:38 06/17/17 08:26 06/17/17 06:38 06/17/17 08:26 General appearance: Present: A&O X 2, pleasant. Absent: answers questions appropriately Exam: GEN: NAD. Alert to self only CVS: RRR. S1, S2, No m/r/g RESP: CTAB ABD: Soft, NT, ND, hypoactive bowel sounds. Ostomy noted. EXT: No edema. 2+ DP. No rashes NEURO: Nonfocal Internal Medicine: Result - Labs CBC & Chem 7: 06/17/17 04:11 06/17/17 04:11 Labs: Short CBC 06/17/17 Range/Units 04:11 WBC 12.3 H D (4.3-11.1) K/mcL Hgb 11.7 (11.5-15.4) g/dL Hct 37.0 (35.3-44.9) % Plt Count 234 (140-400) K/mcL Neutrophils # 10.2 H (1.6-8.9) K/mcL BMP 06/17/17 04:11 Sodium 136 Potassium 3.7 Chloride 103 Carbon Dioxide 26 BUN 5 L Creatinine 0.56 L Glucose 114 H Calcium 8.5 L - VTE Documentation of Mechanical Device: Intermittent pneumatic compression device Consult Discharge Plan - Plan Referrals: Sharonda Bender, EXPORT DOCUMENTS CLERK [Primary Care Provider] -
--- NOTE | 2017-06-17 12:28 | General Surgery Progress Note ---
Date of Encounter: 06/17/17 Time of Encounter: 12:00 - Assessment and Plan (1) Rectovaginal fistula Current Visit: Yes Status: Acute POD #1 from a robotic assisted diverting colostomy with Dr. Morris for a colovaginal fistula (secondary to retained pessary placed 01/2015) Pessary removed per TOLL TESTBOARD WORKER Regular diet Supportive care Saline lock May discharge to ECF from a surgical standpoint when the patient is medically stable. (2) Retained vaginal foreign body Current Visit: Yes Status: Resolved Pessary removed per TOLL TESTBOARD WORKER on 06/11/17 Qualifiers: Encounter type: initial encounter Qualified Code(s): T19.2XXA - Foreign body in vulva and vagina, initial encounter (3) Rhabdomyolysis Current Visit: Yes Status: Resolved CK- improved Management per hospitalist Qualifiers: Rhabdomyolysis type: non-traumatic Qualified Code(s): M62.82 - Rhabdomyolysis (4) Urinary tract infection Current Visit: Yes Status: Acute Urine culture- ecoli PO cipro Management per hospitalist Qualifiers: Urinary tract infection type: site unspecified Hematuria presence: without hematuria Qualified Code(s): N39.0 - Urinary tract infection, site not specified (5) Physical deconditioning Current Visit: Yes Status: Chronic Recommend ECF placement at discharge guest services attendant consulted (6) Ulcer of right heel Current Visit: Yes Status: Chronic Followed by Dr. Maldonado in wound care Wound care orders- Betadine paint to the unstageable areas to control the bioburden and cover the area with gauze. Wrap with kerlex gauze. She is to practice aggressive pressure-relief with heel medics boots and aggressive pressure-relief with pillows under the right calf. Qualifiers: Non-pressure ulcer stage: unspecified non-pressure ulcer stage Qualified Code(s): L97.419 - Non-pressure chronic ulcer of right heel and midfoot with unspecified severity Subjective Patient reports: no new complaints, tolerating a regular diet, no flatus, no bowel movement, afebrile, other (Patient pleasantly confused and denies any incisional discomfort this morning.) Objective Vital Signs - Last 8 Hours Temp Pulse Resp BP Pulse Ox 06/17/17 11:05 97.4 F L 80 18 113/74 100 06/17/17 08:26 18 97 06/17/17 06:38 98.9 F 94 18 112/73 97 Intake and Output 06/16/17 06/17/17 06/17/17 23:59 07:59 15:59 Intake Total 0 / 0 500 / 500 Output Total 305 / 305 700 / 700 200 / 200 Balance -305 / -305 -700 / -700 300 / 300 Intake: Oral 0 / 0 500 / 500 Output: Urine 0 / 0 Stool 0 / 0 Estimated Blood Loss 5 / 5 Urine Amount (Catheter) 300 / 300 Catheter 700 / 700 200 / 200 Other: Meal Breakfast Percent of Meal Consumed 100% Weight 72.6 kg Blood Glucose* 94 Patient Weight 06/17/17 23:59 Weight 72.6 kg - General physical appearance no distress, no pain, other (pleasantly confused) - Eyes PERRL, normal ocular movement - ENT normal mucosa, poor nursing home, atraumatic, normocephalic - Neck Neck exam: trachea midline - Respiratory normal respiratory effort, clear to auscultation - Cardiovascular Cardiovascular exam: Present: RRR - Abdomen Abdomen: Present: bowel sounds present, soft, non tender, wound (ostomy is pink and moist with small amount of serousang. drainage noted.) - Incision Incision: Present: clean and dry - Genitourinary other (long catheter to SD with clear, yellow urine noted) - Neurologic CN 2-12 grossly intact - Musculoskeletal other (severe deconditioning noted) - Psychiatric oriented to person, oriented to place, speech is normal - Labs 06/17/17 04:11 06/17/17 04:11 Diabetes panel 06/17/17 Range/Units 04:11 Sodium 136 (136-145) mEq/L Potassium 3.7 (3.5-5.1) mEq/L Chloride 103 (98-107) mEq/L Carbon Dioxide 26 (23-29) mEq/L BUN 5 L (8-23) mg/dL Creatinine 0.56 L (0.60-1.20) mg/dL Glucose 114 H (70-105) mg/dL Calcium 8.5 L (8.6-10.3) mg/dL Calcium panel 06/17/17 Range/Units 04:11 Calcium 8.5 L (8.6-10.3) mg/dL Pituitary panel 06/17/17 Range/Units 04:11 Sodium 136 (136-145) mEq/L Potassium 3.7 (3.5-5.1) mEq/L Chloride 103 (98-107) mEq/L Carbon Dioxide 26 (23-29) mEq/L BUN 5 L (8-23) mg/dL Creatinine 0.56 L (0.60-1.20) mg/dL Glucose 114 H (70-105) mg/dL Calcium 8.5 L (8.6-10.3) mg/dL Adrenal panel 06/17/17 Range/Units 04:11 Sodium 136 (136-145) mEq/L Potassium 3.7 (3.5-5.1) mEq/L Chloride 103 (98-107) mEq/L Carbon Dioxide 26 (23-29) mEq/L BUN 5 L (8-23) mg/dL Creatinine 0.56 L (0.60-1.20) mg/dL Glucose 114 H (70-105) mg/dL Calcium 8.5 L (8.6-10.3) mg/dL - VTE Documentation of Mechanical Device: Intermittent pneumatic compression device Consult Discharge Plan - Plan Additional Instructions: #1 may shower 06/18/17, no tub bath for 2 weeks #2 wash incisions with soap and water and pat dry daily #3 no lifting, pushing, pulling more than 15 pounds for the next 4 weeks #4 no driving until off narcotics for 24 hours and able to safely react in the car #5 may climb stairs Ostomy care- change ostomy appliance every 5-7 days and as needed if leaking. Prescription written for ostomy supplies. Empty ostomy bag as needed when 1/3 full. Heel ulcer- Followed by Dr. Maldonado in wound care Wound care orders- Betadine paint to the unstageable areas to control the bioburden and cover the area with gauze. Wrap with kerlex gauze. She is to practice aggressive pressure-relief with heel medics boots and aggressive pressure-relief with pillows under the right calf. Referrals: Sharonda Bender CNP [Primary Care Provider] - Eli Valencia CNP [Advanced Practice Nurse] - 07/04/17 1:00 pm (surgery follow-up) - Attending Attestation For this encounter, I have reviewed the BOATS RENTER or PA documentation, treatment plan, and medical decision making; and I have had face to face time with this patient.
[2017-06-18 04:28] LABS: Basophils % 0.3 %; Eosinophils # 0.2 K/mcL (0.0-0.6); Eosinophils % 2.5 %; Hematocrit 34.8 % (35.3-44.9); Hemoglobin 11.2 g/dL (11.5-15.4); Immature Granulocytes % 0.5 % (0-4); Lymphocytes # 1.4 K/mcL (0.6-4.6); Lymphocytes % 16.1 %; Mean Corpuscular HGB Conc 32.2 g/dL (31.6-35.5); Mean Corpuscular Hemoglobin 27.5 pg (28.0-33.3); Mean Corpuscular Volume 85.5 fL (83.0-100.0); Mean Platelet Volume 9.7 fL (9.4-12.4); Monocytes # 0.6 K/mcL (0.0-1.3); Monocytes % 6.8 %; Neutrophils # 6.6 K/mcL (1.6-8.9); Platelet Count 210 K/mcL (140-400); Red Blood Count 4.07 M/mcL (3.82-4.97); Red Cell Distribution Width 13.4 % (11.5-14.5); Segmented Neutrophils % 73.8 %
[2017-06-18 04:42] LABS: BUN/Creatinine Ratio 9 (6-26); Blood Urea Nitrogen 6 mg/dL (8-23); Calcium 8.4 mg/dL (8.6-10.3); Carbon Dioxide 26 mEq/L (23-29); Chloride 99 mEq/L (98-107); Glucose 115 mg/dL (70-105); Osmolality,Calculated 273 (280-300); Potassium 3.8 mEq/L (3.5-5.1); Sodium 132 mEq/L (136-145); eGFR For African Americans > 60 (> 60); eGFR For Non-African Americans > 60 (> 60)
[2017-06-18] MEDS: *HR* Enoxaparin 40 MG/0.4 ML SYRINGE SQ SCH (06:11)
[2017-06-18 06:52] VITALS: BP 126/84
--- NOTE | 2017-06-18 09:20 | Discharge Summary ---
Date of Encounter: 06/18/17 Time of Encounter: 09:00 - Discharge Diagnosis (1) Rectovaginal fistula Priority: Primary Status: Acute (2) Urinary tract infection Priority: Primary Status: Acute Qualifiers: Urinary tract infection type: site unspecified Hematuria presence: without hematuria Qualified Code(s): N39.0 - Urinary tract infection, site not specified (3) Hypertension Priority: Secondary Status: Chronic Qualifiers: Hypertension type: unspecified secondary hypertension Qualified Code(s): I15.9 - Secondary hypertension, unspecified; I15 - Secondary hypertension (4) Dementia Priority: Secondary Status: Chronic Qualifiers: Dementia type: Alzheimer's disease Alzheimer's disease onset: late-onset Dementia behavioral disturbance: without behavioral disturbance Qualified Code (s): G30.1 - Alzheimer's disease with late onset; F02.80 - Dementia in other diseases classified elsewhere without behavioral disturbance; F02.80 - Dementia in other diseases classified elsewhere without behavioral disturbance; F02.80 - Dementia in other diseases classified elsewhere without behavioral disturbance (5) Hypothyroidism Priority: Secondary Status: Chronic Qualifiers: Hypothyroidism type: unspecified Qualified Code(s): E03.9 - Hypothyroidism , unspecified (6) Rhabdomyolysis Priority: Primary Status: Resolved Qualifiers: Rhabdomyolysis type: non-traumatic Qualified Code(s): M62.82 - Rhabdomyolysis (7) Retained vaginal foreign body Priority: Primary Status: Resolved Qualifiers: Encounter type: initial encounter Qualified Code(s): T19.2XXA - Foreign body in vulva and vagina, initial encounter - Discharge Medications Prescriptions: HYDROcodone/Acet 5/325 mg [[place] 5-325 mg] 1 tab PO Q6HR PRN #10 tablet PRN Reason: Breakthrough Pain Haloperidol [Haldol] 1 mg PO BID #30 tablet Home Medications: Albuterol Sulfate [Ventolin Hfa] 2 puff IH Q4-6H PRN 06/10/16 [History] Docusate [Colace] 100 mg PO DAILY 06/10/16 [History] Ferrous Sulfate [Iron] 325 mg PO TID 06/10/16 [History] Levothyroxine [Synthroid] 75 mcg PO 0630 06/10/16 [History] Folic Acid 1 mg PO DAILY #90 tablet 06/17/16 [Rx] Ascorbic Acid [Vitamin C] 250 mg PO DAILY 08/18/16 [History] Cyclobenzaprine [Flexeril] 10 mg PO TID PRN 08/18/16 [History] Haloperidol [Haldol] 1 mg PO BID 08/18/16 [History] Omeprazole [PriLOSEC] 40 mg PO DAILY 06/11/17 [History] HYDROcodone/Acet 5/325 mg [[place] 5-325 mg] 1 tab PO Q6HR PRN #10 tablet [Rx] Haloperidol [Haldol] 1 mg PO BID #30 tablet 06/18/17 [Rx] Allergies/Adverse Reactions: 3 Allergy/AdvReac Type Severity Reaction Status Date / Time Penicillins [PCN] Allergy Unknown Rash Verified 06/10/17 12:59 Date of admission: 06/15/17 13:39 Primary care physician: Sharonda Bender CNP - Patient Status Disposition: Transfer SNF Overall status at discharge: patient is progressing back to baseline - Discharge Instructions Follow Up With: Eli Valencia CNP [Advanced Practice Nurse] - 07/04/17 1:00 pm (surgery follow-up) Sharonda Bender CNP [Primary Care Provider] - Additional Instructions: #1 may shower 06/18/17, no tub bath for 2 weeks #2 wash incisions with soap and water and pat dry daily #3 no lifting, pushing, pulling more than 15 pounds for the next 4 weeks #4 no driving until off narcotics for 24 hours and able to safely react in the car #5 may climb stairs Ostomy care- change ostomy appliance every 5-7 days and as needed if leaking. Prescription written for ostomy supplies. Empty ostomy bag as needed when 1/3 full. Heel ulcer- Followed by Dr. Maldonado in wound care Wound care orders- Betadine paint to the unstageable areas to control the bioburden and cover the area with gauze. Wrap with kerlex gauze. She is to practice aggressive pressure-relief with heel medics boots and aggressive pressure-relief with pillows under the right calf. - Diet and Activity Activity: resume usual activities as tolerated Diet: regular diet Hospital course: Ms. Langston is a 76 year old female who presented with a fall. Found to have rectovaginal fistula complicated by UTI and mild rhabdo. She lives at home by herself and has moderate dementia. Day prior to admission, she fell on her right hip and daughter went to check on her and found her on the floor for over 12 hours. work up in the ED was negative for any fractures are acute findings on his CT head. There was no fractures on a pelvis x-ray. He underwent a CT abdomen and pelvis which showed a rectovaginal fistula which was an incidental finding. There was also foreign body found in the vagina. The foreign body was noted to be a pessary which was removed by [employer] MILL TENDER. Regarding her rectovaginal fistula consult was surgery and she underwent a diverting colostomy. We continued the patient on IV hydration and treated for urinary tract infection she was hospitalized and she finished about 9 days of Cipro. She had a urine that was positive for Escherichia coli. She was tolerating diet and was discharged to [facility]2017. - Time Spent with Patient Total time spent providing and/or coordinating discharge services: Greater than 30 minutes - Constitutional Vitals: Temp Pulse Resp BP Pulse Ox 98.1 F 95 16 126/84 95 06/18/17 06:51 06/18/17 06:51 06/18/17 07:51 06/18/17 06:51 06/18/17 07:51 General appearance: Present: A&O X 2, pleasant. Absent: answers questions appropriately Exam: GEN: NAD. Alert to self only CVS: RRR. S1, S2, No m/r/g RESP: CTAB ABD: Soft, NT, ND, hypoactive bowel sounds. Ostomy noted. EXT: No edema. 2+ DP. No rashes NEURO: Nonfocal - VTE Documentation of Mechanical Device: Intermittent pneumatic compression device
--- NOTE | 2017-06-18 09:34 | Physician Discharge Referral ---
ExtendedCare Referral Info Institutional Level of Care: Skilled - Diagnosis (1) Rectovaginal fistula Priority: Primary Status: Acute (2) Urinary tract infection Priority: Primary Status: Acute (3) Hypertension Priority: Secondary Status: Chronic (4) Dementia Priority: Secondary Status: Chronic (5) Hypothyroidism Priority: Secondary Status: Chronic (6) Rhabdomyolysis Priority: Primary Status: Resolved (7) Retained vaginal foreign body Priority: Primary Status: Resolved - Transfer Medications Prescriptions: HYDROcodone/Acet 5/325 mg [[place] 5-325 mg] 1 tab PO Q6HR PRN #10 tablet PRN Reason: Breakthrough Pain Haloperidol [Haldol] 1 mg PO BID #30 tablet Home Medications: Albuterol Sulfate [Ventolin Hfa] 2 puff IH Q4-6H PRN 06/10/16 [History] Docusate [Colace] 100 mg PO DAILY 06/10/16 [History] Ferrous Sulfate [Iron] 325 mg PO TID 06/10/16 [History] Levothyroxine [Synthroid] 75 mcg PO 0630 06/10/16 [History] Folic Acid 1 mg PO DAILY #90 tablet 06/17/16 [Rx] Ascorbic Acid [Vitamin C] 250 mg PO DAILY 08/18/16 [History] Cyclobenzaprine [Flexeril] 10 mg PO TID PRN 08/18/16 [History] Haloperidol [Haldol] 1 mg PO BID 08/18/16 [History] Omeprazole [PriLOSEC] 40 mg PO DAILY 06/11/17 [History] HYDROcodone/Acet 5/325 mg [[place] 5-325 mg] 1 tab PO Q6HR PRN #10 tablet [Rx] Haloperidol [Haldol] 1 mg PO BID #30 tablet 06/18/17 [Rx] Allergies/Adverse Reactions: 3 Allergy/AdvReac Type Severity Reaction Status Date / Time Penicillins [PCN] Allergy Unknown Rash Verified 06/10/17 12:59 - Respiratory Orders Smoking Cessation: Smoking cessation has been advised. For more information, call the [place] Tobacco Quit Line at 5-100-YABL-NOW. - Diet Orders Regular CERTIFICATION: I certify that the transfer of the above named patient to an Extended Care Facility is necessary for the continuing treatment of the diagnosis listed. The above information is true and accurate reflection of patient's current condition. Confidential - Redisclosure prohibited without a patient's written consent.
[2017-06-18] MEDS: Magnesium Oxide 400 MG TABLET PO SCH (10:43)
[2017-06-18] MEDS: Ascorbic Acid 500 MG TABLET PO SCH (10:44)
== END 2017-06-18 13:58 | DRG 330 ==
LOC: EMEROO 12:50 → 3ANU 12:50
PROVIDERS: ADMIT Internal Medicine; ATTEND Internal Medicine

== ENCOUNTER 2018-02-11 14:59 | Observation (INO) ==
[2018-02-11] MEDS ORDERED: 0.9 % Sodium Chloride 1,000 ML IVC ONE ×2 (15:12→15:57)
--- NOTE | 2018-02-11 15:18 | Emergency Department Note ---
Disposition Clinical Impression: Severe sepsis Altered mental status Qualifiers: Altered mental status type: unspecified Qualified Code(s): R41.82 - Altered mental status, unspecified UTI (urinary tract infection) Qualifiers: Urinary tract infection type: site unspecified Hematuria presence: without hematuria Qualified Code(s): N39.0 - Urinary tract infection, site not specified Disposition: Admitted As Inpatient Condition: Fair Time of Disposition: 16:33 General Adult HPI - General Chief complaint: ED General Medical Stated complaint: Elevated Temp Time Seen by Provider: 02/11/18 15:02 Source: family Mode of arrival: EMS Limitations: altered mental status Nursing Notes Reviewed: Yes Vital Signs Reviewed: Yes - History of Present Illness HPI Narrative: 77-year-old female persists for evaluation of elevated temperature. Patient is on hospice. Patient family at bedside provided history. States the patient has been increasingly few starting this morning. Patient was noted have a temperature of 103 at [facility]. Daughter states that the patient has had increasing cough and mucus production with the past couple days. Also note the patient's had decreased urine output and decreased stool output and was complaining of abdominal pain prior to arrival. Patient also has a history of dementia however her altered mental status is acutely worse. Daughter denies of those any chest pain or shortness of breath noted. Patient did not receive any anti-inflammatories prior to ED arrival. Daughter states the patient's goals of care are no intubations or chest compressions. However the daughter states that the patient would like symptomatic treatment with IV fluids and antibiotics. Pain Scale: 0 - Related Data Home Medications Medication Instructions Recorded Confirmed Albuterol Sulfate [Ventolin Hfa] 2 puff IH Q4H PRN 06/10/16 02/11/18 Docusate [Colace] 100 mg PO DAILY 06/10/16 02/11/18 Levothyroxine [Synthroid] 75 mcg PO 0630 06/10/16 02/11/18 Ascorbic Acid [Vitamin C] 250 mg PO DAILY 08/18/16 02/11/18 Haloperidol [Haldol] 1 mg PO 1600 08/18/16 02/11/18 Omeprazole [PriLOSEC] 40 mg PO DAILY 06/11/17 02/11/18 LORazepam [Ativan] 0.25 mg PO 1600 08/15/17 02/11/18 Guaifenesin [Mucus Relief] 600 mg PO BID 02/11/18 02/11/18 HYDROcodone/Acet 5/325 mg [[place] 1 tab PO 0800,1400,2000 PRN 02/11/18 02/11/18 5-325 mg] Haloperidol [Haldol] 0.5 mg PO 0800 02/11/18 02/11/18 Lactulose 20 gm PO BID PRN 02/11/18 02/11/18 MORPHINE SUL Oral CONC [Roxanol 10 mg PO Q4H PRN 02/11/18 02/11/18 Oral Conc] Melatonin 5 mg PO HS 02/11/18 02/11/18 Multivitamin [One Daily 1 tab PO DAILY 02/11/18 02/11/18 Multivitamin] Potassium Chloride [Klor-Con 10] 10 meq PO DAILY 02/11/18 02/11/18 Promethazine [Phenergan] 25 mg IM ONCE PRN 02/11/18 02/11/18 Sennosides [Senna] 8.6 mg PO BID 02/11/18 02/11/18 Previous Rx's Medication Instructions Recorded Folic Acid 1 mg PO DAILY #90 tablet 06/17/16 Allergies Allergy/AdvReac Type Severity Reaction Status Date / Time Penicillins [PCN] Allergy Unknown Rash Verified 02/11/18 16:16 All systems ED: reviewed and negative except as stated. Constitutional: Reports: fever Cardiovascular: Denies: chest pain Respiratory: Reports: cough. Denies: dyspnea Gastrointestinal: Reports: abdominal pain. 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 Absent: miosis, mydriasis - ENT ENT exam: normal exam, mucous membranes dry - Neck Neck exam: Present: normal inspection, trachea midline - Chest Chest inspection: Present: normal inspection, symmetric chest wall rise - Respiratory Respiratory exam: Present: other (Diffusely diminished). Absent: respiratory distress, accessory muscle use - Cardiovascular Cardiovascular exam: Present: normal rhythm, tachycardia. Absent: systolic murmur - Abdominal Exam Abdominal exam: Present: soft, distention, other (colonstomy in place). Absent : guarding, rebound - Extremities Exam Extremities exam: Present: normal inspection. Absent: pedal edema - Expanded Lower Extremity Exam Neurovascular/Tendon exam: Present: normal capillary refill - Neurological Exam Neurological exam: Present: alert. Absent: oriented X3 - Skin Skin exam: Present: warm, dry, intact, normal color Course - Reevaluation(s) Reevaluation #1: Patient's lactate came back elevated. Patient does meet severe sepsis criteria. Patient's hemodynamically stable. Patient is on broad-spectrum antibiotics. Cultures obtained. Source is unknown at this point. Time: 15:58 Reevaluation #2: Patient's repeat exam shows patient's warm and well-perfused. Vital stable. Plan of care discussed with the family. Brisk cap refill. Time: 17:42 Vital Signs Temperature 99.2 F 02/11/18 15:02 Pulse Rate 120 02/11/18 15:02 Respiratory Rate 22 02/11/18 15:02 Blood Pressure 104/77 02/11/18 15:02 O2 Sat by Pulse Oximetry 97 02/11/18 15:02 Temperature 98.6 F 02/11/18 18:00 Pulse Rate 117 02/11/18 18:00 Respiratory Rate 28 02/11/18 18:00 Blood Pressure 99/63 02/11/18 18:00 O2 Sat by Pulse Oximetry 96 02/11/18 18:00 Oxygen Delivery Oxygen Delivery Room Air Medical Decision Making - [facility] Narrative Medical decision making narrative: Patient presents with severe sepsis. Patient is tachycardic as well as febrile. Patient's blood pressures been maintained. Patient does have an elevated lactate and was fluid resuscitated with crystalloid. Concerns of fluid overloading 77-year-old female with a known cardiovascular status. Patient had titrated fluid boluses. Patient was also started most appropriate antibiotics and was started with broad-spectrum antibiotics given concerns for sepsis. Sources likely in the urine however the patient does have a pending CT scan abdomen pelvis as well as a CT of the head. Patient's mental status also likely secondary to the UTI. - Lab Data Lab results reviewed: Yes I reviewed the patient's lab results. Result diagrams: 02/11/18 15:25 02/11/18 15:25 Lab Results 02/11/18 02/11/18 02/11/18 Range/Units 15:25 15:25 15:25 WBC 12.7 H (4.3-11.1) K/mcL RBC 4.32 (3.82-4.97) M/mcL Hgb 12.9 (11.5-15.4) g/dL Hct 38.6 (35.3-44.9) % MCV 89.4 (83.0-100.0) fL MCH 29.9 (28.0-33.3) pg MCHC 33.4 (31.6-35.5) g/dL RDW 14.1 (11.5-14.5) % Plt Count 138 L (140-400) K/mcL MPV 11.4 (9.4-12.4) fL Immature Gran % 0.6 (0-4) % Seg Neutrophils % 96.6 % Lymphocytes % 1.8 % Monocytes % 0.9 % Eosinophils % 0.0 % Basophils % 0.1 % Neutrophils # 12.2 H (1.6-8.9) K/mcL Lymphocytes # 0.2 L (0.6-4.6) K/mcL Monocytes # 0.1 (0.0-1.3) K/mcL Eosinophils # 0.0 (0.0-0.6) K/mcL Basophils # 0.0 (0.0-0.2) K/mcL PT 13.3 H (9.4-12.1) Seconds INR 1.2 APTT 25.7 L (26.0-36.0) Seconds VBG pH (7.32-7.42) pH Units VBG pCO2 (41-51) mmHg VBG pO2 (25-50) mmHg VBG HCO3 (21-27) mEq/L Sodium 139 (136-145) mEq/L Potassium 3.4 L (3.5-5.1) mEq/L Chloride 104 (98-107) mEq/L Carbon Dioxide 23 (23-29) mEq/L BUN 20 (8-23) mg/dL Creatinine 1.09 (0.60-1.20) mg/dL Est GFR ( Amer) 59 L (> 60) Est GFR (Non-Af Amer) 49 L (> 60) BUN/Creatinine Ratio 18 (6-26) Glucose 141 H (70-105) mg/dL Calculated Osmolality 293 (280-300) Lactic Acid (0.5-2.2) mmol/L Calcium 9.0 (8.6-10.3) mg/dL Phosphorus 1.4 L (2.7-4.5) mg/dL Magnesium 1.5 L (1.6-2.6) mg/dL Total Bilirubin 0.4 (0.3-1.0) mg/dL Direct Bilirubin 0.1 (0.0-0.2) mg/dL Indirect Bilirubin 0.3 (0.0-1.2) mg/dL AST 17 (13-39) Units/L ALT 10 (7-52) Units/L Alkaline Phosphatase 78 (34-104) Units/L Troponin I 0.04 H* (< 0.04) ng/mL Serum Total Protein 7.3 (6.4-8.9) g/dL Albumin 4.0 (3.5-5.7) g/dL Globulin 3.3 (2.4-3.5) g/dL Albumin/Globulin Ratio 1.2 (1.1-2.2) Lipase 18 (11-82) Units/L Urine Color (Yellow) Urine Clarity (Clear) Urine pH (5.0-8.0) pH Units Ur Specific [place] (1.010-1.025) Urine Protein (Neg-Trace) mg/dL Urine Glucose (UA) (Normal) mg/dL Urine Ketones (Negative) mg/dL Urine Blood (Negative) Urine Nitrite (Negative) Urine Bilirubin (Negative) Urine Urobilinogen (Normal) mg/dL Ur Leukocyte Esterase (Negative) Urine Microscopic RBC (0-3) per hpf Urine Microscopic WBC (0-3) per hpf Ur Squamous Epith Cells (None-Few) per lpf Urine Bacteria (None-Few) per hpf Hyaline Casts (None-Few) per lpf Ur Culture Indicated? (NO) 02/11/18 02/11/18 02/11/18 Range/Units 15:25 15:41 15:59 WBC (4.3-11.1) K/mcL RBC (3.82-4.97) M/mcL Hgb (11.5-15.4) g/dL Hct (35.3-44.9) % MCV (83.0-100.0) fL MCH (28.0-33.3) pg MCHC (31.6-35.5) g/dL RDW (11.5-14.5) % Plt Count (140-400) K/mcL MPV (9.4-12.4) fL Immature Gran % (0-4) % Seg Neutrophils % % Lymphocytes % % Monocytes % % Eosinophils % % Basophils % % Neutrophils # (1.6-8.9) K/mcL Lymphocytes # (0.6-4.6) K/mcL Monocytes # (0.0-1.3) K/mcL Eosinophils # (0.0-0.6) K/mcL Basophils # (0.0-0.2) K/mcL PT (9.4-12.1) Seconds INR APTT (26.0-36.0) Seconds VBG pH 7.38 (7.32-7.42) pH Units VBG pCO2 41 (41-51) mmHg VBG pO2 32 (25-50) mmHg VBG HCO3 24 (21-27) mEq/L Sodium (136-145) mEq/L Potassium (3.5-5.1) mEq/L Chloride (98-107) mEq/L Carbon Dioxide (23-29) mEq/L BUN (8-23) mg/dL Creatinine (0.60-1.20) mg/dL Est GFR ( Amer) (> 60) Est GFR (Non-Af Amer) (> 60) BUN/Creatinine Ratio (6-26) Glucose (70-105) mg/dL Calculated Osmolality (280-300) Lactic Acid 4.6 H* (0.5-2.2) mmol/L Calcium (8.6-10.3) mg/dL Phosphorus (2.7-4.5) mg/dL Magnesium (1.6-2.6) mg/dL Total Bilirubin (0.3-1.0) mg/dL Direct Bilirubin (0.0-0.2) mg/dL Indirect Bilirubin (0.0-1.2) mg/dL AST (13-39) Units/L ALT (7-52) Units/L Alkaline Phosphatase (34-104) Units/L Troponin I (< 0.04) ng/mL Serum Total Protein (6.4-8.9) g/dL Albumin (3.5-5.7) g/dL Globulin (2.4-3.5) g/dL Albumin/Globulin Ratio (1.1-2.2) Lipase (11-82) Units/L Urine Color Yellow (Yellow) Urine Clarity Cloudy A (Clear) Urine pH 8.0 (5.0-8.0) pH Units Ur Specific [place] 1.006 L (1.010-1.025) Urine Protein >=300 H (Neg-Trace) mg/dL Urine Glucose (UA) Normal (Normal) mg/dL Urine Ketones Negative (Negative) mg/dL Urine Blood Large H (Negative) Urine Nitrite Negative (Negative) Urine Bilirubin Negative (Negative) Urine Urobilinogen Normal (Normal) mg/dL Ur Leukocyte Esterase Large H (Negative) Urine Microscopic RBC 50-100 H (0-3) per hpf Urine Microscopic WBC TNTC H (0-3) per hpf Ur Squamous Epith Cells Many H (None-Few) per lpf Urine Bacteria Many H (None-Few) per hpf Hyaline Casts None Seen (None-Few) per lpf Ur Culture Indicated? NO. A (NO) - Radiology Data Radiology results reviewed: Yes I reviewed the patient's radiology results. Abdomen/Pelvis CT 02/11/18 15:14 IMPRESSION: 1. No acute abnormality in the abdomen or pelvis. 2. Status post partial colectomy with a diverting left lower quadrant colostomy. No complication identified. 3. Status post cholecystectomy and hysterectomy. 4. Moderate sliding hiatal hernia. D/ / Yang Echevarria MD / Yang Echevarria MD Interpreting Provider: Yang Echevarria MD Chest X-Ray 02/11/18 15:14 IMPRESSION: Patient is rotated to the right. The heart and mediastinal structures are stable. Lungs are clear. Arthritic changes of the shoulders are noted. RECOMMENDATION: No acute cardiopulmonary disease. D/ / 02/11/2018 15:50:44 Chaim Brewer MD / kevin Interpreting Provider: Chaim Brewer MD Head CT 02/11/18 15:14 IMPRESSION: No acute intracranial abnormality. D/ / Rocco Davila MD / Rocco Davila MD Interpreting Provider: Rocco Davila MD - EKG Data EKG #1 EKG attestation: Yes I reviewed and interpreted this EKG. EKG shows normal: sinus rhythm Rate: tachycardia Rhythm: NSR [place]/QRS: normal Interpretation: no acute changes, nonspecific ST-T wave changes Critical Care Time Critical Care Time: Yes Total Critical Care Time: 35 Attestation: Critical care time 35 minutes managing patient's sepsis. S.BClaudine - Sarahi Situation: Demographics Background: Presenting Complaint Assessment: Vital Signs, Patient/Family Expectation Recommendation: Barrier(s) to disposition, Recommendation based on pending studies, treatments, or consults S.B.AAshley Report Given to: Dr. Dmaian Mcclain Repor Time: 16:56 Attestation Statement - Attestation Attestation: Patient was seen with resident physician. I reviewed the history, physical, assessment and plan, and agree with the findings. I also personally evaluated this patient and had [id number] time with this patient. 77-year-old female on hospice with dementia presents to emergency department for fevers. Home health nurse that her fever was 103. She is been treated recently for cough. With the fevers and decreased mental status and decreased verbal responsiveness. She was sent to the emergency department for further evaluation and treatment. History was obtained from the family. Patient provides no history whatsoever. Review of systems as above remainder negative that the patient really could not answer questions this was done via family. Physical exam vital signs tachycardic blood pressure stable. Heart tachycardic no obvious murmurs. Lungs decreased on the right side compared to the left per my exam. Abdomen soft nontender. Extremities are unremarkable. Neurologically patient is arousable seems to move all extremities does not follow commands. Skin no rashes. Psych unable to assess. ED course. We will do full septic workup. We will also start the patient with antibiotics. Clinically patient has severe sepsis. She was given hydration and IV antibiotics. Hemodynamically she remained stable. Based on lab testing and urinalysis source is likely urine. We will admit to the hospitalist service. I agree with resident physician assessment and plan. Critical care time 35 minutes.
[2018-02-11] MEDS ORDERED: Acetaminophen 650 MG RECTAL SUPP RC ONE (15:20)
[2018-02-11 15:44] LABS: VBG HCO3 24 mEq/L (21-27); VBG PCO2 41 mmHg (41-51); VBG PH 7.38 pH Units (7.32-7.42); VBG PO2 32 mmHg (25-50)
[2018-02-11 15:50] LABS: Basophils % 0.1 %; Hematocrit 38.6 % (35.3-44.9); Hemoglobin 12.9 g/dL (11.5-15.4); Immature Granulocytes % 0.6 % (0-4); Lymphocytes # 0.2 K/mcL (0.6-4.6); Lymphocytes % 1.8 %; Mean Corpuscular HGB Conc 33.4 g/dL (31.6-35.5); Mean Corpuscular Hemoglobin 29.9 pg (28.0-33.3); Mean Corpuscular Volume 89.4 fL (83.0-100.0); Mean Platelet Volume 11.4 fL (9.4-12.4); Monocytes # 0.1 K/mcL (0.0-1.3); Monocytes % 0.9 %; Neutrophils # 12.2 K/mcL (1.6-8.9); Platelet Count 138 K/mcL (140-400); Red Blood Count 4.32 M/mcL (3.82-4.97); Red Cell Distribution Width 14.1 % (11.5-14.5); Segmented Neutrophils % 96.6 %
[2018-02-11 15:58] LABS: INR 1.2; Prothrombin Time 13.3 Seconds (9.4-12.1)
[2018-02-11] MEDS ORDERED: MetroNIDAZOLE 500 MG/100 ML 500 MG/100 ML BAG IVPB ONE (15:58)
[2018-02-11] MEDS ORDERED: Cefepime HCl 1,000 MG in 0.9 % Sodium Chloride Mini Bag 100 ML IVPB ONE (15:58)
[2018-02-11 16:01] LABS: Activated Partial Thrombo Time 25.7 Seconds (26.0-36.0)
[2018-02-11 16:03] LABS: Albumin/Globulin Ratio 1.2 (1.1-2.2); Bilirubin,Direct 0.1 mg/dL (0.0-0.2); Bilirubin,Indirect 0.3 mg/dL (0.0-1.2); Bilirubin,Total 0.4 mg/dL (0.3-1.0); Globulin 3.3 g/dL (2.4-3.5); Magnesium 1.5 mg/dL (1.6-2.6); Phosphorous 1.4 mg/dL (2.7-4.5); Potassium 3.4 mEq/L (3.5-5.1); Total Protein 7.3 g/dL (6.4-8.9)
[2018-02-11 16:08] LABS: Bilirubin,Urine Negative (Negative); Blood,Urine Large (Negative); Clarity,Urine Cloudy (Clear); Color,Urine Yellow (Yellow); Glucose,Urine (UA) Normal (Normal); Ketones,Urine Negative (Negative); Leukocyte Esterase,Urine Large (Negative); Nitrite,Urine Negative (Negative); Protein,Urine >=300 mg/dL (Neg-Trace); Specific Gravity,Urine 1.006 (1.010-1.025); Urobilinogen,Urine Normal (Normal)
[2018-02-11 16:11] LABS: Bacteria,Urine Many per hpf (None-Few); Hyaline Casts,Urine None Seen per lpf (None-Few); Squamous Epithelial Cell,Urine Many per lpf (None-Few); WBC,Urine TNTC per hpf (0-3)
[2018-02-11 16:23] LABS: RBC,Urine 50-100 per hpf (0-3)
[2018-02-11 18:35] LABS: Troponin I 0.04 ng/mL (< 0.04)
[2018-02-11] MEDS ORDERED: Naloxone 0.4 MG/ML INJ IVP PRN (20:21)
--- NOTE | 2018-02-11 20:48 | Internal Med History&Physical ---
Date of Encounter: 02/11/18 Time of Encounter: 19:00 Internal Medicine - H&P: HPI Chief complaint: Altered mental status Admitted From: Long-term Nursing Facility Plans for Post Hospital Care: Transfer Care Home Facility History of present illness: Ms. Langston is a 77 year old female. HPI: This is a hospice the patient residing at the residential facility. She has been seen developing, worsening of her mental status since yesterday afternoon. She developed a fever of 103 shortly before coming to our hospital. She has had somewhat increased her coughing and sputum production for a couple days. It is associated with her decreased fluid intake and decreased output of urine/stool. The patient seemed to be very distressed before transferring her here. They decided to give her morphine. She is not talking to me. She is not showing any signs of respiratory or pain distress. She is using supplemental oxygen at 3 L/min nasal cannula. I reviewed her medical records and talk to her daughter. The patient has had advanced dementia. She has been treated for COPD, hypertension, GERD, and hypothyroidism. She gets so haloperidol and lorazepam. She gets some Roxanol/[place]. REVIEW OF SYSTEMS: I could not obtain review of systems due to the condition mentioned above. I mentioned above, what I was able to obtain from her daughter. PHYSICAL EXAM: Skin: Free of rash and discoloration. Eyes: Sclera is white. There is no discharge from eyes. ENMT: Oral/pharyngeal mucosa is normal in appearance. There is no discharge from nose or ears. Respiratory: Normal breath sounds with no crackles and wheezes bilaterally. CV: Heart is regular with no gallop or murmur. GI: Abdomen is flat and soft with no palpable mass or visceromegaly. : There is no tenderness in patient's flanks bilaterally. Neuro exam: He has good strength in upper and lower extremities. He has normal eye movements. Psychiatric: He has normal affect. His thought process is appropriate to the situation. Additional testing: CT of head, CT of abdomen/pelvis and chest x-ray did not show any significant findings. Her UA shows changes typical for UTI. CBC shows hemoglobin of 12.9 with WBC of 12.7 thousand. BUN is 20 with creatinine of 1.9, sodium 139 and potassium 3.4. Her bicarb is 23. She has phosphorus of 1.4 with magnesium of 1.5. Lactic acid was initially 4.6; currently 2.7. Liver function tests are normal. Troponin is 0.04. A/P: This patient is developing sepsis. Likely due to urinary tract infection. She was started on IV vancomycin/IV cefepime/IV metronidazole. She got 2 L of IV fluids. I approached her daughter, who is medical power of finance attorney. I presented to her the patient's medical condition. I made her aware about the critical condition of her mother. The patient has very low chances to recover from that illness. If recovered she will be hospice patient again. The patient seems to be comfortable at this time. It is a combination of morphine and sepsis. I suggested to stop all treatments and keep her on through comfort measures only. The patient's daughter was to discuss the situation with the rest of the family. Then, she would communicate with me. I did mention above the patient's other medical problems. They will be not treated at this time. Past Med Surg Social Fam HX - Past Medical History Medical history: dementia, GERD, hypertension, thyroid disease, other Additional medical history: anemia. rheumatic fever. DJD. diverticulitis Psychiatric history: no psych history - Past Surgical History Surgical History: appendectomy, , cataract, cholecystectomy, colostomy , knee replacement, GIN/BSO Additional surgical history: right knee replacement - Social History Smoking Status: Never smoker Smokeless Tobacco Status: No Alcohol use: none Drug use: none - Family History Daughter Adopted: No Family Member Ethnicity: Non- Living Status: Still Living Hx Family Cardiac Disorders: No Hx Family Respiratory Disorders: No Hx Family Cancer: No Hx Family GI Disorders: No Hx Family Genitourinary Disorders: No Hx Family Endocrine Disorder: No Hx Family Musculoskeletal Disorders: No Hx Family Neuromuscular Disorders: No Hx Family Neurologic Disorders: No Hx Family HEENT Disorders: No Hx Family Autoimmune Disorders: No Hx Family Reproductive Disorders: No Hx Family Psychosocial Disorders: No Hx Family Medical Disorders: No Mother Name: Kisha Family Member Ethnicity: Non- Living Status: Age at : 80 Cause of : old age Father Name: Cooper Age: 80 Living Status: Age at : 80 Cause of : old age Hx Family Cardiac Disorders: No Hx Family Respiratory Disorders: No Hx Family Cancer: No Hx Family GI Disorders: No Hx Family Genitourinary Disorders: No Hx Family Endocrine Disorder: No Hx Family Musculoskeletal Disorders: No Hx Family Neuromuscular Disorders: No Hx Family Neurologic Disorders: No Hx Family HEENT Disorders: No Hx Family Autoimmune Disorders: No Hx Family Reproductive Disorders: No Hx Family Psychosocial Disorders: No Hx Family Medical Disorders: No Internal Medicine - H&P: Meds Albuterol Sulfate [Ventolin Hfa] 2 puff IH Q4H PRN 06/10/16 [History] Docusate [Colace] 100 mg PO DAILY 06/10/16 [History] Levothyroxine [Synthroid] 75 mcg PO 0630 06/10/16 [History] Folic Acid 1 mg PO DAILY #90 tablet 06/17/16 [Rx] Ascorbic Acid [Vitamin C] 250 mg PO DAILY 08/18/16 [History] Haloperidol [Haldol] 1 mg PO 1600 08/18/16 [History] Omeprazole [PriLOSEC] 40 mg PO DAILY 06/11/17 [History] LORazepam [Ativan] 0.25 mg PO 1600 08/15/17 [History] Guaifenesin [Mucus Relief] 600 mg PO BID 02/11/18 [History] HYDROcodone/Acet 5/325 mg [[place] 5-325 mg] 1 tab PO 0800,1400,2000 PRN 02/11/18 [History] Haloperidol [Haldol] 0.5 mg PO 0800 02/11/18 [History] Lactulose 20 gm PO BID PRN 02/11/18 [History] MORPHINE SUL Oral CONC [Roxanol Oral Conc] 10 mg PO Q4H PRN 02/11/18 [History] Melatonin 5 mg PO HS 02/11/18 [History] Multivitamin [One Daily Multivitamin] 1 tab PO DAILY 02/11/18 [History] Potassium Chloride [Klor-Con 10] 10 meq PO DAILY 02/11/18 [History] Promethazine [Phenergan] 25 mg IM ONCE PRN 02/11/18 [History] Sennosides [Senna] 8.6 mg PO BID 02/11/18 [History] 3 Allergy/AdvReac Type Severity Reaction Status Date / Time Penicillins [PCN] Allergy Unknown Rash Verified 02/11/18 16:16 - Constitutional Exam: xxx Internal Med - H&P Results - Labs CBC & Chem 7: 02/13/18 04:12 02/13/18 04:12 - Assessment and plan (1) Altered mental status Current Visit: Yes Status: Acute Qualifiers: Altered mental status type: unspecified Qualified Code(s): R41.82 - Altered mental status, unspecified (2) Urinary tract infection Current Visit: Yes Status: Acute Qualifiers: Urinary tract infection type: site unspecified Hematuria presence: without hematuria Qualified Code(s): N39.0 - Urinary tract infection, site not specified (3) Severe sepsis Current Visit: Yes Status: Acute (4) Acute hypokalemia Current Visit: Yes Status: Acute (5) Hypomagnesemia Current Visit: Yes Status: Acute - Time Spent With Patient Total time spent is greater than 50% in coordination of care (as documented) at patient's floor/unit and/or counseling patient: - VTE Deep Vein Thrombosis/Pulmonary Embolism Present on Admission: No - Constitutional Vitals: Temp Pulse Resp BP Pulse Ox 98.6 F 117 28 99/63 96 02/11/18 18:00 02/11/18 18:00 02/11/18 18:00 02/11/18 18:00 02/11/18 18:00 General appearance: Present: A&O X 0, no acute distress
[2018-02-11] MEDS: 0.9 % Sodium Chloride w KCl 20 MEQ/1,000 ML MLS IVC SCH (22:04)
[2018-02-11] MEDS: Pantoprazole 40 MG VIAL IVP SCH (22:15)
[2018-02-11] MEDS: Ipratropium/Albuterol Neb 3 ML IH SCH (22:32)
[2018-02-12] MEDS: Ipratropium/Albuterol Neb 3 ML IH SCH ×7 (00:12→23:26)
[2018-02-12 06:16] LABS: Basophils % 0.2 %; Eosinophils # 0.1 K/mcL (0.0-0.6); Eosinophils % 0.4 %; Hematocrit 29.7 % (35.3-44.9); Hemoglobin 9.7 g/dL (11.5-15.4); Immature Granulocytes % 1.1 % (0-4); Immature Platelets 7.4 % (1.1-6.1); Lymphocytes # 1.3 K/mcL (0.6-4.6); Lymphocytes % 6.2 %; Mean Corpuscular HGB Conc 32.7 g/dL (31.6-35.5); Mean Corpuscular Hemoglobin 29.7 pg (28.0-33.3); Mean Corpuscular Volume 90.8 fL (83.0-100.0); Mean Platelet Volume 11.4 fL (9.4-12.4); Monocytes # 1.1 K/mcL (0.0-1.3); Monocytes % 5.4 %; Neutrophils # 17.6 K/mcL (1.6-8.9); Platelet Count 136 K/mcL (140-400); Red Blood Count 3.27 M/mcL (3.82-4.97); Red Cell Distribution Width 14.6 % (11.5-14.5); Segmented Neutrophils % 86.7 %
[2018-02-12] MEDS: *HR* Enoxaparin 40 MG/0.4 ML SYRINGE SQ SCH (06:34)
[2018-02-12 06:35] LABS: BUN/Creatinine Ratio 21 (6-26); Blood Urea Nitrogen 21 mg/dL (8-23); Calcium 7.5 mg/dL (8.6-10.3); Carbon Dioxide 23 mEq/L (23-29); Chloride 110 mEq/L (98-107); Glucose 133 mg/dL (70-105); Magnesium 1.5 mg/dL (1.6-2.6); Osmolality,Calculated 295 (280-300); Potassium 3.8 mEq/L (3.5-5.1); Sodium 140 mEq/L (136-145); eGFR For Non-African Americans 55 (> 60)
[2018-02-12] MEDS: Cefepime HCl 1,000 MG in Water for inj. (sterile) 20 ML 10 ML IVP SCH ×2 (06:35→17:23)
[2018-02-12 09:23] LABS: Acinetobacter baumannii by PCR Not Detected (Not Detect); Candida albicans by PCR Not Detected (Not Detect); Candida glabrata by PCR Not Detected (Not Detect); Candida krusei by PCR Not Detected (Not Detect); Candida parapsilosis by PCR Not Detected (Not Detect); Candida tropicalis by PCR Not Detected (Not Detect); Enterobacter cloacae Cmplx PCR Not Detected (Not Detect); Enterobacteriaceae by PCR DETECTED (Not Detect); Enterococcus by PCR Not Detected (Not Detect); Escherichia coli by PCR Not Detected (Not Detect); Klebsiella oxytoca by PCR Not Detected (Not Detect); Klebsiella pneumoniae by PCR Not Detected (Not Detect); Proteus by PCR DETECTED (Not Detect); Pseudomonas aeruginosa by PCR Not Detected (Not Detect); Serratia marcescens by PCR Not Detected (Not Detect); Staphylococcus aureus by PCR Not Detected (Not Detect); Staphylococcus by PCR Not Detected (Not Detect); Streptococcus agalactiae(B)PCR Not Detected (Not Detect); Streptococcus by PCR Not Detected (Not Detect); Streptococcus pneumoniae PCR Not Detected (Not Detect); Streptococcus pyogenes (A) PCR Not Detected (Not Detect); blaKPC Carbapenem-Resist Gene Not Detected (Not Detect)
[2018-02-12] MEDS ORDERED: *HR* HYDROcodone/Acet 5/325 mg TABLET PO PRN (09:33)
[2018-02-12] MEDS ORDERED: Lactulose Oral Soln 20 GM/30 ML UDC PO PRN (09:33)
[2018-02-12] MEDS: Pantoprazole 40 MG VIAL IVP SCH (10:17)
[2018-02-12] MEDS: 0.9 % Sodium Chloride w KCl 20 MEQ/1,000 ML MLS IVC SCH (10:50)
[2018-02-12] MEDS: Acetaminophen 325 MG TABLET PO PRN ×2 (11:49→21:05)
[2018-02-12] MEDS: *HR* LORazepam 0.5 MG TABLET PO SCH (15:51)
[2018-02-12] MEDS: MORPHINE SUL Oral CONC 10 MG/0.5 ML ORAL.SYG PO PRN ×2 (17:23→23:51)
[2018-02-12] MEDS: Sennosides 8.6 MG TABLET PO SCH (21:06)
[2018-02-12] MEDS: Melatonin 3 MG TABLET PO SCH (21:06)
[2018-02-13] MEDS: Ipratropium/Albuterol Neb 3 ML IH SCH ×6 (03:59→23:22)
[2018-02-13 05:00] LABS: Basophils % 0.2 %; Eosinophils # 0.4 K/mcL (0.0-0.6); Eosinophils % 2.7 %; Hematocrit 28.6 % (35.3-44.9); Immature Granulocytes % 0.6 % (0-4); Lymphocytes # 1.2 K/mcL (0.6-4.6); Lymphocytes % 8.4 %; Mean Corpuscular HGB Conc 31.8 g/dL (31.6-35.5); Mean Corpuscular Volume 91.1 fL (83.0-100.0); Mean Platelet Volume 11.7 fL (9.4-12.4); Monocytes # 0.8 K/mcL (0.0-1.3); Monocytes % 5.4 %; Platelet Count 136 K/mcL (140-400); Red Blood Count 3.14 M/mcL (3.82-4.97); Red Cell Distribution Width 14.4 % (11.5-14.5); Segmented Neutrophils % 82.7 %
[2018-02-13 05:01] LABS: Hemoglobin 9.1 g/dL (11.5-15.4)
[2018-02-13 05:20] LABS: BUN/Creatinine Ratio 19 (6-26); Blood Urea Nitrogen 13 mg/dL (8-23); Calcium 7.8 mg/dL (8.6-10.3); Carbon Dioxide 23 mEq/L (23-29); Chloride 105 mEq/L (98-107); Glucose 90 mg/dL (70-105); Magnesium 1.9 mg/dL (1.6-2.6); Osmolality,Calculated 278 (280-300); Potassium 3.2 mEq/L (3.5-5.1); Sodium 134 mEq/L (136-145); eGFR For Non-African Americans > 60 (> 60)
[2018-02-13] MEDS: Cefepime HCl 1,000 MG in Water for inj. (sterile) 20 ML 10 ML IVP SCH (05:34)
[2018-02-13] MEDS: *HR* Enoxaparin 40 MG/0.4 ML SYRINGE SQ SCH (05:35)
[2018-02-13] MEDS ORDERED: *HR* HYDROcodone/Acet 5/325 mg TABLET PO PRN (08:56)
[2018-02-13] MEDS ORDERED: MORPHINE SUL Oral CONC 10 MG/0.5 ML ORAL.SYG PO PRN (08:56)
[2018-02-13] MEDS: Sennosides 8.6 MG TABLET PO SCH ×2 (09:32→19:48)
[2018-02-13] MEDS: Folic Acid 1 MG TABLET PO SCH (09:32)
[2018-02-13] MEDS: Cefepime HCl 2,000 MG in Water for inj. (sterile) 20 ML 20 ML IVP SCH ×2 (10:27→19:50)
[2018-02-13] MEDS: *HR* LORazepam 0.5 MG TABLET PO SCH (16:40)
[2018-02-13] MEDS: Melatonin 3 MG TABLET PO SCH (19:48)
[2018-02-14] MEDS: Ipratropium/Albuterol Neb 3 ML IH SCH ×4 (03:24→15:55)
--- NOTE | 2018-02-14 06:03 | Internal Med Progress Note ---
Hospitalist Progress Note - Encounter Date of Encounter: 02/12/18 Time of Encounter: 19:00 - Exam Vitals: Temp Pulse Resp BP Pulse Ox 98.6 F 98 18 131/75 96 02/14/18 04:31 02/14/18 04:31 02/14/18 04:31 02/14/18 04:31 02/14/18 04:31 Exam: xxx - Assessment and Plan (1) Urinary tract infection Current Visit: Yes Status: Acute (2) Severe sepsis Current Visit: Yes Status: Acute (3) Hypomagnesemia Current Visit: Yes Status: Acute (4) Debility Current Visit: Yes Status: Chronic (5) Dementia Current Visit: No Status: Chronic - Summary of Assessment and Plan Summary of Assessment and Plan: SUBJECTIVE: She was admitted very sick yesterdaywith UTI/sepsis. She is alert today; talking to her daughter. She feels hungry, would like to eat. Denies chest pain. Denies difficulty breathing, coughing and wheezing. Denies abdominal pain, nausea and vomiting. She makes good amounts of urine. She has been bedridden for a few years. She lives in a [place] [facility]. OBJECTIVE: Skin: Free of rash and discoloration. ENMT: Oral/pharyngeal mucosa is normal in appearance. Eyes: Sclera is white. There is no discharge from eyes. Respiratory: Normal breath sounds; no crackles or wheezes. CV: Heart is regular; no gallop or murmur. GI: Abdomen is soft and not tender. There is no palpable mass or visceromegaly. Neuro: There is no focal deficits. ASSESSMENT AND PLAN: UTI/sepsis. Surprisingly better. We will keep her on IV cefepime. Acute hypokalemia. Better with IV fluids containing potassium chloride. Hypomagnesemia. Will give her supplemental IV magnesium sulfate. Debility/dementia. The patient was hospice in her [place] [facility]. We will continue supportive treatments. DISPOSITION: xxx - Time Spent with Patient Total time spent is greater than 50% in coordination of care (as documented) at patient's floor/unit and/or counseling patient: Internal Medicine: Result - Labs CBC & Chem 7: 02/13/18 04:12 02/13/18 04:12 - ABG Interpretation ABG results: PT/INR, D-dimer PT 13.3 Seconds (9.4-12.1) H 02/11/18 15:25 - VTE Deep Vein Thrombosis/Pulmonary Embolism Present on Admission: No Consult Discharge Plan - Plan Referrals: Nataliia Nowak [Primary Care Provider] - (1) Urinary tract infection Qualifiers: Urinary tract infection type: site unspecified Hematuria presence: without hematuria Qualified Code(s): N39.0 - Urinary tract infection, site not specified (5) Dementia Qualifiers: Dementia type: Alzheimer's disease Alzheimer's disease onset: late-onset Dementia behavioral disturbance: without behavioral disturbance Qualified Code( s): G30.1 - Alzheimer's disease with late onset; F02.80 - Dementia in other diseases classified elsewhere without behavioral disturbance; F02.80 - Dementia in other diseases classified elsewhere without behavioral disturbance; F02.80 - Dementia in other diseases classified elsewhere without behavioral disturbance
--- NOTE | 2018-02-14 06:22 | Internal Med Progress Note ---
Hospitalist Progress Note - Encounter Date of Encounter: 02/13/18 Time of Encounter: 19:00 - Exam Vitals: Temp Pulse Resp BP Pulse Ox 98.6 F 98 18 131/75 96 02/14/18 04:31 02/14/18 04:31 02/14/18 04:31 02/14/18 04:31 02/14/18 04:31 Exam: xxx - Assessment and Plan (1) Urinary tract infection Current Visit: Yes Status: Acute (2) Severe sepsis Current Visit: Yes Status: Resolved (3) Acute hypokalemia Current Visit: Yes Status: Acute (4) Hypomagnesemia Current Visit: Yes Status: Acute (5) Debility Current Visit: Yes Status: Chronic (6) Dementia Current Visit: No Status: Chronic DVT Prophylaxis: on Lovenox - Summary of Assessment and Plan Summary of Assessment and Plan: SUBJECTIVE: The patient seems to be doing fine. With advanced her diet to regular. Denies abdominal pain, nausea and vomiting. Corral catheter is inserted. It is draining good amounts of urine. She has been bedridden for a few years. She lives in a long term. OBJECTIVE: Skin: Free of rash and discoloration. ENMT: Oral/pharyngeal mucosa is normal in appearance. Eyes: Sclera is white. There is no discharge from eyes. Respiratory: Normal breath sounds; no crackles or wheezes. CV: Heart is regular; no gallop or murmur. GI: Abdomen is soft and not tender. There is no palpable mass or visceromegaly. Neuro: There is no focal deficits. ASSESSMENT AND PLAN: UTI/sepsis. We are waiting for urine culture. She is on IV cefepime. The sepsis subsided. Acute hypokalemia. Better. She is on oral potassium chloride. Hypomagnesemia. Will monitor. She will get when necessary IV magnesium sulfate. Debility/dementia. The patient was hospice in her long term. We will continue supportive treatments. DISPOSITION: We will discharge her to a halfway facility tomorrow. We should get the results of her urine culture by that time. - Time Spent with Patient Total time spent is greater than 50% in coordination of care (as documented) at patient's floor/unit and/or counseling patient: 25 - 35 minutes Plan of Care Discussed with: family Internal Medicine: Result - Labs CBC & Chem 7: 02/13/18 04:12 02/13/18 04:12 - ABG Interpretation ABG results: PT/INR, D-dimer PT 13.3 Seconds (9.4-12.1) H 02/11/18 15:25 - VTE Deep Vein Thrombosis/Pulmonary Embolism Present on Admission: No Consult Discharge Plan - Plan Referrals: Nataliia Nowak [Primary Care Provider] - (1) Urinary tract infection Qualifiers: Urinary tract infection type: site unspecified Hematuria presence: without hematuria Qualified Code(s): N39.0 - Urinary tract infection, site not specified (6) Dementia Qualifiers: Dementia type: Alzheimer's disease Alzheimer's disease onset: late-onset Dementia behavioral disturbance: without behavioral disturbance Qualified Code( s): G30.1 - Alzheimer's disease with late onset; F02.80 - Dementia in other diseases classified elsewhere without behavioral disturbance; F02.80 - Dementia in other diseases classified elsewhere without behavioral disturbance; F02.80 - Dementia in other diseases classified elsewhere without behavioral disturbance
[2018-02-14] MEDS: *HR* Enoxaparin 40 MG/0.4 ML SYRINGE SQ SCH (06:27)
[2018-02-14] MEDS: Sennosides 8.6 MG TABLET PO SCH (08:53)
[2018-02-14] MEDS: Folic Acid 1 MG TABLET PO SCH (08:54)
[2018-02-14] MEDS: Cefepime HCl 2,000 MG in Water for inj. (sterile) 20 ML 20 ML IVP SCH (08:54)
--- NOTE | 2018-02-14 13:40 | Discharge Summary ---
- NOTES TO OUTPATIENT PROVIDER Notes to Outpatient Provider: To continue antibiotics for 5 more days. Discussed again long-term plan regarding hospice Date of Encounter: 02/14/18 Time of Encounter: 10:20 - Discharge Diagnosis (1) Urinary tract infection Priority: Primary Status: Acute Assessment and Plan: To continue IV antibiotics name D ceftriaxone for 5 more days. Culture grew Proteus Qualifiers: Urinary tract infection type: site unspecified Hematuria presence: without hematuria Qualified Code(s): N39.0 - Urinary tract infection, site not specified (2) Dementia Priority: Secondary Status: Chronic Assessment and Plan: Patient mental status at baseline. Qualifiers: Dementia type: Alzheimer's disease Alzheimer's disease onset: late-onset Dementia behavioral disturbance: without behavioral disturbance Qualified Code (s): G30.1 - Alzheimer's disease with late onset; F02.80 - Dementia in other diseases classified elsewhere without behavioral disturbance (3) Severe sepsis Priority: Primary Status: Resolved Assessment and Plan: As mentioned in plan for UTI patient will continue IV ceftriaxone (4) Hypomagnesemia Priority: Secondary Status: Resolved Assessment and Plan: Now resolved (5) Debility Priority: Secondary Status: Chronic (6) Acute hypokalemia Priority: Secondary Status: Acute Hospital course: 77-year-old female admitted from a [facility] was found to have UTI and sepsis secondary to Proteus bacteremia. Patient was treated with IV antibiotics namely vancomycin cefepime and metronidazole. After cultures sensitivity multiple antibiotics were tapered to ceftriaxone. Patient improved significantly after IV antibiotics. Occasionally had difficulty breathing and wheezing, however patient was saturating fine and her breathing symptoms were at baseline. Patient was [facility] to [facility] to continue IV ceftriaxone for 5 more days. - Time Spent with Patient Total time spent providing and/or coordinating discharge services: - Discharge Medications Prescriptions: Ceftriaxone Sodium [Ceftriaxone] 2 gm IV DAILY 5 Days #5 vial.port Enoxaparin [Lovenox] 40 mg SQ 0600 5 Days #5 syringe Haloperidol [Haldol] 0.5 mg PO 0800 5 Days #5 tablet HYDROcodone/Acet 5/325 mg [[place] 5-325 mg] 1 tab PO 0800,1400,2000 PRN 3 Days # 9 tablet PRN Reason: Pain LORazepam [Ativan] 0.25 mg PO 1600 5 Days #5 tablet Home Medications: Albuterol Sulfate [Ventolin Hfa] 2 puff IH Q4H PRN 06/10/16 [History] Docusate [Colace] 100 mg PO DAILY 06/10/16 [History] Levothyroxine [Synthroid] 75 mcg PO 0630 06/10/16 [History] Folic Acid 1 mg PO DAILY #90 tablet 06/17/16 [Rx] Ascorbic Acid [Vitamin C] 250 mg PO DAILY 08/18/16 [History] Haloperidol [Haldol] 1 mg PO 1600 08/18/16 [History] Omeprazole [PriLOSEC] 40 mg PO DAILY 06/11/17 [History] Guaifenesin [Mucus Relief] 600 mg PO BID 02/11/18 [History] Lactulose 20 gm PO BID PRN 02/11/18 [History] MORPHINE SUL Oral CONC [Roxanol Oral Conc] 10 mg PO Q4H PRN 02/11/18 [History] Melatonin 5 mg PO HS 02/11/18 [History] Multivitamin [One Daily Multivitamin] 1 tab PO DAILY 02/11/18 [History] Potassium Chloride [Klor-Con 10] 10 meq PO DAILY 02/11/18 [History] Promethazine [Phenergan] 25 mg IM ONCE PRN 02/11/18 [History] Sennosides [Senna] 8.6 mg PO BID 02/11/18 [History] Ceftriaxone Sodium [Ceftriaxone] 2 gm IV DAILY 5 Days #5 vial.port 02/14/18 [Rx] Enoxaparin [Lovenox] 40 mg SQ 0600 5 Days #5 syringe 02/14/18 [Rx] HYDROcodone/Acet 5/325 mg [[place] 5-325 mg] 1 tab PO 0800,1400,2000 PRN 3 Days # 9 tablet 02/14/18 [Rx] Haloperidol [Haldol] 0.5 mg PO 0800 5 Days #5 tablet 02/14/18 [Rx] LORazepam [Ativan] 0.25 mg PO 1600 5 Days #5 tablet 02/14/18 [Rx] Allergies/Adverse Reactions: 3 Allergy/AdvReac Type Severity Reaction Status Date / Time Penicillins [PCN] Allergy Unknown Rash Verified 02/11/18 16:16 Date of admission: 02/11/18 17:11 Primary care physician: Nataliia Nowak Consults: 02/13/18 11:11 Consult to Enamel Machine Operator [CONS] Routine Reason for SW Consult: Return to [facility] Discharging clinician: Diane Cruz Anticipated date of discharge: 02/14/18 - Constitutional Vitals: Temp Pulse Resp BP Pulse Ox 97.5 F L 88 22 145/93 98 02/14/18 11:02 02/14/18 11:02 02/14/18 11:37 02/14/18 11:02 02/14/18 11:37 General appearance: Present: A&O X 0, no acute distress Exam: xxx - Patient Status Disposition: Transfer SNF Condition: Fair Functional capacity at discharge: bed bound Overall status at discharge: patient is progressing back to baseline - Discharge Instructions Follow Up With: Nataliia Nowak [Primary Care Provider] - - Diet and Activity Activity: as per physical therapy Diet: regular diet - VTE Deep Vein Thrombosis/Pulmonary Embolism Present on Admission: No
[2018-02-14 15:23] VITALS: BP 122/79
[2018-02-14] MEDS: *HR* LORazepam 0.5 MG TABLET PO SCH (15:30)
--- NOTE | 2018-02-14 17:07 | Physician Discharge Referral ---
ExtendedCare Referral Info Provider in Charge: Diane Cruz Provider in Charge after Transfer: PCP Institutional Level of Care: Skilled - Diagnosis (1) Urinary tract infection Status: Acute (2) Dementia Status: Chronic (3) Severe sepsis Status: Resolved (4) Hypomagnesemia Status: Resolved (5) Debility Status: Chronic (6) Acute hypokalemia Status: Acute - Transfer Medications Prescriptions: Ceftriaxone Sodium [Ceftriaxone] 2 gm IV DAILY 5 Days #5 vial.port Enoxaparin [Lovenox] 40 mg SQ 0600 5 Days #5 syringe Haloperidol [Haldol] 0.5 mg PO 0800 5 Days #5 tablet HYDROcodone/Acet 5/325 mg [[place] 5-325 mg] 1 tab PO 0800,1400,2000 PRN 3 Days # 9 tablet PRN Reason: Pain LORazepam [Ativan] 0.25 mg PO 1600 5 Days #5 tablet Home Medications: Albuterol Sulfate [Ventolin Hfa] 2 puff IH Q4H PRN 06/10/16 [History] Docusate [Colace] 100 mg PO DAILY 06/10/16 [History] Levothyroxine [Synthroid] 75 mcg PO 0630 06/10/16 [History] Folic Acid 1 mg PO DAILY #90 tablet 06/17/16 [Rx] Ascorbic Acid [Vitamin C] 250 mg PO DAILY 08/18/16 [History] Haloperidol [Haldol] 1 mg PO 1600 08/18/16 [History] Omeprazole [PriLOSEC] 40 mg PO DAILY 06/11/17 [History] Guaifenesin [Mucus Relief] 600 mg PO BID 02/11/18 [History] Lactulose 20 gm PO BID PRN 02/11/18 [History] MORPHINE SUL Oral CONC [Roxanol Oral Conc] 10 mg PO Q4H PRN 02/11/18 [History] Melatonin 5 mg PO HS 02/11/18 [History] Multivitamin [One Daily Multivitamin] 1 tab PO DAILY 02/11/18 [History] Potassium Chloride [Klor-Con 10] 10 meq PO DAILY 02/11/18 [History] Promethazine [Phenergan] 25 mg IM ONCE PRN 02/11/18 [History] Sennosides [Senna] 8.6 mg PO BID 02/11/18 [History] Ceftriaxone Sodium [Ceftriaxone] 2 gm IV DAILY 5 Days #5 vial.port 02/14/18 [Rx] Enoxaparin [Lovenox] 40 mg SQ 0600 5 Days #5 syringe 02/14/18 [Rx] HYDROcodone/Acet 5/325 mg [[place] 5-325 mg] 1 tab PO 0800,1400,2000 PRN 3 Days # 9 tablet 02/14/18 [Rx] Haloperidol [Haldol] 0.5 mg PO 0800 5 Days #5 tablet 02/14/18 [Rx] LORazepam [Ativan] 0.25 mg PO 1600 5 Days #5 tablet 02/14/18 [Rx] Allergies/Adverse Reactions: 3 Allergy/AdvReac Type Severity Reaction Status Date / Time Penicillins [PCN] Allergy Unknown Rash Verified 02/11/18 16:16 - Respiratory Orders Smoking Cessation: Smoking cessation has been advised. For more information, call the [place] Tobacco Quit Line at 5-409-VSID-NOW. - Advance Directives Code Status: DNR-Comfort Care - Mobility Orders Bedrest - Rehabiliation Orders Rehab Potential: Fair Rehab Orders: ROM Exercises, Evaluation for Physical Therapy, Evaluation for Occupational Therapy - Diet Orders Regular CERTIFICATION: I certify that the transfer of the above named patient to an Extended Care Facility is necessary for the continuing treatment of the diagnosis listed. The above information is true and accurate reflection of patient's current condition. Confidential - Redisclosure prohibited without a patient's written consent.
[2018-02-14] MEDS ORDERED: cefTRIAXone 2,000 MG in 0.9 % Sodium Chloride Mini Bag 100 ML IVPB SCH (20:00)
== END 2018-02-14 18:43 ==
LOC: EMEROOARM 14:59 → SUATTDRO 17:11 → 2ANU 17:11 → INTOOBSV 17:11 → 2ANU 17:37
PROVIDERS: ADMIT Internal Medicine; ATTEND Internal Medicine